=== PATIENT | female | born 1950 | race Caucasian/White ===

== ENCOUNTER 2016-08-12 22:51 | Emergency (ER) | payer OTHER ==
[~2016-08-12] VITALS: Ht 167.6 cm; Wt 49.9 kg
[~2016-08-12 22:51] MED LIST: ALPR2TAB2 PO; FERR325T PO; LEV50T PO; LOVA10TA54 PO; METO25TA62 PO; MIRT30TA PO; MULTTAB61 PO; OMEP20CA5 PO; OXYC10TA44 PO; PREMARIN PO; VENL150C58 PO
[2016-08-13 02:39] VITALS: BP 159/73
== END 2016-08-13 02:46 | disposition home or self-care (01) ==
LOC: ER 22:52
DX: M79.7 Fibromyalgia (principal); Z90.710 Acquired absence of both cervix and uterus; K21.9 Gastro-esophageal reflux disease without esophagitis; E78.5 Hyperlipidemia, unspecified; I10 Essential (primary) hypertension; F17.210 Nicotine dependence, cigarettes, uncomplicated

== ENCOUNTER 2017-04-11 13:20 | Emergency (ER) | payer OTHER ==
[~2017-04-11] VITALS: Ht 167.6 cm; Wt 40.8 kg
[~2017-04-11 13:20] MED LIST changes: +FERR-20 PO; -FERR325T PO; -OMEP20CA5 PO; +OMEP20CA74 PO
[2017-04-11 14:09] LABS: Basophils # (auto) 0 uL; Basophils % (auto) 0.6 % (0.0-2.0); Eosinophils # (auto) 0 uL; Eosinophils % (auto) 0.4 % (0.0-7.0); Hematocrit 42.6 % (36.0-46.0); Hemoglobin 13.9 g/dL (12.2-16.2); Lymphocytes # (auto) 1.9 uL; Mean Corpuscular Hemoglobin 30.8 pg (28.0-32.0); Mean Corpuscular Hgb Conc. 32.7 g/dL (32.0-36.0); Mean Corpuscular Volume 94.1 fL (80.0-100.0); Mean Platelet Volume 7.3 fL (6.9-10.8); Monocytes # (auto) 0.6 uL; Monocytes % (auto) 8.4 % (0.0-12.0); Neutrophils # (auto) 4.4 uL; Neutrophils % (auto) 63.6 % (37.0-80.0); Nucleated Red Blood Cells % 0.1 %; Platelet Count (auto) 351 10^3/uL (140-450); Red Cell Distribution Width 14.4 % (11.8-14.3); White Blood Cell 6.9 10^3/uL (4.4-10.8)
[2017-04-11 14:42] LABS: Albumin 3.4 g/dL (3.4-5.0); BUN/Creatinine Ratio 31.1; Bilirubin, Total 0.2 mg/dL (0.2-1.0); Calcium 8.6 mg/dL (8.5-10.1); Magnesium 2.4 mg/dL (1.6-2.6); Total Protein 6.5 g/dL (6.4-8.2)
[2017-04-11 16:31] VITALS: BP 125/85
== END 2017-04-11 16:47 | disposition home or self-care (01) ==
LOC: ER 13:27
DX: K58.9 Irritable bowel syndrome, unspecified (principal); K21.9 Gastro-esophageal reflux disease without esophagitis; E78.5 Hyperlipidemia, unspecified; I10 Essential (primary) hypertension; Z90.49 Acquired absence of other specified parts of digestive tract; Z90.710 Acquired absence of both cervix and uterus; F17.210 Nicotine dependence, cigarettes, uncomplicated
CPT/HCPCS: 36415; 74176; 80053; 83735; 85025

== ENCOUNTER 2018-12-29 01:31 | Emergency (ER) | payer MEDICARE, OTHER ==
[~2018-12-29] VITALS: Ht 172.7 cm; Wt 54.4 kg
[2018-12-29 01:39] VITALS: BP 170/80
== END 2018-12-29 05:25 | disposition left against medical advice (07) ==
LOC: ER 01:31 → EDBD 01:31 → ER 05:25
DX: R10.13 Epigastric pain (principal); R11.2 Nausea with vomiting, unspecified; R19.7 Diarrhea, unspecified; Z53.21 Procedure and treatment not carried out due to patient leaving prior to being seen by health care provider

== ENCOUNTER 2019-02-09 10:27 | Inpatient (IN) | payer MEDICARE, OTHER ==
[2019-02-09] VITALS (23 sets, daily range): BP systolic 95–127; BP diastolic 45–72
[~2019-02-09] VITALS: Ht 160 cm; Wt 50.0 kg
--- NOTE | 2019-02-09 03:10 | NUR ---
pt vs stable no ss of distress noted at this time. will continue to care for and monitor
[2019-02-09] MEDS ORDERED: MIDAZOLAM DRIP 50 mg/50mL 50 ML IV ONE (10:33)
[2019-02-09] MEDS ORDERED: SODIUM CHLORIDE 0.9% 1,000 ML IV ONE ×3 (10:40→13:45)
[2019-02-09] MEDS ORDERED: PANTOPRAZOLE 80 MG in SODIUM CHL 0.9% 60 ML IV ONE (10:45)
[2019-02-09] MEDS ORDERED: NOREPINEPHRINE 8 MG/250ML KIT 250 ML IV ONE (10:48)
[2019-02-09 11:07] LABS: Basophils # (auto) 0.1 uL; Eosinophils # (auto) 0 uL; Hemoglobin 9.5 g/dL (12.2-16.2); Neutrophils # (auto) 10.5 uL
[2019-02-09 11:09] LABS: Basophils % (auto) 0.7 % (0.0-2.0); Eosinophils % (auto) 0.1 % (0.0-7.0); Hematocrit 30.2 % (36.0-46.0); Lymphocytes # (auto) 1.7 uL; Lymphocytes % (auto) 13.4 % (10.0-50.0); Mean Corpuscular Hemoglobin 24.6 pg (28.0-32.0); Mean Corpuscular Hgb Conc. 31.4 g/dL (32.0-36.0); Mean Corpuscular Volume 78.2 fL (80.0-100.0); Monocytes # (auto) 0.7 uL; Monocytes % (auto) 5.6 % (0.0-12.0); Neutrophils % (auto) 80.2 % (37.0-80.0); Platelet Count (auto) 578 10^3/uL (140-450); Red Blood Cells 3.87 10^6/uL (4.0-5.20); Red Cell Distribution Width 17.5 % (11.8-14.3); White Blood Cell 13.1 10^3/uL (4.4-10.8)
[2019-02-09 11:11] LABS: Urine Bacteria FEW /hpf (None Seen); Urine Blood Negative /uL (Negative); Urine Hyaline Cast FEW /lpf (0 - 2); Urine Mucus FEW (None Seen); Urine Specific Gravity 1.021 (1.001-1.035); Urine WBC 2 /hpf (0 - 5)
[2019-02-09 11:28] LABS: Albumin 2.4 g/dL (3.4-5.0); Calcium 8.3 mg/dL (8.5-10.1); Potassium 3.3 mmol/L (3.5-5.1)
[2019-02-09 11:30] LABS: Lactic Acid w/Reflex 6.4 mmol/L (0.4-2.0)
[2019-02-09 11:32] LABS: Bilirubin, Total 0.3 mg/dL (0.2-1.0); Total Protein 5.3 g/dL (6.4-8.2)
[2019-02-09] MEDS ORDERED: VANCOMYCIN 1GM/250ML 250 ML IV ONE (11:45)
[2019-02-09] MEDS ORDERED: PIPERACILLIN-TAZOB 3.375GM 100 ML IV ONE (11:45)
[2019-02-09] MEDS ORDERED: NOREPINEPHRINE 8 MG/250ML KIT 250 ML IV SCH (13:45)
[2019-02-09] MEDS ORDERED: NITROGLYCERIN 0.4 MG SL TAB SL PRN (13:45)
[2019-02-09] MEDS ORDERED: SODIUM CHLORIDE 0.9% 2,000 ML IV ONE ×2 (13:45)
[2019-02-09] MEDS ORDERED: DEXTROSE (50%) 50ML SYRG IV PRN (13:45)
[2019-02-09] MEDS ORDERED: VANCOMYCIN PER PHARMACY 0 MG IV SCH (13:45)
[2019-02-09] MEDS ORDERED: MORPHINE SULF INJ 2 MG/ML SYRINGE 1ML IV PRN (13:45)
[2019-02-09 13:53] LABS: Basophils # (auto) 0.1 uL; Eosinophils # (auto) 0 uL; Monocytes # (auto) 1.2 uL
[2019-02-09 13:55] LABS: Basophils % (auto) 0.7 % (0.0-2.0); Hematocrit 27.5 % (36.0-46.0); Hemoglobin 8.4 g/dL (12.2-16.2); Lymphocytes # (auto) 1.3 uL; Mean Corpuscular Hemoglobin 24.3 pg (28.0-32.0); Mean Corpuscular Hgb Conc. 30.5 g/dL (32.0-36.0); Mean Corpuscular Volume 79.7 fL (80.0-100.0); Monocytes % (auto) 5.4 % (0.0-12.0); Neutrophils # (auto) 18.6 uL; Neutrophils % (auto) 87.9 % (37.0-80.0); Platelet Count (auto) 584 10^3/uL (140-450); Red Blood Cells 3.45 10^6/uL (4.0-5.20); Red Cell Distribution Width 17.9 % (11.8-14.3); White Blood Cell 21.2 10^3/uL (4.4-10.8)
[2019-02-09 14:28] LABS: INR 1.01 (0.9-1.15); Partial Thromboplastin Time 22.2 sec (23.64-32.05)
[2019-02-09] MEDS: POTASSIUM CHLORIDE 20 MEQ in D5W 5% 1,000 ML IV SCH (14:39)
[2019-02-09] MEDS: InsuLIN REG 1unit/0.01ml Soln (100units/ml) SC SCH ×2 (16:15→22:00)
[2019-02-09] MEDS: metroNIDAZOLE 500MG/100ML 100 ML IV SCH ×2 (17:36→23:32)
--- NOTE | 2019-02-09 17:55 | NUR ---
received report from security guard supervisor
[2019-02-09] MEDS: ACCU-CHEK COMFORT CURVE STRIP VI SCH ×2 (18:11→22:00)
--- NOTE | 2019-02-09 18:37 | NUR ---
Admit to ICU from JESSICA RODRIGUEZitted to ICU via antoinette on bus and sys integration senior manager. Patient transfered to bed, connected to icu monitors, BVM at bedside. Patient connected to ICU monitoring, weighed by bedscale, oriented to EDDY RUIZ, RN primary RN, unit,and poc.
--- NOTE | 2019-02-09 19:00 | NUR ---
family called pt daughter called. poc reviewed with pt daughter. all questions and concerns addressed at this time.
--- NOTE | 2019-02-09 19:15 | NUR ---
open assumed care of female pt from er via er bed on room air. connected pt to icu monitors, pt vs are stable. pt states shes not in pain, she is just really tired. pupils equal and briskly reactive. pt is ao x3.place self and time.pt educated on where and why she is here. pt verbalized understanding. , pt has 20 g to L wrist and central rij, both iv sites are asymptomatic, dressings are clean dry and intact. pt has a rectal tube draining what appears to be a large amount of dark red blood mixed with stool.pt has a rectal thermometer. pinkish blanchable area to sacrum. Optifoam in place as a preventive even though pt is able to move and turn herself. pillows are in place to offload pressure of pts stuart prominences.pt educated operations planner light, pt verbalized understanding, call light within reach. bed is in lowest position, wheels locked, hob 45*. pt in full view of rn station. will continue to care for and monitor.
--- NOTE | 2019-02-09 19:30 | NUR ---
radiology called and said to advance the ngt 6cm placement verified.
[2019-02-09] MEDS: PIPERACILLIN-TAZOB 3.375GM 100 ML IV SCH ×2 (20:10→23:32)
--- NOTE | 2019-02-09 21:45 | NUR ---
family called pt daughter called.pt status update with pt daughter. all questions and concerns addressed at this time.
--- NOTE | 2019-02-09 22:20 | NUR ---
no insulin at this time pt bs is within normal range, no insulin needed at this time.
[2019-02-10] VITALS (66 sets, daily range): BP systolic 110–141; BP diastolic 49–72
[2019-02-10] MEDS: POTASSIUM CHLORIDE 20 MEQ in D5W 5% 1,000 ML IV SCH ×2 (02:17→08:05)
--- NOTE | 2019-02-10 03:50 | NUR ---
hygiene partial bed bath and aric change preformed. suction canisters and tubing changed.
[2019-02-10 04:38] LABS: Eosinophils # (auto) 0 uL; Hematocrit 32.8 % (36.0-46.0); Hemoglobin 10.7 g/dL (12.2-16.2); Lymphocytes # (auto) 1.9 uL; Mean Corpuscular Hgb Conc. 32.6 g/dL (32.0-36.0); Monocytes # (auto) 0.9 uL
[2019-02-10 04:41] LABS: Basophils # (auto) 0 uL; Basophils % (auto) 0.4 % (0.0-2.0); Eosinophils % (auto) 0.1 % (0.0-7.0); Lymphocytes % (auto) 17.6 % (10.0-50.0); Mean Corpuscular Hemoglobin 26.2 pg (28.0-32.0); Mean Corpuscular Volume 80.3 fL (80.0-100.0); Monocytes % (auto) 8.6 % (0.0-12.0); Neutrophils % (auto) 73.3 % (37.0-80.0); Platelet Count (auto) 480 10^3/uL (140-450); Red Blood Cells 4.08 10^6/uL (4.0-5.20); Red Cell Distribution Width 18.1 % (11.8-14.3)
--- NOTE | 2019-02-10 05:05 | NUR ---
pt awake and talking pt reoriented to why she is here. pt vs are stable. no ss of distress noted at this time
[2019-02-10 05:15] LABS: Albumin 2.2 g/dL (3.4-5.0); BUN/Creatinine Ratio 44.6
[2019-02-10 05:20] LABS: Bilirubin, Total 0.3 mg/dL (0.2-1.0); Total Protein 4.9 g/dL (6.4-8.2)
[2019-02-10] MEDS: metroNIDAZOLE 500MG/100ML 100 ML IV SCH ×3 (05:37→21:45)
[2019-02-10] MEDS: PIPERACILLIN-TAZOB 3.375GM 100 ML IV SCH ×4 (06:13→23:39)
[2019-02-10] MEDS: InsuLIN REG 1unit/0.01ml Soln (100units/ml) SC SCH ×4 (06:24→21:45)
[2019-02-10] MEDS: ACCU-CHEK COMFORT CURVE STRIP VI SCH ×4 (06:25→21:45)
--- NOTE | 2019-02-10 06:46 | NUR ---
called pts daughter joon updated on pts status. joon verbalized understanding and stated she will be in later today to picking table worker pts medications and visit her mom.
--- NOTE | 2019-02-10 06:49 | NUR ---
no insulin at this time pt bs is within normal range, per prescribed protocol no insulin needed at this time.
[2019-02-10] MEDS ORDERED: POTASSIUM CHL 20MEQ/100ML 100 ML IV SCH (07:45)
[2019-02-10] MEDS ORDERED: POTASSIUM EFFERVESENT TAB 25 MEQ PO ONE ×2 (07:45→08:00)
[2019-02-10] MEDS: ACETAMINOPHEN 650 mg PER 20 mL UD PO PRN (08:01)
[2019-02-10] MEDS ORDERED: POTASSIUM CHL 20MEQ/100ML 200 ML IV ONE (08:04)
[2019-02-10] MEDS: POTASSIUM CHL 20MEQ/100ML 100 ML IV SCH ×2 (08:20→09:36)
--- NOTE | 2019-02-10 09:35 | NUR ---
Dr. Perez at bedside.
--- NOTE | 2019-02-10 11:04 | NUR ---
Stool sample collected and sent to lab.
--- NOTE | 2019-02-10 14:12 | NUR ---
Dr. Chua at bedside.
[2019-02-10] MEDS ORDERED: GOLYTELY 4L KIT NG ONE (14:30)
--- NOTE | 2019-02-10 14:46 | NUR ---
Cardiac consult placed by the RN, spoke with Swati via answering service.
[2019-02-10 14:52] LABS: Basophils # (auto) 0.1 uL; Basophils % (auto) 0.6 % (0.0-2.0); Eosinophils # (auto) 0 uL; Hemoglobin 10.5 g/dL (12.2-16.2); Lymphocytes # (auto) 1.7 uL; Monocytes # (auto) 0.8 uL; Monocytes % (auto) 7.7 % (0.0-12.0)
[2019-02-10 14:54] LABS: Hematocrit 32.6 % (36.0-46.0); Lymphocytes % (auto) 16.7 % (10.0-50.0); Mean Corpuscular Hgb Conc. 32.3 g/dL (32.0-36.0); Mean Corpuscular Volume 80.3 fL (80.0-100.0); Neutrophils # (auto) 7.5 uL; Nucleated Red Blood Cells % 0.1 %; Platelet Count (auto) 486 10^3/uL (140-450); Red Blood Cells 4.06 10^6/uL (4.0-5.20); Red Cell Distribution Width 18.5 % (11.8-14.3)
--- NOTE | 2019-02-10 15:21 | NUR ---
Critical Lab Dr. Perez updated regarding patients critical blood cultures, no new orders received. Patient is already on antibiotic treatment per MD.
[2019-02-10] MEDS ORDERED: VANCOMYCIN 1,250 MG in D5W 5% 250 ML IV ONE (16:00)
--- NOTE | 2019-02-10 16:00 | NUR ---
Family m liberty at bedside, updated with POC. Patients daughter verbalized understanding.
[2019-02-10] MEDS: MORPHINE SULF INJ 2 MG/ML SYRINGE 1ML IV PRN ×2 (16:18→20:46)
--- NOTE | 2019-02-10 16:23 | NUR ---
SBAR report given MEGHNA Yarbrough.
--- NOTE | 2019-02-10 17:00 | NUR ---
ICU DOWNGRADE to 282 JESSICA RIVERA admitted to Telemetry unit after SBAR received. Patient oriented to MARIAELENA TEMPLE, RN primary RN, unit, room, bed, and unit policies regarding patient care and visiting hours. Patient now on continuous telemetry monitoring, tele box # 59 and telemetry reading on arrival to unit is sinus rhythm 96 bpm with a BBB. Patient placed on bedside oxygen, weighed by bed scale and encouraged to call if they need something. All questions and concerns addressed, patient verbalized understanding.
--- NOTE | 2019-02-10 17:02 | NUR ---
Patient transported to room 282 with all personal belongings. Family member at bedside. No distress noted at time of departure.
--- NOTE | 2019-02-10 19:25 | NUR ---
Opening Shift Note Assumed care of patient, awake and alert. No signs of sob. Patient verbalized pain in abdomen. Will administer ordered pain medication. Instructed on POC and to call for assist PRN, will continue to monitor for changes Q1hr and PRN. Side rails up x2. Bed locked in lowest position. Call light within reach.
--- NOTE | 2019-02-10 19:59 | NUR ---
Emptied 600 cc of dark green liquid from stool collection bag.
--- NOTE | 2019-02-10 21:42 | NUR ---
MD Called Spoke to Dr. Graham re:current pain medication Morphine 2mg Q4PRN not relieving pain. This nurse also confirmed to continue with Golitely prep. with Cardio clearance still pending. MD ordered to continue with prep. and to increase Morphine to 4mg Q4PRN. Continue care.
[2019-02-10] MEDS: MORPHINE SULFATE 4 MG/ML SYR/VIAL IV PRN (22:52)
[2019-02-10] MEDS: MUPIROCIN 2% OINT 15gm or 22gm TOP SCH (22:52)
[2019-02-11] MEDS: MORPHINE SULFATE 4 MG/ML SYR/VIAL IV PRN (02:45)
[2019-02-11 05:58] VITALS: BP 118/58
[2019-02-11 06:02] LABS: Basophils % (auto) 0.5 % (0.0-2.0); Eosinophils # (auto) 0 uL; Eosinophils % (auto) 0.2 % (0.0-7.0); Lymphocytes # (auto) 1.7 uL; Monocytes # (auto) 0.7 uL; Neutrophils % (auto) 76.7 % (37.0-80.0); Red Cell Distribution Width 18.2 % (11.8-14.3)
[2019-02-11 06:07] LABS: Basophils # (auto) 0 uL; Hematocrit 30.7 % (36.0-46.0); Mean Corpuscular Hemoglobin 26.6 pg (28.0-32.0); Mean Corpuscular Hgb Conc. 32.7 g/dL (32.0-36.0); Mean Corpuscular Volume 81.2 fL (80.0-100.0); Monocytes % (auto) 6.6 % (0.0-12.0); Neutrophils # (auto) 8.2 uL; Platelet Count (auto) 460 10^3/uL (140-450); Red Blood Cells 3.78 10^6/uL (4.0-5.20); White Blood Cell 10.7 10^3/uL (4.4-10.8)
[2019-02-11 06:33] LABS: Albumin 2.2 g/dL (3.4-5.0); BUN/Creatinine Ratio 20.2; Calcium 8.2 mg/dL (8.5-10.1); Potassium 4.3 mmol/L (3.5-5.1)
[2019-02-11 06:35] LABS: Bilirubin, Total 0.4 mg/dL (0.2-1.0); Total Protein 4.9 g/dL (6.4-8.2)
[2019-02-11] MEDS: metroNIDAZOLE 500MG/100ML 100 ML IV SCH (06:47)
[2019-02-11] MEDS: PIPERACILLIN-TAZOB 3.375GM 100 ML IV SCH ×3 (06:48→17:27)
[2019-02-11] MEDS: ACCU-CHEK COMFORT CURVE STRIP VI SCH ×4 (06:48→21:52)
[2019-02-11] MEDS: InsuLIN REG 1unit/0.01ml Soln (100units/ml) SC SCH ×4 (06:48→21:51)
[2019-02-11] MEDS: POTASSIUM CHLORIDE 20 MEQ in D5W 5% 1,000 ML IV SCH ×2 (07:03→18:37)
--- NOTE | 2019-02-11 07:30 | NUR ---
Dr. Chua called Ordered to re-call Dr. Church for a cardio clearance prior to colonoscopy. Will endorse to day shift RN.
--- NOTE | 2019-02-11 07:46 | NUR ---
Endorsed care to day shift MEGHNA Davis. Patient in bed awake with no signs of distress.
--- NOTE | 2019-02-11 08:27 | NUR ---
PT CLEARED BY CARDIO FOR COLONOSCOPY. DR. COOPER PAGED AND LEFT MESSAGE REGARDING CLEARANCE WITH DR. COOPER AUTOMATION TEST ENGINEER KWAKU.
[2019-02-11 09:00] VITALS: BP 99/51
[2019-02-11] MEDS: HYDROmorphone HCL 2 MG/ML VL IV PRN ×3 (09:35→15:55)
[2019-02-11] MEDS: SODIUM CHLORIDE 0.9% 1,000 ML IV SCH ×2 (09:35→21:51)
[2019-02-11] MEDS: MUPIROCIN 2% OINT 15gm or 22gm TOP SCH ×2 (09:35→21:52)
[2019-02-11] MEDS: VANCOMYCIN 750mg/250ml 250 ML IV SCH (10:51)
--- NOTE | 2019-02-11 11:24 | NUR ---
Nutrition Assessment Notes please see attached link for complete assessment Est. Needs IBW [id number] kcal (25-30 kcal/kgBW), 52-67 gms pro (1.0-1.3 gms/kgBW r/t severe hypoalb). Will continue to monitor pertinent labs and reassess nutrient need prn Addendum: 02/11/19 at [address] Amended: Links added.
[2019-02-11] MEDS ORDERED: diphenhdrAMINE HCL 50 MG/1 ML VL ONE (13:06)
[2019-02-11] MEDS ORDERED: SODIUM CHLORIDE LOCK 10 ML ONE (13:06)
--- NOTE | 2019-02-11 13:30 | NUR ---
PT TAKEN TO GI LAB. NO DISTRESS AT MOMENT.
[2019-02-11] MEDS: MIDAZOLAM HCL 5 MG/ML-1ML VIAL ONE ×3 (13:36→13:43)
[2019-02-11] MEDS: fentaNYL CITRATE 100 MCG/2 ML VL ONE ×3 (13:36→13:43)
--- NOTE | 2019-02-11 14:40 | NUR ---
PT BACK IN UNIT, PT AWAKE, ALERT, ORIENTEDx4, EFFORTLESS BREATHING ON ROOM AIR. IV FLUIDS RESUMED. FLEXI SEAL IS NOT PRESENT AT THIS TIME, REMOVED IN GI LAB. BED LOCKED AND IN LOWEST POSITION. CALL LIGHT WITHIN REACH. WILL CONTINUE TO MONITOR.
[2019-02-11 17:00] VITALS: BP 134/62
--- NOTE | 2019-02-11 18:20 | NUR ---
NGT DC'D PER ORDER. PT TOLERATED PROCEDURE WELL. CALL LIGHT WITHIN REACH.
[2019-02-11 21:00] VITALS: BP 125/62
[2019-02-12] MEDS: PIPERACILLIN-TAZOB 3.375GM 100 ML IV SCH ×3 (00:12→12:00)
[2019-02-12 04:30] VITALS: BP 141/67
--- NOTE | 2019-02-12 05:39 | NUR ---
BM Patient had a small bile colored liquid BM.
[2019-02-12 05:58] LABS: Basophils # (auto) 0 uL; Basophils % (auto) 0.5 % (0.0-2.0); Eosinophils # (auto) 0 uL; Eosinophils % (auto) 0.4 % (0.0-7.0); Hematocrit 26.7 % (36.0-46.0); Hemoglobin 8.7 g/dL (12.2-16.2); Lymphocytes # (auto) 1.5 uL; Lymphocytes % (auto) 17.9 % (10.0-50.0); Mean Corpuscular Hemoglobin 26.6 pg (28.0-32.0); Mean Corpuscular Hgb Conc. 32.7 g/dL (32.0-36.0); Mean Corpuscular Volume 81.1 fL (80.0-100.0); Monocytes # (auto) 0.5 uL; Monocytes % (auto) 5.8 % (0.0-12.0); Neutrophils # (auto) 6.1 uL; Neutrophils % (auto) 75.4 % (37.0-80.0); Platelet Count (auto) 389 10^3/uL (140-450); Red Blood Cells 3.29 10^6/uL (4.0-5.20); Red Cell Distribution Width 18.2 % (11.8-14.3); White Blood Cell 8.1 10^3/uL (4.4-10.8)
[2019-02-12 06:11] LABS: BUN/Creatinine Ratio 13.8; Calcium 7.9 mg/dL (8.5-10.1); Potassium 3.2 mmol/L (3.5-5.1)
[2019-02-12 06:12] LABS: Bilirubin, Total 0.4 mg/dL (0.2-1.0); Total Protein 4.6 g/dL (6.4-8.2)
[2019-02-12] MEDS: ACCU-CHEK COMFORT CURVE STRIP VI SCH ×2 (06:40→11:59)
[2019-02-12] MEDS: SODIUM CHLORIDE 0.9% 1,000 ML IV SCH ×2 (06:40→15:15)
[2019-02-12] MEDS: InsuLIN REG 1unit/0.01ml Soln (100units/ml) SC SCH ×2 (06:59→11:30)
--- NOTE | 2019-02-12 07:30 | NUR ---
Endorsed care to day shift RN.
[2019-02-12] MEDS ORDERED: POTASSIUM CHL 20 Meq TABLET PO ONE (08:00)
[2019-02-12] MEDS: POTASSIUM CHLORIDE 20 MEQ in D5W 5% 1,000 ML IV SCH (08:50)
[2019-02-12 09:00] VITALS: BP 135/61
--- NOTE | 2019-02-12 09:30 | NUR ---
Called Dr. Perez that patient requested to stay for another day because she's still too weak to get up, having liquid greenish stools. MD ordered to keep the patient for another day, possible discharge tomorrow, Monday, ordered physical therapy.
--- NOTE | 2019-02-12 09:43 | NUR ---
Dr. Perez at bedside. MD ordered patient will stay for another day, possible discharge tomorrow, advance diet as tolerated, follow up with GI doctor as outpatient.
[2019-02-12] MEDS: VANCOMYCIN 750mg/250ml 250 ML IV SCH (09:52)
[2019-02-12] MEDS: MUPIROCIN 2% OINT 15gm or 22gm TOP SCH ×2 (09:53→21:22)
--- NOTE | 2019-02-12 12:00 | NUR ---
Patient sitting in chair, stated she wants to go home today, requested to have her Garland catheter removed. Garland catheter removed, about 750 ml of clear, yellowish urine collected from the Garland catheter. Will call Dr. Perez.
--- NOTE | 2019-02-12 12:08 | NUR ---
Called Dr. Perez. made aware patient wants to go home today. Dr. Perez ordered to resume the discharge order, let the patient go home today.
--- NOTE | 2019-02-12 12:40 | NUR ---
MRSA (both nares) swab done. Specimen sent to Laboratory.
[2019-02-12 13:00] VITALS: BP 130/70
--- NOTE | 2019-02-12 15:00 | NUR ---
PT DECLINED P.T. BECAUSE OF GOING HOME.
--- NOTE | 2019-02-12 15:20 | NUR ---
Daughter at bedside, stated the patient sent her concerning text messages of ending her life. Informed daughter that patient is not confused, signed the discharge papers, waiting for her granddaughter to pick her up. Daughter said patient lives with her but she works. Charge Nurse Cindy came over, spoke with the patient and daughter.
--- NOTE | 2019-02-12 15:28 | NUR ---
Called Dr. Perez that patient has suicidal thoughts, daughter at bedside stated the patient sent her messages that she wanted to , Charge Nurse Cindy spoke with the patient, patient stated she's a danger to the kids (daughter's kids). Dr. Perez ordered Tele Psych Consult, if cleared by psychiatrist, proceed with discharge, ordered not to reinsert a new IV line, no more IV antibiotics.
--- NOTE | 2019-02-12 15:40 | NUR ---
[facility] Tele Monitor not available until tomorrow as per Charge Nurse Cindy. Patient to have a Sitter.
--- NOTE | 2019-02-12 15:45 | NUR ---
Informed Will of Tele QMed for Tele Psych Consult that [facility] Tele Psych Monitor is not available until tomorrow, will look for the [facility] Tele Monitor to be set up. Will said give them a call back ([phone]) when the machine is available at the patient's room.
--- NOTE | 2019-02-12 16:06 | NUR ---
Discharge planning per consult, patient has orders to dc with home health. [facility] Placed a follow up call, spoke with Control Clerk Head Taylor and was advised that they will use [facility]. Placed a follow up call to [facility], spoke with Nandini and was advised that they did receive the referral, and they will accept this patient onto services and start of care will be within 24-48 hours upon discharge. Nurse Brock was advised of dc plan. Addendum: 02/12/19 at 1613 by ANN ADAME Amended: Links added.
[2019-02-12] MEDS: ACETAMINOPHEN 650 mg PER 20 mL UD PO PRN ×2 (16:14→21:23)
--- NOTE | 2019-02-12 16:43 | NUR ---
Assessment Pt is a 68 yr old female alert and oriented. Prior to admit, pt lives with daughter and her family. Pt's daughter, Chelsea Randhawa, is her emergency contact at [phone]. Pt was independent with ADLs and ambulated with a cane or walker. Pt admitted due to complications with ulcerative colitis. Pt is aware and accepting of diagnosis. Pt's income is stable. Pt has no interest in AD. Pt granddaughter can transport home upon d/c. Pt plans to d/c home upon medical clearance. Addendum: 02/12/19 at 1647 by CHEPE DIAZ Amended: Links added.
[2019-02-12 17:00] VITALS: BP 126/69
--- NOTE | 2019-02-12 17:00 | NUR ---
Sadaf/NANDO Zimmer at bedside.
--- NOTE | 2019-02-12 19:00 | NUR ---
Called Dr. Perez that the Tele Psych monitors are all not working, possibly get fixed by tomorrow, Monday, Sitter at bedside. Dr. Perez ordered to keep the patient until the Tele Psych Consult is done by tomorrow, if cleared by psychiatrist, proceed with discharge. said no need for IV insertion, discontinue Accu check and IV antibiotics, follow up with Tele Psych Consult tomorrow.
--- NOTE | 2019-02-12 20:30 | NUR ---
Patient has verbalizes of having no suicidal thoughts at this time, or has no future plan. Addendum: 02/13/19 at 0410 by Bc Guerin RN sitter at bedside.
--- NOTE | 2019-02-13 | NUR ---
Patient refused to turn/repositioned q2 hours for skin breakdown prevention. Educated patient on the importance of turning/repositioned q2 hours, and patient verbally acknowledge education given and still refuses to turn or get repositioned q 2 hours. Educated patient, that she has blanchable redness on buttocks/sacrum area and its very important on turning and repositioned. Patient still refuses. Sitter at bedside.
--- NOTE | 2019-02-13 02:00 | NUR ---
patient still refuses to be turned/repositioned q2 hours.
--- NOTE | 2019-02-13 04:07 | NUR ---
patient still refuses to be turned/repositioned q2 hours.
[2019-02-13 04:23] VITALS: BP 147/54
[2019-02-13 06:18] LABS: Albumin 2.1 g/dL (3.4-5.0); BUN/Creatinine Ratio 15.1; Calcium 7.9 mg/dL (8.5-10.1)
[2019-02-13 06:19] LABS: Basophils # (auto) 0 uL; Basophils % (auto) 0.3 % (0.0-2.0); Bilirubin, Total 0.3 mg/dL (0.2-1.0); Eosinophils # (auto) 0 uL; Eosinophils % (auto) 0.5 % (0.0-7.0); Hematocrit 28.2 % (36.0-46.0); Lymphocytes # (auto) 1.4 uL; Lymphocytes % (auto) 23.2 % (10.0-50.0); Mean Corpuscular Hgb Conc. 32.1 g/dL (32.0-36.0); Monocytes # (auto) 0.4 uL; Monocytes % (auto) 6.7 % (0.0-12.0); Neutrophils # (auto) 4.2 uL; Neutrophils % (auto) 69.3 % (37.0-80.0); Platelet Count (auto) 408 10^3/uL (140-450); Red Blood Cells 3.48 10^6/uL (4.0-5.20); Red Cell Distribution Width 18.3 % (11.8-14.3); Total Protein 4.7 g/dL (6.4-8.2); White Blood Cell 6.1 10^3/uL (4.4-10.8)
[2019-02-13 06:28] LABS: Potassium 2.9 mmol/L (3.5-5.1)
--- NOTE | 2019-02-13 06:29 | NUR ---
received phone call from phlebotomist lab assistant ilene and he notified me that patient has critical value of potassium of 2.9.
--- NOTE | 2019-02-13 06:30 | NUR ---
paged md to notify of critical value of potassium 2.9, awaiting phone call back.
[2019-02-13] MEDS ORDERED: POTASSIUM CHL 20 Meq TABLET PO ONE (06:45)
--- NOTE | 2019-02-13 06:47 | NUR ---
spoke to md kaur from [facility], and notified her of patient having critical value potassium of 2.9. Md kaur provided new order of potassium 40 meq po one time dose. read back and confirmed. will carry out.
--- NOTE | 2019-02-13 07:30 | NUR ---
Opening Shift Note Assuming care of patient at this time. Patient is awake and alert. Patient shows no signs or symptoms of distress or shortness of breath. Instructed patient on the plan of care for today and to call for assistance as needed. When asked if she is having suicidal thoughts, patient states, "Not today, but I was yesterday." Informed patient of discharge plans, patient states, "I don't feel safe to go home. I'm having hallucinations. I've been having thoughts of hurting myself." When asked if she has a suicidal plan, patient replies, "Yes. I always think about my medications." Asked patient if she thinks about overdosing, patient replies, "Yes." Call light within reach. Sitter at bedside for safety.
[2019-02-13] MEDS: ACETAMINOPHEN 650 mg PER 20 mL UD PO PRN ×2 (08:44→14:45)
[2019-02-13 09:00] VITALS: BP 133/68
--- NOTE | 2019-02-13 09:00 | NUR ---
Family at bedside Daughter at bedside at this time.
--- NOTE | 2019-02-13 10:00 | NUR ---
Telepsych Machines for telepsych are still not working. Telepsych unable to be done at this time.
[2019-02-13] MEDS: MUPIROCIN 2% OINT 15gm or 22gm TOP SCH ×2 (10:05→21:30)
--- NOTE | 2019-02-13 11:17 | NUR ---
Nutrition Follow-up Notes Wt.: 46.9 kg Pt was sleeping with BLACK TOP PAVER OPERATOR by bedside. per records pt with thought abt harming herself, active telepsych eval. per BLACK TOP PAVER OPERATOR pt is eating fairly well with no N.V. pt is now on soft diet with fair PO of 60%x 3 per RN doc Est. Needs IBW [id number] kcal (25-30 kcal/kgBW), 52-67 gms pro (1.0-1.3 gms/kgBW r/t severe hypoalb). Will continue to monitor pertinent labs and reassess nutrient need prn Labs: CA 7.9 L, ALB 2.1 L. Skin: Andres 16, mod risk redness sacrum per RN doc GI: Pt had 6 BM yesterday per catch basin cleaner. PES: Partially resolved: Increased nutrient needs r/t current medical condition aeb pt`s NPO with severe hypoalb 2.) Altered nutrition related lab values r/t acute/chronic medical condition aeb hyperglycemia, hypocalcemia, severe hypoalb Will continue to monitor PO intake, pertinent labs, skin status and weight trends. F/u in 3-5 days. Additional Recommendation: 1.) Consider ensure Enlive 1 carton tid. 2) consider prostat 1 packet bid . 3) continue current plan of care
[2019-02-13] MEDS ORDERED: HYDROcodone-ACET 10/325MG TAB PO PRN (12:15)
[2019-02-13 13:00] VITALS: BP 127/60
--- NOTE | 2019-02-13 15:00 | NUR ---
Telepsych Telepsych has been completed today. Spoke with Dr. Dominguez, she is recommending a 5150 hold and transfer to an inpatient psych facility. Will notify planning analyst and MD.
--- NOTE | 2019-02-13 15:32 | NUR ---
Edy from [facility] called about pt and her need for inpt psych facility. He stated [facility] works with the following psych facilities. [facility] sreekanth pillai [phone], [facility] luz elena willtet,[phone] , [facility] [phone]. Before calling any facility, we will need tele psych consult and 5150 application completed
--- NOTE | 2019-02-13 15:57 | NUR ---
PREVIOUS NOTE this note is to save noc shift time from calling o/c RN. the facilities I listed would be the information given to you by after hours heritage person.
[2019-02-13 16:45] LABS: Urine Bacteria FEW /hpf (None Seen); Urine Blood Negative /uL (Negative); Urine Specific Gravity 1.014 (1.001-1.035); Urine WBC 20 /hpf (0 - 5)
[2019-02-13 17:00] VITALS: BP 135/71
--- NOTE | 2019-02-13 17:00 | NUR ---
5150 Hold automatic punch press operator, Kerri, is working on someone to write 5150 hold. Still awaiting telepsych report from Dr. Dominguez.
--- NOTE | 2019-02-13 17:07 | NUR ---
Call to Call to Dr. Olmos at this time to notify of patient's urinalysis. New orders given.
--- NOTE | 2019-02-13 19:45 | NUR ---
RECEIVED PATIENT IN BED, AAOX4. NO DISTRESS NOTED. INTRODUCED MYSELF TO THE PATIENT. ORIENTATION DONE. SITTER IS WITH THE PATIENT. AFEBRILE. NO SOB NOTED. ABDOMINAL PAIN NOTED. WILL MEDICATE PATIENT. MILD BLE WEAKNESS NOTED. POCS DISCUSSED WITH PATIENT AND SHOWED UNDERSTANDING. BED KEPT ON LOWEST POSITION. SIDE RAILS UP. CALL LIGHT/TABLE IN REACH. KEPT COMFORTABLE.
[2019-02-13 20:00] VITALS: BP 131/62
[2019-02-13] MEDS: NITROFURANTOIN (MONO) 100 mg CAP PO SCH (21:30)
[2019-02-13 22:00] VITALS: BP 131/62
[2019-02-14] MEDS: ACETAMINOPHEN 650 mg PER 20 mL UD PO PRN ×3 (02:01→17:55)
[2019-02-14 05:00] VITALS: BP 140/65
[2019-02-14 05:57] LABS: Basophils # (auto) 0.1 uL; Basophils % (auto) 1.2 % (0.0-2.0); Eosinophils # (auto) 0 uL; Eosinophils % (auto) 0.3 % (0.0-7.0); Hematocrit 27.7 % (36.0-46.0); Nucleated Red Blood Cells % 0.1 %; White Blood Cell 9.4 10^3/uL (4.4-10.8)
[2019-02-14 05:59] LABS: Hemoglobin 9.1 g/dL (12.2-16.2); Lymphocytes # (auto) 2.6 uL; Lymphocytes % (auto) 28.1 % (10.0-50.0); Mean Corpuscular Hgb Conc. 32.7 g/dL (32.0-36.0); Mean Corpuscular Volume 82.8 fL (80.0-100.0); Monocytes # (auto) 0.5 uL; Monocytes % (auto) 5.5 % (0.0-12.0); Neutrophils # (auto) 6.1 uL; Neutrophils % (auto) 64.9 % (37.0-80.0); Platelet Count (auto) 349 10^3/uL (140-450); Red Blood Cells 3.35 10^6/uL (4.0-5.20); Red Cell Distribution Width 18.4 % (11.8-14.3)
--- NOTE | 2019-02-14 06:13 | NUR ---
ON BED, ASLEEP. NO DISTRESS NOTED. FOR MORE CARE AND MANAGEMENT.
[2019-02-14 06:14] LABS: Albumin 2.2 g/dL (3.4-5.0); BUN/Creatinine Ratio 15.3; Calcium 8.2 mg/dL (8.5-10.1)
[2019-02-14 06:48] LABS: Bilirubin, Total 0.3 mg/dL (0.2-1.0)
--- NOTE | 2019-02-14 07:30 | NUR ---
Opening Shift Note Assuming care of patient at this time. Patient is awake and alert. Patient states she is, "feeling better today." Patient denies pain at this time. Bed is locked and lowered with side rails up x2. Instructed patient on the plan of care for today and to call for assistance as needed. Call light within reach. Will continue to round hourly and as needed. Sitter at bedside for safety.
[2019-02-14 09:00] VITALS: BP 124/63
--- NOTE | 2019-02-14 09:23 | NUR ---
isamar from [facility] called me to ask when is the 5150 application to be done since this is holding up transfer to in pt psych. I spoke to RN Kerri and they are trying to get a certified 5150 RN to write 5150 application. I also asked Kerri to have the pt's RN fax me the 5150 and tele psych report to [phone] so I can fax to [facility]
--- NOTE | 2019-02-14 09:26 | NUR ---
Call to Telepsych Call to telepsych at this time. Faxed report was never received. Gave fax information again. If not received within 30 minutes this RN will call back.
--- NOTE | 2019-02-14 09:31 | NUR ---
Telepsych Report Telepsych Report received. Will put in chart.
[2019-02-14] MEDS: NITROFURANTOIN (MONO) 100 mg CAP PO SCH ×2 (10:29→22:24)
[2019-02-14] MEDS: DULoxetine HCL 30 MG CAP PO SCH (10:29)
[2019-02-14] MEDS: MUPIROCIN 2% OINT 15gm or 22gm TOP SCH ×2 (10:30→22:25)
--- NOTE | 2019-02-14 12:00 | NUR ---
Fax to Weigh Machine Operator Faxed a copy of the 5150 hold and the telepsych report to [facility] at number provided at this time.
--- NOTE | 2019-02-14 12:30 | NUR ---
Call to [facility] Call to manager paid at this time. No answer.
[2019-02-14 13:00] VITALS: BP 124/65
--- NOTE | 2019-02-14 13:30 | NUR ---
Call to [facility] Call to route manager at this time. No answer.
--- NOTE | 2019-02-14 14:00 | NUR ---
Page to Lan Specialist Page to Neeta at this time regarding patient's placement. Awaiting callback.
[2019-02-14 17:00] VITALS: BP 141/79
--- NOTE | 2019-02-14 19:01 | NUR ---
Closing Shift Note Patient is resting in bed. Sitter at bedside. No information from case management regarding transfer. Dr. Olmos aware. Will endorse care to the gear shaper RN.
--- NOTE | 2019-02-14 19:30 | NUR ---
Opening Shift Note Report received from day shift RN. Assumed care of patient. Patient awake sitting in bed and alert x4. No S/S of distress/SOB noted and denies pain at this time. Sitter at bedside for safety. Instructed on POC and to call for assist PRN. Call light left within reach. Will continue to monitor for changes Q1hr and PRN.
[2019-02-14 22:00] VITALS: BP 140/71
[2019-02-14] MEDS ORDERED: TEMAZEPAM 15 MG CAP PO ONE (22:30)
[2019-02-15 05:00] VITALS: BP 139/79
[2019-02-15 05:37] LABS: Basophils # (auto) 0 uL; Basophils % (auto) 0.7 % (0.0-2.0); Eosinophils # (auto) 0 uL; Eosinophils % (auto) 0.4 % (0.0-7.0); Hematocrit 28.9 % (36.0-46.0); Hemoglobin 9.4 g/dL (12.2-16.2); Lymphocytes # (auto) 1.9 uL; Lymphocytes % (auto) 29.1 % (10.0-50.0); Mean Corpuscular Hemoglobin 26.4 pg (28.0-32.0); Mean Corpuscular Hgb Conc. 32.6 g/dL (32.0-36.0); Monocytes # (auto) 0.4 uL; Monocytes % (auto) 6.5 % (0.0-12.0); Neutrophils # (auto) 4.2 uL; Neutrophils % (auto) 63.3 % (37.0-80.0); Platelet Count (auto) 410 10^3/uL (140-450); Red Blood Cells 3.57 10^6/uL (4.0-5.20); Red Cell Distribution Width 18.5 % (11.8-14.3); White Blood Cell 6.6 10^3/uL (4.4-10.8)
[2019-02-15 05:55] LABS: Albumin 2.5 g/dL (3.4-5.0); Calcium 8.6 mg/dL (8.5-10.1); Potassium 4.8 mmol/L (3.5-5.1)
[2019-02-15 05:59] LABS: Bilirubin, Total 0.3 mg/dL (0.2-1.0); Total Protein 5.5 g/dL (6.4-8.2)
[2019-02-15 07:11] LABS: BUN/Creatinine Ratio 14.5
--- NOTE | 2019-02-15 08:30 | NUR ---
PT RESTING IN BED, NO DISTRESS NOTED, SITTER AT BEDSIDE. PT REPORTS NO PAIN AT THIS TIME. PT ENCOURAGED TO USE CALL LIGHT PRN, WILL CONTINUE TO MONITOR.
[2019-02-15 08:57] VITALS: BP 139/61
[2019-02-15] MEDS: NITROFURANTOIN (MONO) 100 mg CAP PO SCH ×2 (09:50→22:15)
[2019-02-15] MEDS: DULoxetine HCL 30 MG CAP PO SCH (09:51)
[2019-02-15] MEDS: MUPIROCIN 2% OINT 15gm or 22gm TOP SCH ×2 (09:53→22:16)
--- NOTE | 2019-02-15 12:06 | NUR ---
PT REQUESTING ANXIETY MEDICATION AND SLEEP MEDICATION PRN.
--- NOTE | 2019-02-15 12:10 | NUR ---
CALLED DR QUISPE, NEW ORDERS FOR XANAX PRN FOR ANXIETY, REPORTS HE DOES NOT WISH TO PRESCRIBE SLEEPING MEDICATION AT THIS TIME.
[2019-02-15] MEDS: ALPRAZolam 0.5 MG TAB PO PRN (12:30)
[2019-02-15 13:00] VITALS: BP 127/56
[2019-02-15] MEDS ORDERED: ALPRAZolam 0.5 MG TAB PO SCH (14:00)
--- NOTE | 2019-02-15 14:15 | NUR ---
SMITA MACIEL CALLED BACK, SHE REPORTS [facility] IS STILL ,WORKING ON PLACEMENT. WILL CONTINUE TO9 MONITOR.
--- NOTE | 2019-02-15 14:30 | NUR ---
SPOKE WITH SOFIA FROM [facility]. GAVE BRIEF REPORT TO SOFIA ON PT STATUS. SOFIA REPORTS THEY ARE UNABLE TO TAKE PATIENT AT THIS TIME DUE TO UNRESOLVED DIARRHEA AND PT IS NOT ABLE TO WALK OR PERFORM ADL'S. SOFIA REPORTS ONCE PATIENT IS CLEAR OF THESE, TO CALL AND A BED MAY BE AVAILABLE.
--- NOTE | 2019-02-15 15:28 | NUR ---
CALLED AND LEFT MESSAGE FOR SMITA NOTIFYING HER CHARTER [facility] WILL NOT TAKE PATIENT AT THIS TIME.
--- NOTE | 2019-02-15 16:13 | NUR ---
SPOKE WITH DR MACHUCA. REPORTED TO MD GIANG [facility] WILL NOT RECEIVE PATIENT AT THIS TIME DUE TO DIARRHEA AND PT UNABLE TO PERFORM ADL'S, NEW ORDERS FOR NEW MRSA SWAB, AND MED FOR DIARRHEA. Signed: 02/15/19 at 1615 by EBENEZER URIOSTEGUI RN
--- NOTE | 2019-02-15 16:42 | NUR ---
MRSA SWAB SENT TO LAB.
[2019-02-15 17:00] VITALS: BP 154/82
--- NOTE | 2019-02-15 19:15 | NUR ---
Opening Shift Note Report received from day shift RN. Assumed care of patient. Patient resting in bed and alert x4. No S/S of distress/SOB noted and denies pain at this time. Sitter at bedside for safety. Instructed on POC and to call for assist PRN. Call light left within reach. Will continue to monitor for changes Q1hr and PRN.
[2019-02-15 22:00] VITALS: BP 113/57
[2019-02-15] MEDS: DIPHENOXYLATE W/ATROPINE 2.5 MG TAB PO SCH (22:15)
[2019-02-16 05:00] VITALS: BP 108/52
[2019-02-16] MEDS: DIPHENOXYLATE W/ATROPINE 2.5 MG TAB PO SCH ×3 (05:53→21:25)
[2019-02-16 06:06] LABS: Basophils # (auto) 0 uL; Basophils % (auto) 0.8 % (0.0-2.0); Eosinophils # (auto) 0 uL; Hematocrit 27.9 % (36.0-46.0); Hemoglobin 9.1 g/dL (12.2-16.2); Lymphocytes # (auto) 1.6 uL; Mean Corpuscular Hgb Conc. 32.5 g/dL (32.0-36.0)
[2019-02-16 06:08] LABS: Eosinophils % (auto) 0.4 % (0.0-7.0); Lymphocytes % (auto) 31.8 % (10.0-50.0); Mean Corpuscular Hemoglobin 26.3 pg (28.0-32.0); Monocytes # (auto) 0.4 uL; Monocytes % (auto) 7.7 % (0.0-12.0); Neutrophils % (auto) 59.3 % (37.0-80.0); Platelet Count (auto) 384 10^3/uL (140-450); Red Blood Cells 3.45 10^6/uL (4.0-5.20); Red Cell Distribution Width 18.4 % (11.8-14.3)
[2019-02-16 06:21] LABS: Potassium 3.5 mmol/L (3.5-5.1)
[2019-02-16 06:38] LABS: Albumin 2.3 g/dL (3.4-5.0); BUN/Creatinine Ratio 18.6; Bilirubin, Total 0.2 mg/dL (0.2-1.0); Calcium 8.2 mg/dL (8.5-10.1); Total Protein 5.1 g/dL (6.4-8.2)
--- NOTE | 2019-02-16 08:03 | NUR ---
PT RESTING IN BED, NO DISTRESS NOTED. PT REPORTS 4/10 PAIN GENERALIZED IN BODY, BUT WANTS NO PAIN MEDICATION AT THIS TIME. PT EATING BREAKFAST AND REPORTS HER DIARRHEA IS RESOLVING. SITTER AT BEDSIDE, PT ENCOURAGED TO USE CALL LIGHT PRN, WILL CONTINUE TO MONITOR.
[2019-02-16] MEDS: ALPRAZolam 0.5 MG TAB PO PRN ×2 (08:10→16:09)
--- NOTE | 2019-02-16 08:50 | NUR ---
SPOKE WITH DR MACHUCA. REQUESTS MRSA RESULTS AND NEW ORDERS FOR PHYSICAL THERAPY. CALLED LAB, NO ANSWER, PHONE JUST KEPT RINGING, WILL CALL AGAIN FOR RESULTS.
--- NOTE | 2019-02-16 08:55 | NUR ---
CALLED LAB AGAIN, NO ANSWER, WILL RETRY.
[2019-02-16 09:00] VITALS: BP 90/45
--- NOTE | 2019-02-16 09:04 | NUR ---
CALLED LAB AGAIN, NO ANSWER.
--- NOTE | 2019-02-16 09:06 | NUR ---
SOFTWARE ENGINEER ADVISOR REPORTS PT BLOOD PRESSURE IS 90/45, HR 96. CALLED AND LEFT MESSAGE FOR DR MACHUCA. AWAITING ORDERS. PT HAS AGREED TO HAVE AN IV INSERTED. PT RESTING IN BED AND REPORTS NO DISTRESS AT THIS TIME, PT REPORTS SHE IS, "JUST SLEEPY."
[2019-02-16] MEDS ORDERED: SODIUM CHLORIDE 0.9% 500 ML IV ONE (09:30)
--- NOTE | 2019-02-16 09:30 | NUR ---
DR MACHUCA CALLED BACK, NEW ORDERS FOR 500 ML BOLUS.
--- NOTE | 2019-02-16 09:41 | NUR ---
CALLED LAB AND REQUESTED MRSA RESULTS LORY. LAB REPORTS IT TAKES 24 HOURS, BUT SHOULD RECEIVE RESULTS TODAY. NOTIFIED.
[2019-02-16] MEDS: NITROFURANTOIN (MONO) 100 mg CAP PO SCH ×2 (10:51→21:24)
[2019-02-16] MEDS: DULoxetine HCL 30 MG CAP PO SCH (10:52)
[2019-02-16] MEDS: MUPIROCIN 2% OINT 15gm or 22gm TOP SCH ×2 (10:53→21:25)
--- NOTE | 2019-02-16 10:57 | NUR ---
Attempted PT eval but pt with low BP and receiving fluids. Will attempt again later
--- NOTE | 2019-02-16 12:30 | NUR ---
AFTER 500 ML BOLUS, PT BP 121/55, HR 95.
[2019-02-16 13:30] VITALS: BP 121/55
--- NOTE | 2019-02-16 14:22 | NUR ---
PHYSICAL THERAPY CAME TO PATIENT ROOM TO WORK WITH PATIENT.
--- NOTE | 2019-02-16 14:25 | NUR ---
Nutrition Follow-up Notes Wt.: 49.3 kg today. Pt's in isolation room, asleep no immediate family member at bedside except for sitter when rounded this morning. Pt's no signs of distress noted earlier, currently on Soft diet with fair PO intake aeb 70% ave. consumed meals (x5) in last 2 days. Est. Needs IBW [id number] kcal (25-30 kcal/kgBW), 52-67 gms pro (1.0-1.3 gms/kgBW r/t severe hypoalb). Will continue to monitor pertinent labs and reassess nutrient need prn Labs: Pertinent labs wnl except for Ca 8.2 L, Tpro 5.1 L, Alb 2.3 L. Skin: Andres 16, mod risk , pt's posterior sacrum blanchable redness per finish mill operator GI: Pt had 1 BM this morning per finish mill operator. PES: Partially resolved: Increased nutrient needs r/t current medical condition aeb pt`s NPO with severe hypoalb Altered nutrition related lab values r/t acute/chronic medical condition aeb hyperglycemia, hypocalcemia, severe hypoalb Will continue to monitor PO intake, pertinent labs, skin status and weight trends. F/u in 3 to 5 days. Additional Recommendation: 1.) Consider Ensure Enlive 1 carton TID. 2.) If Albumin level continues trending down, consider Prostat 1 packet BID . 3.) Continue close supervision and feeding assistance prn during meals. 4.) Refer to RD for further nutrition educ. and weight monitoring upon discharge. 5.) Continue current plan of care.
--- NOTE | 2019-02-16 14:25 | NUR ---
NEW MRSA CAME BACK, PT NOW NEGATIVE FOR MRSA. CALLED AND LEFT MESSAGE NOTIFYING .
[2019-02-16 17:00] VITALS: BP 129/55
--- NOTE | 2019-02-16 18:10 | NUR ---
PT MRSA SWAB IS NEGATIVE. SPOKE TO KARYNA RN, KARYNA REPORTS PT HAS TO HAVE 2 NEGATIVE SWABS TO BE TRANSFERRED OUT OF ROOM. UNABLE TO FIND THE NUMBER FOR [facility] AT THIS TIME TO NOTIFY BRENNAN PT NEGATIVE, WILL CONTINUE LOOKING.
--- NOTE | 2019-02-16 18:16 | NUR ---
CALLED [employer] AT [phone], NUMBER IN CHART, RECEIVED MESSAGE, "YOUR CALL CAN NOT GO THROUGH." DID NOT SEE [employer] Communications[employer]AGE NUMBER IN SS NOTE. WILL PASS TO PARA MACHINE OPERATOR.
[2019-02-16 20:26] VITALS: BP 116/54
[2019-02-16] MEDS: MORPHINE SULF 15mg ER tab PO SCH (21:25)
[2019-02-17] MEDS: ALPRAZolam 0.5 MG TAB PO PRN (00:50)
[2019-02-17 04:02] VITALS: BP 124/62
[2019-02-17 06:10] LABS: Basophils # (auto) 0.1 uL; Eosinophils # (auto) 0 uL; Eosinophils % (auto) 0.5 % (0.0-7.0); Hematocrit 25.7 % (36.0-46.0); Hemoglobin 8.3 g/dL (12.2-16.2); Lymphocytes # (auto) 1.9 uL; Lymphocytes % (auto) 38.3 % (10.0-50.0); Mean Corpuscular Hemoglobin 26.4 pg (28.0-32.0); Mean Corpuscular Hgb Conc. 32.4 g/dL (32.0-36.0); Mean Corpuscular Volume 81.5 fL (80.0-100.0); Monocytes # (auto) 0.4 uL; Monocytes % (auto) 8.5 % (0.0-12.0); Neutrophils # (auto) 2.6 uL; Neutrophils % (auto) 51.7 % (37.0-80.0); Nucleated Red Blood Cells % 0.1 %; Platelet Count (auto) 389 10^3/uL (140-450); Red Blood Cells 3.16 10^6/uL (4.0-5.20); Red Cell Distribution Width 18.8 % (11.8-14.3)
[2019-02-17 06:41] LABS: Potassium 3.7 mmol/L (3.5-5.1)
[2019-02-17 06:51] LABS: Albumin 2.3 g/dL (3.4-5.0); BUN/Creatinine Ratio 21.2; Bilirubin, Total 0.3 mg/dL (0.2-1.0); Calcium 8.5 mg/dL (8.5-10.1)
[2019-02-17] MEDS: DIPHENOXYLATE W/ATROPINE 2.5 MG TAB PO SCH ×3 (06:53→21:57)
[2019-02-17 08:55] VITALS: BP 115/54
--- NOTE | 2019-02-17 09:35 | NUR ---
RECEIVED CALL FROM [facility]. CALL BACK NUMBER [phone]. UPDATED ON POC
[2019-02-17] MEDS: DULoxetine HCL 30 MG CAP PO SCH (10:38)
[2019-02-17] MEDS: LORazepam 0.5 MG TAB PO PRN ×2 (10:39→22:03)
[2019-02-17] MEDS: NITROFURANTOIN (MONO) 100 mg CAP PO SCH ×2 (10:39→21:58)
[2019-02-17] MEDS: MUPIROCIN 2% OINT 15gm or 22gm TOP SCH ×2 (10:40→22:03)
[2019-02-17] MEDS: MORPHINE SULF 15mg ER tab PO SCH ×2 (10:41→21:58)
--- NOTE | 2019-02-17 12:35 | NUR ---
PATIENT HAD 4 WATERY STOOLS SINCE 0700. PATIENT ALERT AND ORIENTED AND DENIES ANY DIZZINESS. WILL CONTINUE TO MONITOR
[2019-02-17 12:57] VITALS: BP 112/54
[2019-02-17] MEDS: ACETAMINOPHEN 650 mg PER 20 mL UD PO PRN (17:12)
--- NOTE | 2019-02-17 19:10 | NUR ---
OPENING NOTE- NOC SHIFT PATIENT IS SITTING UP IN BED, DAUGHTER AND GRANDSON ARE AT BEDSIDE. FAMILY IS AWARE OF ISOLATION STATUS OF PATIENT. GOOD FAMILY DYNAMICS NOTED. PATIENT IS ALERT AND ORIENTED X4 AND ANSWERS IN COMPLETE SENTENCES. PATIENT DENIES ANY CURRENT SUICIDAL THOUGHTS. DISCUSSED POC WITH PATIENT AND INSTRUCTED PATIENT TO CALL PRN; PATIENT VERBALIZES UNDERSTANDING. NURSE VOCATIONAL SERVICES SPECIALIST IS AT BEDSIDE FOR SAFETY PRECAUTIONS. PATIENT DENIES ANY PAIN AT THIS TIME. BEDSIDE TABLE WITH PERSONAL BELONGINGS WITHIN REACH. CALL LIGHT WITHIN REACH. NO S/SX OF DISTRESS, SOB OR PAIN. WILL CONTINUE TO MONITOR Q1H AND PRN.
--- NOTE | 2019-02-17 20:43 | NUR ---
DIARRHEA SMALL TO MODERATE AMOUNT AT THIS TIME. PATIENT UP TO THE BEDSIDE COMMODE WITH STANDBY ASSIST. TOLERATES ACTIVITY WELL.
[2019-02-17 21:00] VITALS: BP 124/58
--- NOTE | 2019-02-17 21:30 | NUR ---
POSITIVE MRSA CALL FROM [employer] STATED PATIENT IS POSITIVE FOR MRSA NARES.
--- NOTE | 2019-02-17 21:40 | NUR ---
URINE CULTURE SENT TO LAB
[2019-02-17 22:22] LABS: Urine Bacteria FEW /hpf (None Seen); Urine Blood Negative /uL (Negative); Urine Budding Yeast OCCASIONAL /hpf (None Seen); Urine Mucus FEW (None Seen); Urine Specific Gravity 1.013 (1.001-1.035); Urine WBC 14 /hpf (0 - 5)
[2019-02-17] MEDS: CHOLESTYRAMINE 4 GM POWDER PO SCH (23:18)
[2019-02-18 05:00] VITALS: BP 136/70
[2019-02-18] MEDS: DIPHENOXYLATE W/ATROPINE 2.5 MG TAB PO SCH ×4 (06:37→21:40)
[2019-02-18 07:05] LABS: Eosinophils # (auto) 0 uL; Hemoglobin 9.2 g/dL (12.2-16.2); Monocytes # (auto) 0.4 uL; Nucleated Red Blood Cells % 0.1 %; White Blood Cell 5.2 10^3/uL (4.4-10.8)
[2019-02-18 07:07] LABS: Basophils # (auto) 0.1 uL; Basophils % (auto) 1.3 % (0.0-2.0); Eosinophils % (auto) 0.7 % (0.0-7.0); Hematocrit 28.4 % (36.0-46.0); Lymphocytes # (auto) 2.6 uL; Lymphocytes % (auto) 50.2 % (10.0-50.0); Mean Corpuscular Hemoglobin 26.7 pg (28.0-32.0); Mean Corpuscular Hgb Conc. 32.4 g/dL (32.0-36.0); Mean Corpuscular Volume 82.5 fL (80.0-100.0); Monocytes % (auto) 8.3 % (0.0-12.0); Neutrophils # (auto) 2.1 uL; Neutrophils % (auto) 39.5 % (37.0-80.0); Platelet Count (auto) 436 10^3/uL (140-450); Red Blood Cells 3.44 10^6/uL (4.0-5.20); Red Cell Distribution Width 18.6 % (11.8-14.3)
--- NOTE | 2019-02-18 07:17 | NUR ---
ENDORSED PATIENT CARE TO DAY SHIFT MIGUELINA COFFMAN NO S/SX OF DISTRESS OR SOB. MIGUELINA COFFMAN IS AWARE THAT PATIENT IS POSITIVE FOR MRSA NARES NURSE AITCHBONE BREAKER AT BEDSIDE FOR SAFETY PRECAUTIONS.
[2019-02-18 07:25] LABS: Albumin 2.6 g/dL (3.4-5.0); Calcium 8.4 mg/dL (8.5-10.1); Potassium 3.5 mmol/L (3.5-5.1)
[2019-02-18 07:29] LABS: Bilirubin, Total 0.4 mg/dL (0.2-1.0); Total Protein 5.6 g/dL (6.4-8.2)
--- NOTE | 2019-02-18 08:59 | NUR ---
Transfer Primary RN to fax me renewed [phone] and I will fax to [facility]
[2019-02-18 09:00] VITALS: BP 115/52
--- NOTE | 2019-02-18 10:10 | NUR ---
Faxed renewed [phone] to [employer]
[2019-02-18] MEDS: DULoxetine HCL 30 MG CAP PO SCH (10:21)
[2019-02-18] MEDS: NITROFURANTOIN (MONO) 100 mg CAP PO SCH ×2 (10:21→21:40)
[2019-02-18] MEDS: MUPIROCIN 2% OINT 15gm or 22gm TOP SCH ×2 (10:23→21:40)
[2019-02-18] MEDS: MORPHINE SULF 15mg ER tab PO SCH ×2 (10:23→21:40)
[2019-02-18] MEDS: LORazepam 0.5 MG TAB PO PRN ×2 (10:34→18:50)
[2019-02-18] MEDS: CHOLESTYRAMINE 4 GM POWDER PO SCH ×2 (11:30→23:26)
[2019-02-18] MEDS ORDERED: CHL4PW PO (11:34)
[2019-02-18] MEDS ORDERED: [UNRECOGNIZED DRUG - CODE] GT (11:34)
[2019-02-18 13:00] VITALS: BP 151/51
[2019-02-18 17:00] VITALS: BP 130/61
[2019-02-18] MEDS: ACETAMINOPHEN 650 mg PER 20 mL UD PO PRN (17:09)
--- NOTE | 2019-02-18 18:43 | NUR ---
RECEIVED CALL FROM [facility]. THEY ARE NOT WILLING TO RECEIVE PATIENT UNTIL DIARRHEA IS RESOLVED... PATIENT HAD 6 LOOSE STOOLS ON MY SHIFT
--- NOTE | 2019-02-18 20:50 | NUR ---
MRSA ISOLATION PATIENT ON ISOLATION. PATIENT TESTS ARE POSITIVE FOR MRSA.
[2019-02-18 22:00] VITALS: BP 135/55
[2019-02-18] MEDS ORDERED: PSYLLIUM GT SCH (22:00)
--- NOTE | 2019-02-18 22:25 | NUR ---
PATIENT CONTINUES WITH FREQUENT BOWEL MOVEMENTS. STOOL NOT FORMED. PATIENT STILL PRESENTING WITH DIARRHEA.
[2019-02-19] MEDS: ACETAMINOPHEN 650 mg PER 20 mL UD PO PRN ×2 (03:05→08:11)
--- NOTE | 2019-02-19 03:05 | NUR ---
PATIENT TRANSFERRED TO 294A TRANSFER WAS REQUESTED TO AND APPROVED BY CHARGE NURSE JAI COFFMAN. ROOM 285A THERMOSTAT NOT WORKING. NO WARM WATER IN RESTROOM. ALL PERSONAL BELONGINGS WITH PATIENT.
[2019-02-19 05:00] VITALS: BP 125/63
[2019-02-19] MEDS: DIPHENOXYLATE W/ATROPINE 2.5 MG TAB PO SCH ×4 (06:32→22:19)
--- NOTE | 2019-02-19 07:13 | NUR ---
CLOSING NOTE- NOC SHIFT ENDORSED PATIENT CARE TO DAY SHIFT NURSE MIGUELINA COFFMAN NO S/SX OF DISTRESS, SOB OR PAIN. NURSE FOOD SERVICE TEAM MEMBER STAY WITH PATIENT AT BEDSIDE FOR SAFETY PRECAUTIONS.
--- NOTE | 2019-02-19 07:17 | NUR ---
PATIENT HAD 11 LOOSE STOOLS ON RECORDS MANAGEMENT ENGINEER REPORTED DURING SHIFT CHANGE
[2019-02-19 07:38] LABS: Basophils # (auto) 0 uL; Eosinophils # (auto) 0 uL; Lymphocytes # (auto) 1.9 uL; Monocytes # (auto) 0.3 uL; Neutrophils # (auto) 2.4 uL; White Blood Cell 4.7 10^3/uL (4.4-10.8)
[2019-02-19 07:40] LABS: Basophils % (auto) 0.8 % (0.0-2.0); Eosinophils % (auto) 0.4 % (0.0-7.0); Hematocrit 24.1 % (36.0-46.0); Hemoglobin 7.9 g/dL (12.2-16.2); Lymphocytes % (auto) 40.2 % (10.0-50.0); Mean Corpuscular Hemoglobin 26.8 pg (28.0-32.0); Mean Corpuscular Volume 81.4 fL (80.0-100.0); Monocytes % (auto) 7.2 % (0.0-12.0); Neutrophils % (auto) 51.4 % (37.0-80.0); Nucleated Red Blood Cells % 0.1 %; Platelet Count (auto) 387 10^3/uL (140-450); Red Blood Cells 2.96 10^6/uL (4.0-5.20); Red Cell Distribution Width 18.1 % (11.8-14.3)
[2019-02-19 07:57] LABS: Albumin 2.3 g/dL (3.4-5.0); Calcium 8.3 mg/dL (8.5-10.1); Potassium 3.2 mmol/L (3.5-5.1)
[2019-02-19 08:00] LABS: BUN/Creatinine Ratio 20.4; Bilirubin, Total 0.3 mg/dL (0.2-1.0); Total Protein 4.9 g/dL (6.4-8.2)
[2019-02-19] MEDS: LORazepam 0.5 MG TAB PO PRN ×2 (08:11→18:52)
[2019-02-19 08:56] VITALS: BP 119/61
[2019-02-19] MEDS: MORPHINE SULF 15mg ER tab PO SCH ×2 (09:49→22:19)
[2019-02-19] MEDS: DULoxetine HCL 30 MG CAP PO SCH (09:49)
[2019-02-19] MEDS: NITROFURANTOIN (MONO) 100 mg CAP PO SCH ×2 (09:50→22:19)
[2019-02-19] MEDS: MUPIROCIN 2% OINT 15gm or 22gm TOP SCH ×2 (09:54→22:19)
[2019-02-19] MEDS: CHOLESTYRAMINE 4 GM POWDER PO SCH (10:30)
--- NOTE | 2019-02-19 11:15 | NUR ---
Nutrition Follow-up Notes Wt.: 49.5 kg today. Pt's asleep no immediate family member at bedside except for sitter when rounded this morning. Pt's no signs of distress noted earlier, currently on Soft diet with inadequte PO of 50% x 5 per RN doc Est. Needs IBW [id number] kcal (25-30 kcal/kgBW), 52-67 gms pro (1.0-1.3 gms/kgBW r/t severe hypoalb). Will continue to monitor pertinent labs and reassess nutrient need prn Labs: CA 8.3 L, ALB 2.3 L. Skin: Andres 20, low risk , pt's posterior sacrum blanchable redness per chemical dependency attendant GI: Pt had 1 BM yesterday per chemical dependency attendant. PES: Partially resolved: Increased nutrient needs r/t current medical condition aeb pt`s NPO with severe hypoalb Altered nutrition related lab values r/t acute/chronic medical condition aeb hyperglycemia, hypocalcemia, severe hypoalb Will continue to monitor PO intake, pertinent labs, skin status and weight trends. F/u in 3 to 5 days. Additional Recommendation: 1.) Consider Ensure Enlive 1 carton TID. 2.) If Albumin level continues trending down, consider Prostat 1 packet BID . 3.) Continue close supervision and feeding assistance prn during meals. 4.) Refer to RD for further nutrition educ. and weight monitoring upon discharge. 5.) Continue current plan of care.
[2019-02-19 13:00] VITALS: BP 129/71
[2019-02-19] MEDS: predniSONE 20 MG TAB PO SCH (16:22)
[2019-02-19 17:00] VITALS: BP 142/70
[2019-02-19] MEDS ORDERED: CHOLESTYRAMINE 4 GM POWDER PO SCH (18:00)
--- NOTE | 2019-02-19 19:20 | NUR ---
OPENING NOTE- NOC SHIFT PATIENT IS ALERT AND ORIENTED X4, ANSWERS IN COMPLETE SENTENCES AND MAKES APPROPRIATE EYE CONTACT. PATIENT IS SITTING UP IN BED, BED IS LOCKED IN LOWEST POSITION, BED RAILS UP X2 AND HEAD OF BED IS UP >30 DEGREES FOR SAFETY PRECAUTIONS. SITTER AT BEDSIDE. PATIENT STATES THAT SHE IS FEELING MUCH BETTER AND THAT SHE HAS HAD LESS BOWEL MOVEMENTS TODAY AND THAT SHE FEELS RESTED. DISCUSSED POC WITH PATIENT; PATIENT VERBALIZED UNDERSTANDING. WILL CONTINUE TO MONITOR Q1H AND PRN. NO S/SX OF DISTRESS, SOB OR PAIN AT THIS TIME.
--- NOTE | 2019-02-19 19:25 | NUR ---
5150 HOLD RENEWED 02/19 AT 1200 DURING DAY SHIFT. FORM IS SIGNED AND CHARTED IN HARD CHART.
[2019-02-19 21:34] VITALS: BP 132/70
[2019-02-20] MEDS: CHOLESTYRAMINE 4 GM POWDER PO SCH ×5 (00:52→23:23)
[2019-02-20] MEDS: LORazepam 0.5 MG TAB PO PRN ×3 (04:40→20:44)
[2019-02-20 05:59] LABS: Basophils # (auto) 0 uL; Eosinophils # (auto) 0 uL; Mean Corpuscular Hemoglobin 26.6 pg (28.0-32.0); Mean Corpuscular Hgb Conc. 32.8 g/dL (32.0-36.0); Mean Corpuscular Volume 81.2 fL (80.0-100.0); Monocytes # (auto) 0.3 uL; White Blood Cell 4.4 10^3/uL (4.4-10.8)
[2019-02-20 06:03] LABS: Basophils % (auto) 0.8 % (0.0-2.0); Hematocrit 25.2 % (36.0-46.0); Hemoglobin 8.3 g/dL (12.2-16.2); Lymphocytes # (auto) 2.2 uL; Lymphocytes % (auto) 51.1 % (10.0-50.0); Monocytes % (auto) 6.2 % (0.0-12.0); Neutrophils # (auto) 1.8 uL; Neutrophils % (auto) 41.9 % (37.0-80.0); Nucleated Red Blood Cells % 0.1 %; Platelet Count (auto) 446 10^3/uL (140-450); Red Blood Cells 3.11 10^6/uL (4.0-5.20); Red Cell Distribution Width 18.2 % (11.8-14.3)
[2019-02-20 06:31] LABS: Albumin 2.6 g/dL (3.4-5.0); BUN/Creatinine Ratio 25.5; Calcium 8.7 mg/dL (8.5-10.1); Potassium 3.8 mmol/L (3.5-5.1)
[2019-02-20 06:36] LABS: Bilirubin, Total 0.3 mg/dL (0.2-1.0); Total Protein 5.5 g/dL (6.4-8.2)
[2019-02-20] MEDS: DIPHENOXYLATE W/ATROPINE 2.5 MG TAB PO SCH ×4 (06:38→21:41)
[2019-02-20 09:00] VITALS: BP 148/58
[2019-02-20] MEDS: NITROFURANTOIN (MONO) 100 mg CAP PO SCH (09:09)
[2019-02-20] MEDS: VENLAFAXINE HCL 37.5mg XR cap PO SCH (09:09)
[2019-02-20] MEDS: predniSONE 20 MG TAB PO SCH (09:10)
[2019-02-20] MEDS: MORPHINE SULF 15mg ER tab PO SCH ×2 (09:10→21:40)
[2019-02-20] MEDS: DULoxetine HCL 30 MG CAP PO SCH (09:11)
[2019-02-20] MEDS: MUPIROCIN 2% OINT 15gm or 22gm TOP SCH ×2 (09:11→21:43)
[2019-02-20] MEDS ORDERED: VENL37.572 PO (10:08)
[2019-02-20] MEDS ORDERED: MUPI2OIN2 TOP (10:08)
[2019-02-20] MEDS ORDERED: CHL4PW PO (10:08)
[2019-02-20] MEDS ORDERED: BUDE9TAB2 PO (10:08)
[2019-02-20] MEDS ORDERED: DULO30CA84 PO (10:08)
[2019-02-20] MEDS ORDERED: FAM20T PO (10:08)
--- NOTE | 2019-02-20 16:38 | NUR ---
[phone] I faxed tele-psych consult, current [phone] along with clinical information to [facility] [phone], I also spoke with Anne from [facility]-she said they will send the packet out to psych facilities and search for a bed for this member.
[2019-02-20 17:00] VITALS: BP 146/70
--- NOTE | 2019-02-20 19:00 | NUR ---
Report received from PB COFFMAN. POC reviewed.
[2019-02-20 21:30] VITALS: BP 122/64
--- NOTE | 2019-02-21 | NUR ---
patient resting with eyes closed. call light within reach.
--- NOTE | 2019-02-21 04:35 | NUR ---
Patient resting comfortably with eyes closed. call light within reach.
[2019-02-21 05:00] VITALS: BP 146/78
[2019-02-21] MEDS: DIPHENOXYLATE W/ATROPINE 2.5 MG TAB PO SCH ×2 (05:07→09:48)
[2019-02-21] MEDS: CHOLESTYRAMINE 4 GM POWDER PO SCH ×2 (05:47→11:39)
[2019-02-21 05:50] LABS: Albumin 2.6 g/dL (3.4-5.0); Calcium 8.4 mg/dL (8.5-10.1); Potassium 3.4 mmol/L (3.5-5.1)
[2019-02-21 05:52] LABS: BUN/Creatinine Ratio 21.2
[2019-02-21 05:55] LABS: Bilirubin, Total 0.3 mg/dL (0.2-1.0); Total Protein 5.3 g/dL (6.4-8.2)
--- NOTE | 2019-02-21 06:59 | NUR ---
Report given to PB COFFMAN. POC reviewed.
[2019-02-21 08:03] VITALS: BP 159/76
[2019-02-21] MEDS: DULoxetine HCL 30 MG CAP PO SCH (09:48)
[2019-02-21] MEDS: predniSONE 20 MG TAB PO SCH (09:49)
[2019-02-21] MEDS: MORPHINE SULF 15mg ER tab PO SCH (09:49)
[2019-02-21] MEDS: VENLAFAXINE HCL 37.5mg XR cap PO SCH (09:49)
[2019-02-21] MEDS: MUPIROCIN 2% OINT 15gm or 22gm TOP SCH (09:50)
[2019-02-21] MEDS: LORazepam 0.5 MG TAB PO PRN (10:29)
--- NOTE | 2019-02-21 10:43 | NUR ---
I spoke with Edy at [facility] [phone], he said they are reaching out to [facility], [facility], [facility] and [facility], [facility] and [facility]. He said they are contracted with [facility] and [facility]. They are not contracted with [facility] or [facility], but would be willing to authorize admission if these facilities were willing to accept.
[2019-02-21] MEDS ORDERED: Ensure Enlive Strawberry 8oz Bottle PO SCH (12:00)
[2019-02-21 12:41] VITALS: BP 136/78
--- NOTE | 2019-02-21 13:39 | NUR ---
I received a call from Mihir at [facility] letting me know that they are accepting this patient. She will go to room 29B, Dr. Tran accepting-phone number to facility is [phone]-I already provided clinical report to Mihir-they are ready for the patient any time. I spoke with Herita Foxer Linda-she provided me with [facility] authorization number [id number].
--- NOTE | 2019-02-21 14:02 | NUR ---
D/C Planning Contact [facility] Ph:( [phone]) spoke to Anastasiya. Advised Anastasiya Pt will be going to [place] [phone] to room [address] accepting MD Dr. Tran and to arrange transportation at 16:00 via gurney with oxygen. Informed Anastasiya from [facility] patient is a psych patient. Informed MEGHNA Calvert. Addendum: 02/21/19 at 1406 by DEDE EVANS SS Amended: Links added.
--- NOTE | 2019-02-21 16:15 | NUR ---
PATIENT DISCHARGED TO [facility] IN [place], [place]. ALL IV ACCESS DISCONTINUED. ALL DISCHARGE PAPERWORK SIGNED. ALL DISCHARGE INSTRUCTIONS GIVEN
== END 2019-02-21 16:00 | DRG 871 ==
LOC: ER 10:27 → EDBD 10:27 → TELE 10:28 → ICU WEST 19:27 → TELE-WESTW 02-10 16:58 → WEST WING 02-13 00:11 → TELE-WESTW 02-14 19:50 → WEST WING 02-16 20:11
PROVIDERS: ADMIT Internal Medicine; ATTEND Internal Medicine
PROC: 30233N1 Transfusion of Nonautologous Red Blood Cells into Peripheral Vein, Percutaneous Approach (ICD-10-PCS; 2019-02-09)
PROC: 0DBH8ZX Excision of Cecum, Via Natural or Artificial Opening Endoscopic, Diagnostic (ICD-10-PCS; 2019-02-11)
PROC: 0DBK8ZX Excision of Ascending Colon, Via Natural or Artificial Opening Endoscopic, Diagnostic (ICD-10-PCS; principal; 2019-02-11 13:31)
DX: A41.9 Sepsis, unspecified organism (principal); G93.41 Metabolic encephalopathy; I21.4 Non-ST elevation (NSTEMI) myocardial infarction; K57.31 Diverticulosis of large intestine without perforation or abscess with bleeding; E44.0 Moderate protein-calorie malnutrition; N17.9 Acute kidney failure, unspecified; D62 Acute posthemorrhagic anemia; K55.9 Vascular disorder of intestine, unspecified; Z68.1 Body mass index [BMI] 19.9 or less, adult; R45.851 Suicidal ideations; F11.20 Opioid dependence, uncomplicated; E87.6 Hypokalemia; I10 Essential (primary) hypertension; K52.831 Collagenous colitis; E78.5 Hyperlipidemia, unspecified; E03.9 Hypothyroidism, unspecified; K64.8 Other hemorrhoids; K21.9 Gastro-esophageal reflux disease without esophagitis; F41.9 Anxiety disorder, unspecified; R54 Age-related physical debility; R62.7 Adult failure to thrive; F32.9 Major depressive disorder, single episode, unspecified; F17.210 Nicotine dependence, cigarettes, uncomplicated; N30.90 Cystitis, unspecified without hematuria; Z79.899 Other long term (current) drug therapy; Z85.41 Personal history of malignant neoplasm of cervix uteri; Z87.11 Personal history of peptic ulcer disease; Z90.710 Acquired absence of both cervix and uterus; Z98.82 Breast implant status
CPT/HCPCS: 36415; 36430; 36556; 36600; 45380; 51702; 70450; 71045; 71250; 74176; 80053; 80202; 81001; 82805; 82962; 83605; 83880; 84484; 85025; 85610; 85730; 86850; 86900; 86901; 86920; 87040; 87077; 87081; 87086; 87186; 87493; 93005; 93306; 96365; 97110; 97116; 97163; 97530; 99291; C9113; G0378; J1815; J2250; J2543; J3480; J3490; J7060

== ENCOUNTER 2020-09-01 20:17 | Emergency (ER) | payer OTHER ==
[~2020-09-01] VITALS: Ht 167.6 cm; Wt 65.8 kg
[2020-09-01 20:17] VITALS: BP 146/54
[~2020-09-01 20:17] MED LIST changes: +BUDE9TAB2 PO; +CHL4PW PO; +DULO30CA84 PO; +FAMO20TA10 PO; -METO25TA62 PO; +METO25TA93 PO; +MIRT-66 PO; -MIRT30TA PO; +MULT-1018 PO; -MULTTAB61 PO; +MUPI2OIN2 TOP; +VENL37.572 PO
[2020-09-02] MEDS ORDERED: ONDANSETRON ODT 4 MG TAB PO ONE (00:30)
[2020-09-02] MEDS ORDERED: ACETAMINOPHEN/CODEINE#3 (300/30mg) TAB PO ONE (00:30)
[2020-09-02] MEDS ORDERED: BACITRACIN TOP OINT 1 UD PKG TOP ONE (02:00)
== END 2020-09-02 02:18 | disposition home or self-care (01) ==
LOC: ER 20:18
DX: S51.812A Laceration without foreign body of left forearm, initial encounter (principal); S51.811A Laceration without foreign body of right forearm, initial encounter; S61.217A Laceration without foreign body of left little finger without damage to nail, initial encounter; S51.852A Open bite of left forearm, initial encounter; S51.851A Open bite of right forearm, initial encounter; I10 Essential (primary) hypertension; K21.9 Gastro-esophageal reflux disease without esophagitis; E78.5 Hyperlipidemia, unspecified; Z90.49 Acquired absence of other specified parts of digestive tract; Z90.710 Acquired absence of both cervix and uterus; Z90.89 Acquired absence of other organs; Z79.899 Other long term (current) drug therapy; W54.0XXA Bitten by dog, initial encounter; Y93.89 Activity, other specified; Y92.89 Other specified places as the place of occurrence of the external cause; Y99.8 Other external cause status
CPT/HCPCS: 12001; 73140; 99284; Q0162

== ENCOUNTER 2020-10-10 05:26 | Inpatient (IN) | payer OTHER ==
[~2020-10-10] VITALS: Ht 165.1 cm; Wt 66.7 kg
[~2020-10-10 05:26] MED LIST changes: +DULO-141 PO; -DULO30CA84 PO
[2020-10-10] MEDS ORDERED: SODIUM CHLORIDE 0.9% 500 ML IVB ONE (07:00)
[2020-10-10] MEDS ORDERED: SODIUM CHLORIDE 0.9% 1,000 ML IV ONE (07:00)
[2020-10-10 08:02] LABS: Basophils # (auto) 0.1 10 ^3/uL (0-0.2); Eosinophils # (auto) 0 10 ^3/uL (0-0.8); Eosinophils % (auto) 0.1 % (0.0-7.0); Mean Corpuscular Volume 75.5 fL (80.0-100.0)
[2020-10-10 08:04] LABS: Basophils % (auto) 0.7 % (0.0-2.0); Hematocrit 35.5 % (36.0-46.0); Lymphocytes # (auto) 1.1 10 ^3/uL (0.4-5.4); Lymphocytes % (auto) 10.6 % (10.0-50.0); Mean Corpuscular Hemoglobin 23.5 pg (28.0-32.0); Mean Corpuscular Hgb Conc. 31.1 g/dL (32.0-36.0); Monocytes # (auto) 0.5 10 ^3/uL (0-1.3); Monocytes % (auto) 4.4 % (0.0-12.0); Neutrophils # (auto) 9.1 10 ^3/uL (1.6-8.6); Neutrophils % (auto) 84.2 % (37.0-80.0); Nucleated Red Blood Cells % 0.1 %; Red Blood Cells 4.69 10^6/uL (4.0-5.20); Red Cell Distribution Width 19.1 % (11.8-14.3); White Blood Cell 10.8 10^3/uL (4.4-10.8)
[2020-10-10 08:11] LABS: Albumin 3.8 g/dL (3.4-5.0); Anion Gap 14 (5-15); Blood Alcohol < 3.0 mg/dL (0-5); Blood Urea Nitrogen 12 mg/dL (7-18); Calcium 8.5 mg/dL (8.5-10.1); Carbon Dioxide 20 mmol/L (21-32); Chloride 105 mmol/L (98-107); Glucose 81 mg/dL (74-106); Potassium 3.4 mmol/L (3.5-5.1); Sodium 139 mmol/L (136-145)
[2020-10-10 08:13] LABS: Blood Alcohol < 3.0 mg/dL (0-5); Magnesium 2.2 mg/dL (1.6-2.6)
[2020-10-10 08:17] LABS: Alanine Aminotransferase 36 U/L (13-56); Alkaline Phosphatase 100 U/L (45-117); Aspartate Aminotransferase 34 U/L (15-37); BUN/Creatinine Ratio 19.4; Bilirubin, Total 0.7 mg/dL (0.2-1.0); GFR African American 122 mL/min; GFR Non-African American 101 mL/min; Total Protein 7.1 g/dL (6.4-8.2)
[2020-10-10 09:12] LABS: Alcohol, Urine < 3.0 mg/dL (0-10); Amphetamine Screen, Urine NEGATIVE (NEGATIVE); Barbiturate Scree,Urine NEGATIVE (NEGATIVE); Benzodiazephine Screen, Urine NEGATIVE (NEGATIVE); Cannabinoid Screen, Urine POSITIVE (NEGATIVE); Cocaine Screen, Urine NEGATIVE (NEGATIVE); Opiate Scree,Urine NEGATIVE (NEGATIVE); Phencyclidine Screen, Urine NEGATIVE (NEGATIVE)
[2020-10-10 09:27] LABS: Urine Bacteria NONE SEEN /hpf (None Seen); Urine Blood 1+ /uL (Negative); Urine Specific Gravity 1.012 (1.001-1.035); Urine WBC 2 /hpf (0 - 5)
[2020-10-10 19:56] LABS: Basophils # (auto) 0 10 ^3/uL (0-0.2); Basophils % (auto) 0.2 % (0.0-2.0); Eosinophils # (auto) 0 10 ^3/uL (0-0.8)
[2020-10-10 19:58] LABS: Eosinophils % (auto) 0.1 % (0.0-7.0); Hematocrit 35.7 % (36.0-46.0); Hemoglobin 11.5 g/dL (12.2-16.2); Lymphocytes # (auto) 1.1 10 ^3/uL (0.4-5.4); Lymphocytes % (auto) 7.3 % (10.0-50.0); Mean Corpuscular Hemoglobin 24.2 pg (28.0-32.0); Mean Corpuscular Hgb Conc. 32.2 g/dL (32.0-36.0); Mean Corpuscular Volume 75.3 fL (80.0-100.0); Monocytes # (auto) 0.8 10 ^3/uL (0-1.3); Monocytes % (auto) 5.5 % (0.0-12.0); Neutrophils % (auto) 86.9 % (37.0-80.0); Red Blood Cells 4.74 10^6/uL (4.0-5.20); Red Cell Distribution Width 18.6 % (11.8-14.3)
[2020-10-10 20:06] LABS: Albumin 3.7 g/dL (3.4-5.0); Calcium 8.6 mg/dL (8.5-10.1); Potassium 3.4 mmol/L (3.5-5.1)
[2020-10-10 20:08] LABS: BUN/Creatinine Ratio 19.2; Bilirubin, Total 0.7 mg/dL (0.2-1.0); Total Protein 7.1 g/dL (6.4-8.2)
[2020-10-10] MEDS: SODIUM CHLORIDE 0.9% 1,000 ML IV SCH (20:55)
[2020-10-10] MEDS ORDERED: VANCOMYCIN 1GM/250ML 250 ML IV ONE (22:15)
[2020-10-10] MEDS ORDERED: VANCOMYCIN PER PHARMACY 0 MG IV SCH (22:15)
[2020-10-10 23:02] VITALS: BP 157/74
[2020-10-11] VITALS (7 sets, daily range): BP systolic 134–195; BP diastolic 67–91
[2020-10-11] MEDS: FAMOTIDINE 20 MG TAB PO SCH ×2 (00:41→10:00)
[2020-10-11] MEDS: PRAVASTATIN SODIUM 20 MG TAB PO SCH ×2 (00:42→21:47)
[2020-10-11] MEDS ORDERED: PNEUMOCOCCAL VACC POLYS 25 MCG/0.5 ML VIAL IM ONE (04:15)
[2020-10-11] MEDS ORDERED: hydrALAZINE HCL 25 MG TAB PO ONE (06:00)
[2020-10-11] MEDS ORDERED: ONDANSETRON HCL 4 MG/2 ML VIAL IV PRN (06:00)
[2020-10-11] MEDS: PIPERACILLIN-TAZOB 3.375GM 100 ML IV SCH ×4 (06:13→18:29)
[2020-10-11] MEDS: LEVOTHYROXINE SODIUM 50 MCG TAB PO SCH (06:48)
[2020-10-11] MEDS: SODIUM CHLORIDE 0.9% 1,000 ML IV SCH (08:20)
[2020-10-11] MEDS: VANCOMYCIN 1GM/250ML 250 ML IV SCH ×2 (09:56→21:46)
[2020-10-11] MEDS: FERROUS SULFATE 325mg EC TAB PO SCH (09:56)
[2020-10-11] MEDS: VENLAFAXINE HCL 37.5mg XR cap PO SCH (09:57)
[2020-10-11] MEDS: DULoxetine HCL 30 MG CAP PO SCH (09:57)
[2020-10-11] MEDS: MULTIPLE VITAMIN TAB PO SCH (10:00)
[2020-10-11] MEDS: ENOXAPARIN SOD 40 MG/0.4 ML SYRINGE SC SCH (10:00)
[2020-10-11] MEDS: PREMARIN PO SCH (10:00)
[2020-10-11] MEDS: BUDESONIDE 9 MG PO SCH (10:00)
[2020-10-11] MEDS ORDERED: MIRTAZAPINE 30 MG TAB PO SCH (10:00)
[2020-10-11] MEDS: METOPROLOL SUCCINATE XL 50 MG TAB PO SCH (10:01)
[2020-10-11 13:35] LABS: Basophils # (auto) 0 10 ^3/uL (0-0.2); Basophils % (auto) 0.2 % (0.0-2.0); Eosinophils # (auto) 0 10 ^3/uL (0-0.8); Hemoglobin 11.3 g/dL (12.2-16.2); Lymphocytes # (auto) 0.4 10 ^3/uL (0.4-5.4); Mean Corpuscular Volume 74.9 fL (80.0-100.0)
[2020-10-11 13:36] LABS: Lymphocytes % (auto) 2.3 % (10.0-50.0); Mean Corpuscular Hemoglobin 24.1 pg (28.0-32.0); Mean Corpuscular Hgb Conc. 32.2 g/dL (32.0-36.0); Monocytes # (auto) 0.9 10 ^3/uL (0-1.3); Neutrophils # (auto) 16.1 10 ^3/uL (1.6-8.6); Neutrophils % (auto) 92.5 % (37.0-80.0); Red Blood Cells 4.67 10^6/uL (4.0-5.20); Red Cell Distribution Width 18.7 % (11.8-14.3); White Blood Cell 17.4 10^3/uL (4.4-10.8)
[2020-10-11] MEDS: hydrALAZINE HCL 20 MG/ML VL IV PRN ×3 (13:46→22:04)
[2020-10-11 14:45] LABS: Potassium 3.1 mmol/L (3.5-5.1)
[2020-10-11 14:46] LABS: BUN/Creatinine Ratio 14.8; Calcium 8.4 mg/dL (8.5-10.1)
[2020-10-11 14:47] LABS: Albumin 3.6 g/dL (3.4-5.0); Bilirubin, Total 0.8 mg/dL (0.2-1.0); Total Protein 7.1 g/dL (6.4-8.2)
[2020-10-11] MEDS: SUCRALFATE 1 GM/10 ML ORAL SUSP PO SCH ×2 (16:58→21:47)
[2020-10-11] MEDS: PANTOPRAZOLE 40 MG/10 ML VIAL INJ IV SCH (21:47)
[2020-10-12] MEDS: PIPERACILLIN-TAZOB 3.375GM 100 ML IV SCH ×4 (00:11→17:24)
[2020-10-12] MEDS ORDERED: SODIUM BICARBONATE 8.4 % INJ 50ML VIAL IV ONE (00:32)
[2020-10-12] MEDS: SODIUM BICARBONATE 50ML VIAL 50 ML in D5W 5% 1,000 ML IV SCH ×3 (00:49→17:00)
[2020-10-12 05:16] VITALS: BP 143/66
[2020-10-12 05:40] LABS: Basophils # (auto) 0 10 ^3/uL (0-0.2); Basophils % (auto) 0.2 % (0.0-2.0); Eosinophils # (auto) 0 10 ^3/uL (0-0.8); Lymphocytes # (auto) 0.7 10 ^3/uL (0.4-5.4)
[2020-10-12 05:43] LABS: Eosinophils % (auto) 0.2 % (0.0-7.0); Hemoglobin 10.7 g/dL (12.2-16.2); Lymphocytes % (auto) 4.8 % (10.0-50.0); Mean Corpuscular Hemoglobin 24.1 pg (28.0-32.0); Mean Corpuscular Hgb Conc. 32.4 g/dL (32.0-36.0); Mean Corpuscular Volume 74.4 fL (80.0-100.0); Monocytes # (auto) 1.1 10 ^3/uL (0-1.3); Monocytes % (auto) 7.3 % (0.0-12.0); Neutrophils # (auto) 13.1 10 ^3/uL (1.6-8.6); Neutrophils % (auto) 87.5 % (37.0-80.0); Red Blood Cells 4.43 10^6/uL (4.0-5.20); Red Cell Distribution Width 18.5 % (11.8-14.3); White Blood Cell 14.9 10^3/uL (4.4-10.8)
[2020-10-12 06:04] LABS: Calcium 8.5 mg/dL (8.5-10.1)
[2020-10-12 06:10] LABS: BUN/Creatinine Ratio 13.3; Bilirubin, Total 0.7 mg/dL (0.2-1.0); Total Protein 6.4 g/dL (6.4-8.2)
[2020-10-12] MEDS: LEVOTHYROXINE SODIUM 50 MCG TAB PO SCH (06:18)
[2020-10-12] MEDS: SUCRALFATE 1 GM/10 ML ORAL SUSP PO SCH ×4 (06:18→21:16)
[2020-10-12 06:21] LABS: Potassium 2.8 mmol/L (3.5-5.1)
[2020-10-12 09:00] VITALS: BP 139/63
[2020-10-12] MEDS ORDERED: POTASSIUM CHLORIDE 20 MEQ, LIDOCAINE 1% (LOCAL ANESTH.) 2 ML in SODIUM CHL 0.9% 100 ML IV ONE (09:30)
[2020-10-12] MEDS ORDERED: POTASSIUM CHL 20 Meq TABLET PO ONE (09:30)
[2020-10-12] MEDS: PANTOPRAZOLE 40 MG/10 ML VIAL INJ IV SCH ×2 (09:45→21:16)
[2020-10-12] MEDS: DULoxetine HCL 30 MG CAP PO SCH (09:47)
[2020-10-12] MEDS: VENLAFAXINE HCL 37.5mg XR cap PO SCH (09:51)
[2020-10-12] MEDS: MULTIPLE VITAMIN TAB PO SCH (09:52)
[2020-10-12] MEDS: MIRTAZAPINE 30 MG TAB PO SCH (09:53)
[2020-10-12] MEDS: METOPROLOL SUCCINATE XL 50 MG TAB PO SCH (09:54)
[2020-10-12] MEDS: FERROUS SULFATE 325mg EC TAB PO SCH (09:55)
[2020-10-12] MEDS: ENOXAPARIN SOD 40 MG/0.4 ML SYRINGE SC SCH (09:55)
[2020-10-12] MEDS: PREMARIN PO SCH (10:00)
[2020-10-12] MEDS: BUDESONIDE 9 MG PO SCH (10:00)
[2020-10-12 10:50] LABS: Folate (Folic Acid) 11.46 ng/mL (5.38-24)
[2020-10-12 11:03] LABS: Red Blood Cells 4.72 10^6/uL (4.0-5.20)
[2020-10-12 11:04] LABS: Hematocrit 35.3 % (36.0-46.0); Hemoglobin 11.4 g/dL (12.2-16.2); Mean Corpuscular Hemoglobin 24.2 pg (28.0-32.0); Mean Corpuscular Hgb Conc. 32.3 g/dL (32.0-36.0); Mean Corpuscular Volume 74.7 fL (80.0-100.0); White Blood Cell 18.5 10^3/uL (4.4-10.8)
[2020-10-12 11:12] LABS: Basophils % (manual) 0 (0.0-2.0); Blast Cells 0; Eosinophils % (manual) 0 (0-7); Myelocytes % 0; Promyelocytes % 0; Reactive Lymphocytes 0
[2020-10-12] MEDS ORDERED: GOLYTELY 4L KIT PO ONE (11:30)
[2020-10-12 13:00] VITALS: BP 162/72
[2020-10-12 13:41] LABS: Band Neutrophils % (manual) 2; Lymphocytes % (manual) 3 (10.0-50.0); Metamyelocytes % 1; Monocytes % (manual) 4 (0-12)
[2020-10-12 14:11] LABS: Urine Bacteria NONE SEEN /hpf (None Seen); Urine Blood 3+ /uL (Negative); Urine Specific Gravity 1.015 (1.001-1.035); Urine WBC 10 /hpf (0 - 5)
[2020-10-12 17:00] VITALS: BP 167/62
[2020-10-12 17:20] VITALS: BP 140/58
[2020-10-12 20:00] VITALS: BP 139/63
[2020-10-12] MEDS: PRAVASTATIN SODIUM 20 MG TAB PO SCH (21:16)
[2020-10-12] MEDS ORDERED: CEFEPIME 1 GM in SODIUM CHL 0.9% 50 ML IV SCH (22:00)
[2020-10-12 22:15] LABS: BUN/Creatinine Ratio 8.8; Calcium 8.6 mg/dL (8.5-10.1); Potassium 3.7 mmol/L (3.5-5.1)
[2020-10-13] MEDS: SUCRALFATE 1 GM/10 ML ORAL SUSP PO SCH ×2 (01:50→11:18)
[2020-10-13] MEDS: CEFEPIME 1 GM in SODIUM CHL 0.9% 50 ML IV SCH ×2 (01:50→21:05)
[2020-10-13] MEDS: LEVOTHYROXINE SODIUM 50 MCG TAB PO SCH (04:29)
[2020-10-13] MEDS: SODIUM BICARBONATE 50ML VIAL 50 ML in D5W 5% 1,000 ML IV SCH (04:29)
[2020-10-13 05:25] VITALS: BP 135/65
[2020-10-13 07:00] LABS: Eosinophils # (auto) 0 10 ^3/uL (0-0.8); Eosinophils % (auto) 0.2 % (0.0-7.0); Hemoglobin 10.6 g/dL (12.2-16.2); Mean Corpuscular Hemoglobin 24.4 pg (28.0-32.0); Neutrophils # (auto) 10.8 10 ^3/uL (1.6-8.6)
[2020-10-13 07:03] LABS: Basophils # (auto) 0 10 ^3/uL (0-0.2); Basophils % (auto) 0.3 % (0.0-2.0); Hematocrit 31.8 % (36.0-46.0); Lymphocytes # (auto) 1.2 10 ^3/uL (0.4-5.4); Lymphocytes % (auto) 8.8 % (10.0-50.0); Mean Corpuscular Hgb Conc. 33.2 g/dL (32.0-36.0); Mean Corpuscular Volume 73.5 fL (80.0-100.0); Monocytes # (auto) 1.1 10 ^3/uL (0-1.3); Monocytes % (auto) 8.5 % (0.0-12.0); Neutrophils % (auto) 82.2 % (37.0-80.0); Red Blood Cells 4.33 10^6/uL (4.0-5.20); Red Cell Distribution Width 18.5 % (11.8-14.3); White Blood Cell 13.1 10^3/uL (4.4-10.8)
[2020-10-13 07:27] LABS: Potassium 3.1 mmol/L (3.5-5.1)
[2020-10-13 07:32] LABS: BUN/Creatinine Ratio 9.5; Calcium 8.3 mg/dL (8.5-10.1)
[2020-10-13 09:00] VITALS: BP 158/76
[2020-10-13] MEDS ORDERED: LIDOCAINE VISCOUS 2% 15ML UD ONE (09:07)
[2020-10-13] MEDS: BUDESONIDE 9 MG PO SCH (09:32)
[2020-10-13] MEDS: FERROUS SULFATE 325mg EC TAB PO SCH (09:32)
[2020-10-13] MEDS: PANTOPRAZOLE 40 MG/10 ML VIAL INJ IV SCH (09:32)
[2020-10-13] MEDS: ENOXAPARIN SOD 40 MG/0.4 ML SYRINGE SC SCH (09:33)
[2020-10-13] MEDS: MIRTAZAPINE 30 MG TAB PO SCH (09:33)
[2020-10-13] MEDS: MULTIPLE VITAMIN TAB PO SCH (09:33)
[2020-10-13] MEDS: PREMARIN PO SCH (09:33)
[2020-10-13] MEDS: VENLAFAXINE HCL 37.5mg XR cap PO SCH (09:33)
[2020-10-13] MEDS: DULoxetine HCL 30 MG CAP PO SCH (09:33)
[2020-10-13] MEDS: METOPROLOL SUCCINATE XL 50 MG TAB PO SCH (09:33)
[2020-10-13] MEDS ORDERED: POTASSIUM CHLORIDE 20 MEQ, LIDOCAINE 1% (LOCAL ANESTH.) 2 ML in SODIUM CHL 0.9% 100 ML IV ONE (10:30)
[2020-10-13] MEDS ORDERED: MIDAZOLAM HCL 2MG/2ML 2ml VIAL (1mg/ml) ONE (11:08)
[2020-10-13] MEDS ORDERED: fentaNYL CITRATE 100 MCG/2 ML VL ONE (11:08)
[2020-10-13] MEDS ORDERED: LIDOCAINE 2% (LOCAL ANESTH.) PF 5ml SDV ONE (11:09)
[2020-10-13] MEDS ORDERED: PROPOFOL 10 MG/ML 20 ML IV ONE (11:09)
[2020-10-13] MEDS ORDERED: ONDANSETRON HCL 4 MG/2 ML VIAL IV PRN (12:00)
[2020-10-13] MEDS: SODIUM CHLORIDE 0.9% 1,000 ML IV SCH (12:44)
[2020-10-13 13:00] VITALS: BP 132/67
[2020-10-13] MEDS: hydrALAZINE HCL 20 MG/ML VL IV PRN (14:31)
[2020-10-13 15:30] VITALS: BP 132/67
[2020-10-13 17:00] VITALS: BP 148/70
[2020-10-13] MEDS ORDERED: DULO1CAP5 PO (18:07)
[2020-10-13] MEDS ORDERED: METH750T22 PO (18:07)
[2020-10-13] MEDS ORDERED: OXYB5TAB61 PO (18:07)
[2020-10-13] MEDS ORDERED: LEVO88TA2 PO (18:07)
[2020-10-13] MEDS ORDERED: ACETAMINOPHEN 325 MG TAB PO PRN (20:30)
[2020-10-13] MEDS: PRAVASTATIN SODIUM 20 MG TAB PO SCH (21:07)
[2020-10-13] MEDS: HEPARIN SODIUM (PORCINE) 5000 UNITS/ML 1ML VIAL SC SCH (21:07)
[2020-10-13 22:00] VITALS: BP 146/70
[2020-10-14] MEDS: SODIUM CHLORIDE 0.9% 1,000 ML IV SCH ×2 (02:09→13:22)
[2020-10-14 05:00] VITALS: BP 158/74
[2020-10-14] MEDS: hydrALAZINE HCL 20 MG/ML VL IV PRN ×2 (05:20→13:51)
[2020-10-14 06:32] VITALS: BP 144/60
[2020-10-14] MEDS: LEVOTHYROXINE SODIUM 50 MCG TAB PO SCH (06:41)
[2020-10-14 07:23] LABS: Basophils # (auto) 0 10 ^3/uL (0-0.2); Eosinophils # (auto) 0 10 ^3/uL (0-0.8); Eosinophils % (auto) 0.1 % (0.0-7.0); Monocytes # (auto) 0.9 10 ^3/uL (0-1.3); White Blood Cell 10.4 10^3/uL (4.4-10.8)
[2020-10-14 07:26] LABS: Basophils % (auto) 0.2 % (0.0-2.0); Lymphocytes # (auto) 1.7 10 ^3/uL (0.4-5.4); Lymphocytes % (auto) 16.1 % (10.0-50.0); Mean Corpuscular Hemoglobin 24.1 pg (28.0-32.0); Mean Corpuscular Hgb Conc. 32.4 g/dL (32.0-36.0); Mean Corpuscular Volume 74.5 fL (80.0-100.0); Neutrophils # (auto) 7.8 10 ^3/uL (1.6-8.6); Neutrophils % (auto) 74.6 % (37.0-80.0); Nucleated Red Blood Cells % 0.1 %; Red Blood Cells 4.55 10^6/uL (4.0-5.20); Red Cell Distribution Width 19.1 % (11.8-14.3)
[2020-10-14 07:34] LABS: Calcium 8.7 mg/dL (8.5-10.1); Potassium 3.2 mmol/L (3.5-5.1)
[2020-10-14] MEDS ORDERED: POTASSIUM CHL 20 Meq TABLET PO ONE (08:30)
[2020-10-14] MEDS ORDERED: POTASSIUM CHL 20MEQ/100ML 100 ML IV ONE (08:30)
[2020-10-14 09:00] VITALS: BP 191/65
[2020-10-14] MEDS ORDERED: amLODIPine BESYLATE 5 MG TAB PO ONE (09:30)
[2020-10-14] MEDS ORDERED: amLODIPine BESYLATE 5 MG TAB PO SCH (10:00)
[2020-10-14] MEDS: HEPARIN SODIUM (PORCINE) 5000 UNITS/ML 1ML VIAL SC SCH ×2 (10:00→22:12)
[2020-10-14] MEDS: DULoxetine HCL 30 MG CAP PO SCH (10:27)
[2020-10-14] MEDS: PANTOPRAZOLE 40 MG TAB PO SCH (10:28)
[2020-10-14] MEDS: MULTIPLE VITAMIN TAB PO SCH (10:28)
[2020-10-14] MEDS: METOPROLOL SUCCINATE XL 50 MG TAB PO SCH (10:29)
[2020-10-14] MEDS: LORazepam 0.5 MG TAB PO PRN ×2 (11:27→23:38)
[2020-10-14] MEDS: HYDROcodone-ACET 5/325MG TAB PO PRN ×2 (11:28→19:47)
[2020-10-14 13:00] VITALS: BP 166/62
[2020-10-14] MEDS ORDERED: METOPROLOL TARTRATE 25 MG TAB PO ONE (13:30)
[2020-10-14 17:00] VITALS: BP 158/58
[2020-10-14] MEDS ORDERED: SODIUM CHLORIDE 0.9% 1,000 ML IV ONE (20:30)
[2020-10-14 22:08] VITALS: BP 168/69
[2020-10-14] MEDS: CEFEPIME 1 GM in SODIUM CHL 0.9% 50 ML IV SCH (22:11)
[2020-10-14] MEDS: PRAVASTATIN SODIUM 20 MG TAB PO SCH (22:12)
[2020-10-15] MEDS: hydrALAZINE HCL 20 MG/ML VL IV PRN ×2 (02:20→11:42)
[2020-10-15] MEDS: HYDROcodone-ACET 5/325MG TAB PO PRN ×2 (04:51→14:52)
[2020-10-15] MEDS: SODIUM CHLORIDE 0.9% 1,000 ML IV SCH (04:57)
[2020-10-15 05:06] VITALS: BP 160/70
[2020-10-15 06:14] LABS: Basophils # (auto) 0.2 10 ^3/uL (0-0.2); Basophils % (auto) 2.3 % (0.0-2.0); Eosinophils # (auto) 0 10 ^3/uL (0-0.8); Eosinophils % (auto) 0.3 % (0.0-7.0); Hematocrit 31.6 % (36.0-46.0); Hemoglobin 10.2 g/dL (12.2-16.2); Lymphocytes % (auto) 20.6 % (10.0-50.0); Mean Corpuscular Hemoglobin 24.1 pg (28.0-32.0); Mean Corpuscular Hgb Conc. 32.3 g/dL (32.0-36.0); Mean Corpuscular Volume 74.5 fL (80.0-100.0); Monocytes # (auto) 0.6 10 ^3/uL (0-1.3); Monocytes % (auto) 6.2 % (0.0-12.0); Neutrophils # (auto) 6.7 10 ^3/uL (1.6-8.6); Neutrophils % (auto) 70.6 % (37.0-80.0); Red Blood Cells 4.24 10^6/uL (4.0-5.20); Red Cell Distribution Width 18.3 % (11.8-14.3); White Blood Cell 9.5 10^3/uL (4.4-10.8)
[2020-10-15 06:15] LABS: Calcium 8.6 mg/dL (8.5-10.1); Potassium 3.2 mmol/L (3.5-5.1)
[2020-10-15] MEDS: LEVOTHYROXINE SODIUM 50 MCG TAB PO SCH (06:35)
[2020-10-15] MEDS ORDERED: POTASSIUM CHL 20 Meq TABLET PO ONE (08:00)
[2020-10-15 09:00] VITALS: BP 181/79
[2020-10-15] MEDS: MULTIPLE VITAMIN TAB PO SCH (09:58)
[2020-10-15] MEDS ORDERED: amLODIPine BESYLATE 5 MG TAB PO SCH (10:00)
[2020-10-15] MEDS ORDERED: METOPROLOL SUCCINATE XL 50 MG TAB PO SCH (10:00)
[2020-10-15] MEDS: PANTOPRAZOLE 40 MG TAB PO SCH (10:00)
[2020-10-15] MEDS: DULoxetine HCL 30 MG CAP PO SCH (10:01)
[2020-10-15] MEDS: HEPARIN SODIUM (PORCINE) 5000 UNITS/ML 1ML VIAL SC SCH (10:11)
[2020-10-15 11:30] VITALS: BP 127/70
[2020-10-15 13:00] VITALS: BP 127/70
[2020-10-15 17:00] VITALS: BP 149/66
== END 2020-10-15 16:55 | disposition home health service (06) | DRG 71 ==
LOC: ER 05:26 → EDBD 05:26 → INTOOBSV 18:50 → OVERFLOW 18:50 → OBSVTOIN 18:50 → WEST WING 22:17
PROVIDERS: ADMIT Internal Medicine; ATTEND Internal Medicine
PROC: 0DB68ZX Excision of Stomach, Via Natural or Artificial Opening Endoscopic, Diagnostic (ICD-10-PCS; principal; 2020-10-13 11:12)
PROC: 0DJD8ZZ Inspection of Lower Intestinal Tract, Via Natural or Artificial Opening Endoscopic (ICD-10-PCS; 2020-10-13 11:12)
DX: G93.40 Encephalopathy, unspecified (principal); E87.2 Acidosis; N17.9 Acute kidney failure, unspecified; F33.0 Major depressive disorder, recurrent, mild; R65.10 Systemic inflammatory response syndrome (SIRS) of non-infectious origin without acute organ dysfunction; K29.70 Gastritis, unspecified, without bleeding; Z20.822 Contact with and (suspected) exposure to COVID-19; D50.9 Iron deficiency anemia, unspecified; E87.6 Hypokalemia; F41.9 Anxiety disorder, unspecified; E78.5 Hyperlipidemia, unspecified; E03.9 Hypothyroidism, unspecified; F12.90 Cannabis use, unspecified, uncomplicated; G89.29 Other chronic pain; M54.9 Dorsalgia, unspecified; T40.7X5A Adverse effect of cannabis (derivatives), initial encounter; I10 Essential (primary) hypertension; K57.30 Diverticulosis of large intestine without perforation or abscess without bleeding; K21.9 Gastro-esophageal reflux disease without esophagitis; Z87.11 Personal history of peptic ulcer disease; Z90.710 Acquired absence of both cervix and uterus; Z79.899 Other long term (current) drug therapy; Z90.49 Acquired absence of other specified parts of digestive tract; Z90.89 Acquired absence of other organs; Z82.49 Family history of ischemic heart disease and other diseases of the circulatory system; Z82.5 Family history of asthma and other chronic lower respiratory diseases; Y92.89 Other specified places as the place of occurrence of the external cause
CPT/HCPCS: 36415; 43239; 45378; 70450; 71045; 74176; 76775; 80048; 80053; 80202; 80307; 80320; 81001; 82607; 82746; 83605; 83615; 83735; 84443; 84484; 85007; 85025; 85027; 85049; 85610; 86141; 87040; 87081; 87086; 87426; 93005; 95819; 96361; 96365; 97110; 97116; 97530; C9113; G0378; J2001; J2250; J2405; J2543; J2704; J3480

== ENCOUNTER 2020-10-25 19:51 | Observation (INO) | payer OTHER ==
[~2020-10-25] VITALS: Ht 167.6 cm; Wt 92.1 kg
[~2020-10-25 19:51] MED LIST changes: -ALPR2TAB2 PO; -BUDE9TAB2 PO; -CHL4PW PO; -DULO-141 PO; +DULO1CAP5 PO; -FAMO20TA10 PO; -FERR-20 PO; -LEV50T PO; +LEVO88TA2 PO; -LOVA10TA54 PO; +METH750T22 PO; -METO25TA93 PO; -MIRT-66 PO; -MULT-1018 PO; -MUPI2OIN2 TOP; -OMEP20CA74 PO; +OXYB5TAB61 PO; -PREMARIN PO; -VENL150C58 PO; -VENL37.572 PO
[2020-10-25 21:57] LABS: Basophils # (auto) 0.1 10 ^3/uL (0-0.2); Eosinophils # (auto) 0.1 10 ^3/uL (0-0.8); Eosinophils % (auto) 0.7 % (0.0-7.0); Lymphocytes # (auto) 3.3 10 ^3/uL (0.4-5.4); Lymphocytes % (auto) 34.8 % (10.0-50.0); Monocytes # (auto) 0.6 10 ^3/uL (0-1.3); Neutrophils # (auto) 5.4 10 ^3/uL (1.6-8.6); Neutrophils % (auto) 57.3 % (37.0-80.0); Nucleated Red Blood Cells % 0.1 %; White Blood Cell 9.5 10^3/uL (4.4-10.8)
[2020-10-25 21:58] LABS: Basophils % (auto) 0.6 % (0.0-2.0); Hematocrit 29.8 % (36.0-46.0); Hemoglobin 9.8 g/dL (12.2-16.2); Mean Corpuscular Hemoglobin 25.3 pg (28.0-32.0); Mean Corpuscular Hgb Conc. 32.8 g/dL (32.0-36.0); Monocytes % (auto) 6.6 % (0.0-12.0); Platelet Count (auto) 469 10^3/uL (140-450); Red Blood Cells 3.87 10^6/uL (4.0-5.20); Red Cell Distribution Width 18.6 % (11.8-14.3)
[2020-10-25 22:01] LABS: INR 1.02 (0.9-1.15)
[2020-10-25 22:13] LABS: Albumin 3.1 g/dL (3.4-5.0); Anion Gap 9 (5-15); Blood Urea Nitrogen 23 mg/dL (7-18); Calcium 8.8 mg/dL (8.5-10.1); Carbon Dioxide 25 mmol/L (21-32); Chloride 105 mmol/L (98-107); Glucose 110 mg/dL (74-106); Lipase 959 U/L (73-393); Magnesium 1.4 mg/dL (1.6-2.6); Potassium 3.1 mmol/L (3.5-5.1); Sodium 139 mmol/L (136-145)
[2020-10-25 22:22] LABS: Alanine Aminotransferase 14 U/L (13-56); Alkaline Phosphatase 66 U/L (45-117); Aspartate Aminotransferase 10 U/L (15-37); BUN/Creatinine Ratio 34.8; Bilirubin, Total 0.1 mg/dL (0.2-1.0); Blood Alcohol < 3.0 mg/dL (0-5); GFR African American 114 mL/min; GFR Non-African American 94 mL/min
[2020-10-25] MEDS ORDERED: POTASSIUM CHL 20MEQ/100ML 100 ML IV STA (22:47)
[2020-10-25] MEDS ORDERED: IOHEXOL 300 MG/ML 100ML BOTTLE IJ ONE (22:59)
[2020-10-25] MEDS ORDERED: LACTATED RINGER'S 500 ML IV ONE (23:00)
[2020-10-25] MEDS ORDERED: POTASSIUM EFFERVESENT TAB 25 MEQ PO ONE (23:00)
[2020-10-25] MEDS ORDERED: fentaNYL CITRATE 100 MCG/2 ML VL IV ONE (23:00)
[2020-10-25] MEDS ORDERED: ONDANSETRON HCL 4 MG/2 ML VIAL IV ONE (23:00)
[2020-10-25 23:48] LABS: Urine Bacteria NONE SEEN /hpf (None Seen); Urine Blood Negative /uL (Negative); Urine Specific Gravity 1.031 (1.001-1.035); Urine WBC 10 /hpf (0 - 5)
[2020-10-26] VITALS (7 sets, daily range): BP systolic 120–160; BP diastolic 54–76
[2020-10-26 00:03] LABS: Amphetamine Screen, Urine NEGATIVE (NEGATIVE); Barbiturate Scree,Urine NEGATIVE (NEGATIVE); Benzodiazephine Screen, Urine NEGATIVE (NEGATIVE); Cannabinoid Screen, Urine POSITIVE (NEGATIVE); Cocaine Screen, Urine NEGATIVE (NEGATIVE); Opiate Scree,Urine NEGATIVE (NEGATIVE); Phencyclidine Screen, Urine NEGATIVE (NEGATIVE)
[2020-10-26] MEDS ORDERED: cefTRIAXone 1GM/50ML D5W 50 ML IV ONE (00:15)
[2020-10-26] MEDS ORDERED: MAGNESIUM SULFATE 1GM/100ML 100 ML IV ONE (00:30)
[2020-10-26] MEDS ORDERED: SOD CHL 0.45% 1,000 ML IV ONE (00:30)
[2020-10-26] MEDS ORDERED: ONDANSETRON HCL 4 MG/2 ML VIAL IV PRN (00:30)
[2020-10-26 00:59] LABS: Alcohol, Urine < 3.0 mg/dL (0-10)
[2020-10-26] MEDS: MORPHINE SULF INJ 2 MG/ML SYRINGE 1ML IV PRN ×4 (01:50→16:51)
[2020-10-26] MEDS ORDERED: AMLO-489 PO (05:40)
[2020-10-26] MEDS ORDERED: ATOR40TA52 PO (05:40)
[2020-10-26] MEDS ORDERED: METO-289 PO (05:40)
[2020-10-26] MEDS ORDERED: DULO60CA PO (05:40)
[2020-10-26] MEDS ORDERED: OMEP20TA PO (05:40)
[2020-10-26 06:05] LABS: Albumin 3.3 g/dL (3.4-5.0); Potassium 3.9 mmol/L (3.5-5.1)
[2020-10-26 06:06] LABS: Basophils # (auto) 0.1 10 ^3/uL (0-0.2); Eosinophils # (auto) 0.1 10 ^3/uL (0-0.8); Hemoglobin 10.4 g/dL (12.2-16.2); Monocytes # (auto) 0.5 10 ^3/uL (0-1.3); Neutrophils # (auto) 3.8 10 ^3/uL (1.6-8.6); White Blood Cell 7.3 10^3/uL (4.4-10.8)
[2020-10-26 06:08] LABS: Basophils % (auto) 0.9 % (0.0-2.0); Hematocrit 31.2 % (36.0-46.0); Lymphocytes % (auto) 40.3 % (10.0-50.0); Mean Corpuscular Hemoglobin 25.4 pg (28.0-32.0); Mean Corpuscular Hgb Conc. 33.2 g/dL (32.0-36.0); Mean Corpuscular Volume 76.4 fL (80.0-100.0); Monocytes % (auto) 6.5 % (0.0-12.0); Neutrophils % (auto) 51.3 % (37.0-80.0); Platelet Count (auto) 499 10^3/uL (140-450); Red Blood Cells 4.08 10^6/uL (4.0-5.20); Red Cell Distribution Width 19.2 % (11.8-14.3)
[2020-10-26 06:10] LABS: BUN/Creatinine Ratio 23.2; Bilirubin, Total 0.3 mg/dL (0.2-1.0); Total Protein 6.2 g/dL (6.4-8.2)
[2020-10-26] MEDS ORDERED: GABA-339 PO (07:05)
[2020-10-26] MEDS ORDERED: HYDR-4798 PO (08:15)
[2020-10-26] MEDS: amLODIPine BESYLATE 5 MG TAB PO SCH (08:27)
[2020-10-26] MEDS: METOPROLOL SUCCINATE XL 50 MG TAB PO SCH (08:28)
[2020-10-26] MEDS: HYDROcodone-ACET 10/325MG TAB PO PRN ×3 (08:29→22:31)
[2020-10-26] MEDS: GABAPENTIN 300 MG CAP PO SCH ×3 (08:34→22:30)
[2020-10-26] MEDS: LEVOTHYROXINE SODIUM 88 MCG TAB PO SCH (08:34)
[2020-10-26] MEDS ORDERED: D5W/SOD CHL 0.45% 1,000 ML IV SCH (09:00)
[2020-10-26] MEDS ORDERED: ALUM & MAG HYDROX-SIMETH LIQ(MAALOX) 30 ML PO ONE (09:15)
[2020-10-26] MEDS ORDERED: ONDA-144 PO (09:18)
[2020-10-26] MEDS ORDERED: hydrALAZINE HCL 20 MG/ML VL IV PRN (09:30)
[2020-10-26] MEDS ORDERED: CIPROFLOXACIN 400MG/200ML 200 ML IV SCH (10:00)
[2020-10-26] MEDS: PANTOPRAZOLE 40 MG/10 ML VIAL INJ IV SCH ×2 (10:48→22:30)
[2020-10-26] MEDS ORDERED: IOHEXOL 300 MG/ML 100ML BOTTLE IJ ONE (15:26)
[2020-10-26] MEDS: SUCRALFATE 1 GM/10 ML ORAL SUSP PO SCH ×3 (16:16→22:30)
[2020-10-26] MEDS: D5W/SOD CHL 0.45%/KCL 20MEQ 1,000 ML IV SCH (16:59)
[2020-10-26] MEDS: METOCLOPRAMIDE HCL 10 MG TAB PO SCH (16:59)
[2020-10-26] MEDS ORDERED: traZODone HCL 50 MG TAB PO SCH (22:00)
[2020-10-27] MEDS: D5W/SOD CHL 0.45%/KCL 20MEQ 1,000 ML IV SCH ×2 (02:01→11:15)
[2020-10-27 05:06] LABS: Basophils # (auto) 0.1 10 ^3/uL (0-0.2); Eosinophils # (auto) 0 10 ^3/uL (0-0.8); Eosinophils % (auto) 0.1 % (0.0-7.0); Monocytes # (auto) 0.9 10 ^3/uL (0-1.3)
[2020-10-27 05:09] LABS: Basophils % (auto) 0.7 % (0.0-2.0); Hematocrit 28.8 % (36.0-46.0); Hemoglobin 9.5 g/dL (12.2-16.2); Lymphocytes # (auto) 2.9 10 ^3/uL (0.4-5.4); Lymphocytes % (auto) 20.4 % (10.0-50.0); Mean Corpuscular Hemoglobin 25.4 pg (28.0-32.0); Mean Corpuscular Hgb Conc. 33.1 g/dL (32.0-36.0); Mean Corpuscular Volume 76.8 fL (80.0-100.0); Monocytes % (auto) 6.3 % (0.0-12.0); Neutrophils # (auto) 10.3 10 ^3/uL (1.6-8.6); Neutrophils % (auto) 72.5 % (37.0-80.0); Platelet Count (auto) 430 10^3/uL (140-450); Red Blood Cells 3.76 10^6/uL (4.0-5.20); Red Cell Distribution Width 19.6 % (11.8-14.3); White Blood Cell 14.2 10^3/uL (4.4-10.8)
[2020-10-27 05:29] LABS: Albumin 2.8 g/dL (3.4-5.0)
[2020-10-27 05:32] LABS: Bilirubin, Total 0.3 mg/dL (0.2-1.0); Total Protein 5.4 g/dL (6.4-8.2)
[2020-10-27] MEDS: GABAPENTIN 300 MG CAP PO SCH ×2 (06:48→12:36)
[2020-10-27] MEDS: SUCRALFATE 1 GM/10 ML ORAL SUSP PO SCH ×2 (06:48→12:37)
[2020-10-27] MEDS: LEVOTHYROXINE SODIUM 88 MCG TAB PO SCH (06:48)
[2020-10-27 08:49] VITALS: BP 101/55
[2020-10-27] MEDS: PANTOPRAZOLE 40 MG/10 ML VIAL INJ IV SCH (08:58)
[2020-10-27] MEDS ORDERED: TRAZ-181 PO (08:59)
[2020-10-27] MEDS ORDERED: GABA300C10 PO (08:59)
[2020-10-27] MEDS: amLODIPine BESYLATE 5 MG TAB PO SCH (08:59)
[2020-10-27] MEDS: METOPROLOL SUCCINATE XL 50 MG TAB PO SCH (09:00)
[2020-10-27] MEDS: METOCLOPRAMIDE HCL 10 MG TAB PO SCH (09:02)
[2020-10-27] MEDS ORDERED: HYDROmorphone HCL 2 MG/ML VL IV PRN (09:15)
[2020-10-27 11:45] VITALS: BP 101/55
[2020-10-27 13:00] VITALS: BP 106/60
== END 2020-10-27 14:45 | disposition home health service (06) ==
LOC: ER 19:51 → EDBD 19:51 → INTOOBSV 10-26 00:18 → OVERFLOW 10-26 00:18 → WEST WING 10-26 02:46
PROVIDERS: ADMIT Internal Medicine; ATTEND Internal Medicine
DX: K85.90 Acute pancreatitis without necrosis or infection, unspecified (principal); Z20.822 Contact with and (suspected) exposure to COVID-19; E87.6 Hypokalemia; E86.0 Dehydration; N39.0 Urinary tract infection, site not specified; K76.9 Liver disease, unspecified; K29.70 Gastritis, unspecified, without bleeding; D18.03 Hemangioma of intra-abdominal structures; R74.8 Abnormal levels of other serum enzymes; M85.80 Other specified disorders of bone density and structure, unspecified site; D84.9 Immunodeficiency, unspecified; K57.30 Diverticulosis of large intestine without perforation or abscess without bleeding; E03.9 Hypothyroidism, unspecified; K21.9 Gastro-esophageal reflux disease without esophagitis; E78.5 Hyperlipidemia, unspecified; I10 Essential (primary) hypertension; G89.29 Other chronic pain; F41.8 Other specified anxiety disorders; F12.90 Cannabis use, unspecified, uncomplicated; Z87.11 Personal history of peptic ulcer disease; Z90.710 Acquired absence of both cervix and uterus; Z85.41 Personal history of malignant neoplasm of cervix uteri; Z79.899 Other long term (current) drug therapy
CPT/HCPCS: 36415; 71045; 74177; 80053; 80307; 80320; 81001; 82140; 82550; 83605; 83690; 83735; 84484; 85025; 85049; 85610; 87081; 87426; 96361; 96365; 96366; 96367; 96368; 96375; 96376; 99285; C9113; G0378; J0360; J0696; J1170; J2270; J2405; J3010; J3475; J3480; J7070; J8597; Q9967

== ENCOUNTER 2021-02-14 08:53 | Emergency (ER) | payer OTHER ==
[~2021-02-14] VITALS: Ht 167.6 cm; Wt 49.9 kg
[~2021-02-14 08:53] MED LIST changes: +AMLO-489 PO; +ATOR40TA52 PO; -DULO1CAP5 PO; +DULO60CA PO; +GABA-339 PO; +GABA300C10 PO; +HYDR-4798 PO; +METO-289 PO; +OMEP20TA PO; +ONDA-144 PO; -OXYB5TAB61 PO; -OXYC10TA44 PO; +TRAZ-181 PO
[2021-02-14] MEDS ORDERED: HYDROcodone-ACET 5/325MG TAB PO ONE (09:30)
[2021-02-14 09:47] LABS: Basophils # (auto) 0 10 ^3/uL (0-0.2); Eosinophils # (auto) 0.1 10 ^3/uL (0-0.8); Hemoglobin 10.8 g/dL (12.2-16.2); Lymphocytes # (auto) 3.1 10 ^3/uL (0.4-5.4)
[2021-02-14 09:49] LABS: Basophils % (auto) 0.3 % (0.0-2.0); Eosinophils % (auto) 0.6 % (0.0-7.0); Hematocrit 35.2 % (36.0-46.0); Lymphocytes % (auto) 30.6 % (10.0-50.0); Mean Corpuscular Hemoglobin 22.7 pg (28.0-32.0); Mean Corpuscular Hgb Conc. 30.5 g/dL (32.0-36.0); Mean Corpuscular Volume 74.2 fL (80.0-100.0); Monocytes # (auto) 0.7 10 ^3/uL (0-1.3); Monocytes % (auto) 6.5 % (0.0-12.0); Neutrophils # (auto) 6.3 10 ^3/uL (1.6-8.6); Red Blood Cells 4.75 10^6/uL (4.0-5.20); Red Cell Distribution Width 18.1 % (11.8-14.3); White Blood Cell 10.2 10^3/uL (4.4-10.8)
[2021-02-14 09:54] LABS: Albumin 3.2 g/dL (3.4-5.0); Anion Gap 7 (5-15); Blood Urea Nitrogen 15 mg/dL (7-18); Calcium 8.9 mg/dL (8.5-10.1); Carbon Dioxide 23 mmol/L (21-32); Chloride 113 mmol/L (98-107); Glucose 86 mg/dL (74-106); Sodium 143 mmol/L (136-145)
[2021-02-14 10:01] LABS: Alanine Aminotransferase 14 U/L (13-56); Alkaline Phosphatase 86 U/L (45-117); Aspartate Aminotransferase 8 U/L (15-37); Bilirubin, Total 0.4 mg/dL (0.2-1.0); GFR African American 98 mL/min; GFR Non-African American 81 mL/min; Total Protein 6.3 g/dL (6.4-8.2)
[2021-02-14] MEDS ORDERED: KETOROLAC TROMETH 30 MG/ML 1ML VIAL IV ONE (12:15)
[2021-02-14] MEDS ORDERED: POTASSIUM EFFERVESENT TAB 25 MEQ PO ONE (12:15)
[2021-02-14] MEDS ORDERED: SODIUM CHLORIDE 0.9% 1,000 ML IV ONE (12:45)
[2021-02-14] MEDS ORDERED: OXYCODONE W/ ACETAMINOPHEN 5/325MG TABLET PO ONE (12:45)
[2021-02-14 13:00] VITALS: BP 173/78
[2021-02-14 13:38] LABS: Urine Bacteria NONE SEEN /hpf (None Seen); Urine Blood Negative /uL (Negative); Urine Specific Gravity 1.022 (1.001-1.035); Urine WBC 29 /hpf (0 - 5)
[2021-02-14] MEDS ORDERED: cefTRIAXone 1GM/50ML D5W 50 ML IV ONE (17:15)
== END 2021-02-14 19:45 | disposition home or self-care (01) ==
LOC: EDBD 08:53 → ER 08:53
DX: N39.0 Urinary tract infection, site not specified (principal); G89.29 Other chronic pain; M54.50 Low back pain, unspecified; K21.9 Gastro-esophageal reflux disease without esophagitis; E78.5 Hyperlipidemia, unspecified; I10 Essential (primary) hypertension; Z90.49 Acquired absence of other specified parts of digestive tract; Z90.710 Acquired absence of both cervix and uterus
CPT/HCPCS: 36415; 71045; 72131; 74176; 80053; 81001; 84484; 85025; 93005; 96361; 96374; 99285; J1885; J7030

== ENCOUNTER 2023-05-13 10:07 | Emergency (ER) | payer OTHER ==
[~2023-05-13] VITALS: Ht 167.6 cm; Wt 72.7 kg
[~2023-05-13 10:07] MED LIST changes: -AMLO-489 PO; +AMLO1TAB22 PO; -DULO60CA PO; +DULO60CA41 PO; +GABA-1250 PO; -GABA300C10 PO; +METH-1182 PO; -METH750T22 PO
[2023-05-13] MEDS ORDERED: ONDANSETRON HCL 4 MG/2 ML VIAL IV ONE (10:45)
[2023-05-13] MEDS ORDERED: fentaNYL CITRATE 100 MCG/2 ML VL IV ONE (10:45)
[2023-05-13 10:48] VITALS: TEMP 97.7
[2023-05-13 11:23] LABS: Basophils # (auto) 0 10 ^3/uL (0-0.2); Basophils % (auto) 0.2 % (0.0-2.0); Eosinophils # (auto) 0 10 ^3/uL (0-0.8); Eosinophils % (auto) 0.1 % (0.0-7.0); Hematocrit 43.5 % (36.0-46.0); Hemoglobin 14.1 g/dL (12.2-16.2); Lymphocytes # (auto) 1.9 10 ^3/uL (0.4-5.4); Lymphocytes % (auto) 15.6 % (10.0-50.0); Mean Corpuscular Hemoglobin 29.9 pg (28.0-32.0); Mean Corpuscular Hgb Conc. 32.4 g/dL (32.0-36.0); Mean Corpuscular Volume 92.3 fL (80.0-100.0); Monocytes # (auto) 0.7 10 ^3/uL (0-1.3); Monocytes % (auto) 5.7 % (0.0-12.0); Neutrophils # (auto) 9.4 10 ^3/uL (1.6-8.6); Neutrophils % (auto) 78.4 % (37.0-80.0); Nucleated Red Blood Cells % 0.1 %; Red Blood Cells 4.71 10^6/uL (4.0-5.20); Red Cell Distribution Width 14.4 % (11.8-14.3)
[2023-05-13 11:39] LABS: Albumin 4.5 g/dL (3.2-4.8); Alkaline Phosphatase 146 U/L (46-116); Anion Gap 14 (5-15); Aspartate Aminotransferase 25 U/L (13-40); BUN/Creatinine Ratio 11.6 (10.0-20.0); Blood Urea Nitrogen 8 mg/dL (9-23); Calcium 10.3 mg/dL (8.5-10.1); Carbon Dioxide 19 mmol/L (20-30); Chloride 103 mmol/L (98-107); Glucose 139 mg/dL (74-106); Potassium 3.5 mmol/L (3.5-5.1); Sodium 136 mmol/L (136-145)
[2023-05-13 11:40] LABS: Bilirubin, Total 0.3 mg/dL (0.2-1.0); Total Protein 6.8 g/dL (5.7-8.2)
[2023-05-13 11:48] LABS: Alanine Aminotransferase 9 U/L (7-40)
[2023-05-13 11:50] VITALS: O2SAT 99
[2023-05-13] MEDS ORDERED: NAP500T PO (11:50)
[2023-05-13] MEDS ORDERED: CYCL-611 PO (11:50)
[2023-05-13 12:00] VITALS: BP 164/80; PULSE 83; RESP 21; O2SAT 99
[2023-05-13] MEDS ORDERED: KETOROLAC TROMETH 30 MG/ML 1ML VIAL IV ONE (12:45)
== END 2023-05-13 13:19 | disposition home or self-care (01) ==
LOC: EDBD 10:07 → EDUNIT# 10:07 → ER 10:07
DX: S33.5XXA Sprain of ligaments of lumbar spine, initial encounter (principal); M79.10 Myalgia, unspecified site; I10 Essential (primary) hypertension; K21.9 Gastro-esophageal reflux disease without esophagitis; E78.5 Hyperlipidemia, unspecified; E03.9 Hypothyroidism, unspecified; Z90.49 Acquired absence of other specified parts of digestive tract; Z90.89 Acquired absence of other organs; Z90.710 Acquired absence of both cervix and uterus; Z79.899 Other long term (current) drug therapy; W18.39XA Other fall on same level, initial encounter; Y93.89 Activity, other specified; Y92.89 Other specified places as the place of occurrence of the external cause; Y99.8 Other external cause status
CPT/HCPCS: 36415; 72131; 80053; 85025; 96374; 96375; 99285; J1885; J2405; J3010

== ENCOUNTER 2024-04-21 17:25 | Emergency (ER) | payer OTHER ==
[~2024-04-21] VITALS: Ht 160 cm; Wt 68.1 kg
[~2024-04-21 17:25] MED LIST changes: +CYCL-611 PO; +NAP500T PO
[2024-04-21 17:35] VITALS: BP 170/54; PULSE 94
[2024-04-21] MEDS ORDERED: predniSONE 20 MG TAB PO ONE (18:15)
--- NOTE | 2024-04-21 18:15 | ED.PDOC ---
History of Present Illness HPI Comments 73-year-old female complains of cough, myalgias, malaise and fatigue for the last 4 days. Patient states that she started feeling a little short of breath over the last 1 day. Patient was given breathing treatment by the ambulance and states that this helped. Patient denies smoking. Patient states that she does not have an inhaler or oxygen at home. Chief Complaint: Flu like Time Seen by MD: 18:00 Primary Care Provider: NICOLÁS Allergies: Coded Allergies: NO KNOWN ALLERGIES (Unverified , 03/29/10) Home Meds Active Scripts Azithromycin (Azithromycin) 500 Mg Tab, 1 TAB PO DAILY for 7 Days, #7 TAB Prov:SOHAIL LIVINGSTON MD 04/21/24 Prednisone (Prednisone) 20 Mg Tab, 20 MG PO BID for 5 Days, #10 TAB Prov:SOHAIL LIVINGSTON MD 04/21/24 Albuterol Sulfate (Albuterol Sulfate Hfa) 108 Mcg/Act Aer, 108 MCG IN Q6HP PRN for 10 Days, #1 AER Prov:SOHAIL LIVINGSTON MD 04/21/24 Naproxen (NAPROSYN TABLET) 500 Mg Tb, 1 TAB PO BID PRN, #20 TAB 1 Refill Prov:KASH RAMOS MD 05/13/23 Cyclobenzaprine HCl (Cyclobenzaprine Hydrochlo) 10 Mg Tab, 10 MG PO TID PRN, #21 TAB Prov:KASH RAMOS MD 05/13/23 Trazodone HCl (Trazodone Hydrochloride) 50 Mg Tab, 50 MG PO QHSP PRN, #20 TAB Prov:RYAN BARONE MD 10/27/20 Gabapentin (Gabapentin) 300 Mg Cap, 600 MG PO TID, #90 CAP Prov:RYAN BARONE MD 10/27/20 Ondansetron (Zofran) 4 Mg Tab, 1 TAB PO Q6HR PRN, #20 TAB Prov:RYAN BARONE MD 10/26/20 Reported Medications Hydrocodone-Acetaminophen (Hydrocodone Bitartrate/AC 10-325 mg) 1 Tab Tab, 1 TAB PO Q6HP, TAB 10/26/20 Gabapentin (Gabapentin) 600 Mg Tab, TAB PO 10/26/20 Metoprolol Succinate (Metoprolol Succinate Er) 50 Mg Tab, 50 MG PO DAILY for 30 Days, MG 10/26/20 Omeprazole (Gnp Omeprazole) 20 Mg Tab, 40 MG PO DAILY, TAB 10/26/20 Amlodipine Besylate (Amlodipine Besylate) 5 Mg Tab, 10 MG PO DAILY for 30 Days, MG 10/26/20 Atorvastatin Calcium (ATORVASTATIN CALCIUM) 40 Mg Tab, 1 TAB PO DAILY, #30 TAB 5 Refills 10/26/20 Duloxetine Hcl (Cymbalta) 60 Mg Cap, 1 CAP PO DAILY, #90 CAP 3 Refills 10/26/20 Levothyroxine Sodium (Synthroid) 88 Mcg Tab, 1 TAB PO DAILY, #30 TAB 5 Refills 10/13/20 Methocarbamol (Methocarbamol) 750 Mg Tab, 750 MG PO BID, TAB 10/13/20 Information Source: Patient Mode of Arrival: EMS Severity: Moderate Timing: Days Duration: Days Prehospital treatment: Beta-Agonist Tx Past Medical History PAST MEDICAL HISTORY: Anxiety, Depression, GERD, High Lipids, HTN, PUD, Thyroid Surgical History: Cholecystectomy, Hysterectomy, 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 REDUCING SALON 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: No Pertinent REDUCING SALON ATTENDANT History Family History Family History: No family hx of Cancer Social History Smoker: Non-Smoker Alcohol: Denies ETOH Use Drugs: Denies Drug Use Lives In: Home Constitutional: reports: chills, fatigue, malaise, weakness Respiratory: reports: cough, shortness of breath, SOB with excertion, wheezing All Other Systems: Reviewed and Negative Physical Exam General Appearance: Mild Distress, Thin HEENT: Normal ENT Inspection, Pharynx Normal, TMs Normal Neck: Full Range of Motion, Non-Tender, Normal, Normal Inspection Respiratory: Crackles, Wheezing Cardiovascular: No Edema, No JVD, No Murmur, No Gallop, Normal Peripheral Pulses, Regular Rate/Rhythm Breast Exam: Deferred Gastrointestinal: No Organomegaly, Non Tender, No Pulsatile Mass, Normal Bowel Sounds, Soft Genitalia: Deferred Pelvic: Deferred Rectal: Deferred Extremities: No calf tenderness, Normal capillary refill, Normal inspection, Normal range of motion, Non-tender, No pedal edema Musculoskeletal : Apperance: Normal Neurologic: Alert, animal pathologist II-XII nml as Tested, No Motor Deficits, Normal Affect, Normal Mood, No Sensory Deficits Cerebellar Function: Normal Reflexes: Normal Skin: Dry, Normal Color, Warm Lymphatic: No Adenopathy Was a procedure done? Was a procedure done?: No Differential Dx Considerations may include: Differential diagnosis includes but is not limited to: asthma, pneumonia, congestive heart failure, pleural effusion, empyema, pulmonary embolus, and others X-Ray, Labs, Meds, VS Vital Signs Date Time Temp Pulse Resp B/P (MAP) Pulse Ox O2 Delivery O2 Flow Rate FiO2 04/21/24 18:28 16 94 Room Air* 0 21 04/21/24 17:35 99.2 94 18 170/54 (92) 99 Current Medications Medications (Trade) Dose Ordered Sig/Shaila Route Start Time Stop Time Status Last Admin Albuterol (Ventolin Medneb) 5 mg ONCE ONCE NEB 04/21/24 18:15 04/21/24 18:16 DC 04/21/24 18:28 Ipratropium [place] (Atrovent Medneb) 0.5 mg ONCE ONCE NEB 04/21/24 18:15 04/21/24 18:16 DC 04/21/24 18:28 Time of 1ST Reevaluation: 18:14 Reevaluation 1ST: Unchanged Time of 2ND Reevaluation: 19:27 Reevaluation 2ND: Improved Patient Education/Counseling: Diagnosis, Treatment Family Education/Counseling: No Family Present Departure 1 Departure Time of Disposition: 19:27 (I personally reviewed and interpreted the lab and imaging studies. I reviewed the results with the patient and using shared decision making we decided on outpatient management with closed outpatient follow up. I did notify the patient that there was a risk that their condition could worsen and they agreed to immediately return to the Emergency Department for any worsening symptoms or concerns. ) Impression: Primary Impression: Upper respiratory infection Additional Impression: Bronchospasm Disposition: 01 HOME / SELF CARE / HOMELESS Condition: Stable e-Prescriptions Azithromycin (Azithromycin) 500 Mg Tab 1 TAB PO DAILY for 7 Days, #7 TAB Prov: SOHAIL LIVINGSTON MD 04/21/24 Prednisone (Prednisone) 20 Mg Tab 20 MG PO BID for 5 Days, #10 TAB Prov: SOHAIL LIVINGSTON MD 04/21/24 Albuterol Sulfate (Albuterol Sulfate Hfa) 108 Mcg/Act Aer 108 MCG IN Q6HP PRN for 10 Days, #1 AER Prov: SOHAIL LIVINGSTON MD 04/21/24 Discharged With: Self Critical Care Note Critical Care Time?: No Stability Stability form required: No Heart Score Heart Score: Heart Score Response (Comments) Value History Slightly Suspicious 0 EKG N/A 0 Age >65 2 Risk Factors 1 or 2 risk factors 1 Troponin N/A 0 Total 3 SOHAIL LIVINGSTON MD Apr 21, 2024 18:15
[2024-04-21 18:28] VITALS: RESP 16; O2SAT 94
[2024-04-21] MEDS: ALBUTEROL SULF 2.5 MG/0.5ML(0.5%) NEB SOLN NEB ONE (18:28)
[2024-04-21] MEDS: IPRATROPIUM BROM 0.5 MG/2.5ML INH SOL NEB ONE (18:28)
--- NOTE | 2024-04-21 18:30 | DVH ---
CLINICAL INFORMATION: 73 years old, Female; shortness of breath, cough. TECHNIQUE: Single AP portable chest radiograph was obtained. COMPARISON: CHEST PORTABLE on DOS: 02/14/21, CHEST PORTABLE on DOS: 10/25/20 FINDINGS: Lungs: Ill-defined opacities in the lung bases, likely atelectasis. Developing consolidation in the r ight lung base not excluded. No pneumothorax or pleural effusion. Cardiac: Heart size is within normal limits. Pulmonary vasculature: Unremarkable. Mediastinum/josep: Unremarkable. Bones: No acute osseous abnormality identified. Scoliotic curvature in the thoracolumbar spine, conve x left at the thoracolumbar junction convex right at the midthoracic spine. Other: No other significant findings. IMPRESSION: Ill-defined opacities in the lung bases, likely atelectasis. Developing consolidation in the right ani ng base not excluded in the appropriate clinical setting. Correlate with clinical findings.
[2024-04-21] MEDS ORDERED: AZIT500T66 PO (19:10)
[2024-04-21] MEDS ORDERED: PRED20TA2 PO (19:10)
[2024-04-21] MEDS ORDERED: ALBU108A5 IN (19:10)
[2024-04-21] MEDS ORDERED: AZITHROMYCIN 250 MG TAB PO ONE (19:15)
== END 2024-04-21 23:26 | disposition home or self-care (01) ==
LOC: ER 17:25 → EDBD 17:25 → ER 22:03
DX: J06.9 Acute upper respiratory infection, unspecified (principal); J98.01 Acute bronchospasm; K21.9 Gastro-esophageal reflux disease without esophagitis; E78.5 Hyperlipidemia, unspecified; I10 Essential (primary) hypertension; E03.9 Hypothyroidism, unspecified; Z79.899 Other long term (current) drug therapy; Z90.49 Acquired absence of other specified parts of digestive tract; Z90.710 Acquired absence of both cervix and uterus; Z90.89 Acquired absence of other organs
CPT/HCPCS: 71045; 94640

== ENCOUNTER 2024-04-28 12:49 | Emergency (ER) | payer OTHER ==
[~2024-04-28] VITALS: Ht 160 cm; Wt 50.6 kg
[~2024-04-28 12:49] MED LIST changes: +ALBU108A5 IN; +AZIT500T66 PO; +PRED20TA2 PO
--- NOTE | 2024-04-28 13:32 | ECG ---
[facility] Test Date: 2024-04-28 Test Time: 13:16:43 Pat Name: JESSICA RIVERA Department: ER Room: Gender: F Survey Operations Director: CYNTHIA : 1950 Requested By: PHILIP HOOPER Order Number: [id number] Reading MD: Measurements Intervals Heth Rate: 97 P: 0 MS: 44 QRS: 51 QRSD: 82 T: 56 QT: 355 QTc: 451 Interpretive Statements Sinus rhythm Short MS interval Consider left ventricular hypertrophy Artifact in lead(s) I,II,aVR,aVL,aVF,V1 Please click the below link to view image of tracing.
[2024-04-28] MEDS: ALBUTEROL SULF 2.5 MG/0.5ML(0.5%) NEB SOLN NEB ONE (14:37)
[2024-04-28] MEDS: IPRATROPIUM BROM 0.5 MG/2.5ML INH SOL NEB ONE (14:37)
[2024-04-28] MEDS: methylPREDNISolone SOD SUCC 125 MG/2 ML VL IV ONE (14:47)
[2024-04-28] MEDS: MAGNESIUM SULFATE 1GM/100ML 100 ML IV ONE (14:47)
--- NOTE | 2024-04-28 14:49 | ED.PDOC ---
SOB-HPI HPI Comments 73 year old female presents to the ED with a chief complaint of shortness of breath onset 1 week. Patient states was seen in the ED about 1 week ago, was diagnosed with Pneumonia and was given antibiotics. Patient has not noticed improvement, is currently experiencing shortness of breath, cough, generalized weakness, fatigue. PMHx HTN, DM, anxiety, GERD, HLD. Denies chest pain, headache, dizziness, nausea, vomiting, diarrhea. No other symptoms or modifying factors present at this time. Chief Complaint: Shortness of Breath Time Seen by MD: 13:45 Primary Care Provider: NICOLÁS Reviewed notes: Medications, Allergies Information Source: Patient Mode of Arrival: Ambulatory Severity: Moderate Timing: Weeks Duration: Since onset Context: At Rest PE Risk Factors: None History of: Anxiety Prehospital treatment: None Modifying Factors: Nothing Associated Signs and Symptoms: Cough Radiation: No Radiation If cough with SOB: Non-Productive Past Medical History PAST MEDICAL HISTORY: Anxiety, Depression, DM, GERD, High Lipids, HTN, PUD, Thyroid Surgical History: Cholecystectomy, Hysterectomy, 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 OD GRINDER OPERATOR History: No Pertinent OD GRINDER OPERATOR History Family History Family History: No family hx of Cancer Social History Smoker: Non-Smoker Alcohol: Denies ETOH Use Drugs: Denies Drug Use Lives In: Home Constitutional: reports: chills, fatigue, weakness; denies: diaphoresis, fever, malaise, sweats, others EENTM: denies: blurred vision, double vision, ear bleeding, ear discharge, ear drainage, ear pain, ear ringing, eye pain, eye redness, hearing loss, mouth pain, mouth swelling, nasal discharge, nose bleeding, nose congestion, nose pain, photophobia, tearing, throat pain, throat swelling, voice changes, others Respiratory: reports: cough, shortness of breath; denies: hemoptysis, orthopnea, SOB at rest, SOB with excertion, stridor, wheezing, others Cardiovascular: denies: chest pain, dizzy spells, diaphoresis, Dyspnea on exertion, edema, irregular heart beat, left arm pain, lightheadedness, palp itations, PND, syncope, others Gastrointestinal: denies: abdomen distended, abdominal pain, blood streaked bowels, constipated, diarrhea, dysphagia, difficulty swallowing, hematemesis, melena, nausea, poor appetite, poor fluid intake, rectal bleeding, rectal pain, vomiting, others Genitourinary: denies: abnormal vagina bleeding, burning, dyspareunia, dysuria, flank pain, frequency, hematuria, incontinence, pain, , vagina discharge, urgency, others Neurological: denies: dizziness, fainting, headache, left sided numbness, left sided weakness, numbness, paresthesia, pre-existing deficit, right sided numbness, right sided weakness, seizure, speech problems, tingling, tremors, weakness, others Musculoskeletal: denies: back pain, gout, joint pain, joint swelling, muscle pain, muscle stiffness, neck pain, others Integumetry: denies: bruises, change in color, change in hair/nails, dryness, laceration, lesions, lumps, rash, wounds, others Allergic/Immunocompromised: denies: Difficulty Healing, Frequent Infections, Hives, Itching, others Hematologic/Lymphatic: denies: anemia, blood clots, easy bleeding, easy br uising, swollen glands, others Endocrine: denies: excessive hunger, excessive sweating, excessive thirst, excessive urination, flushing, intolerance to cold, intolerance to heat, unexplained weight gain, unexplained weight loss, others Psychiatric: denies: anxiety, bipolar disorder, depression, hopeless, panic disorder, schizophrenia, sleepless, suicidal, others All Other Systems: Reviewed and Negative Physical Exam General Appearance: Moderate Distress HEENT: Normal ENT Inspection, Pharynx Normal, TMs Normal Neck: Full Range of Motion, Non-Tender, Normal, Normal Inspection Respiratory: Other (Coarse breath sounds) Cardiovascular: No Edema, No JVD, No Murmur, No Gallop, Normal Peripheral Pulses, Regular Rate/Rhythm Breast Exam: Deferred Gastrointestinal: No Organomegaly, Non Tender, No Pulsatile Mass, Normal Bowel Sounds, Soft Genitalia: Deferred Pelvic: Deferred Rectal: Deferred Extremities: No calf tenderness, Normal capillary refill, Normal inspection, Normal range of motion, Non-tender, No pedal edema Musculoskeletal : Apperance: Normal Neurologic: Alert, case maker II-XII nml as Tested, No Motor Deficits, Normal Affect, Normal Mood, No Sensory Deficits Cerebellar Function: Normal Reflexes: Normal Skin: Dry, Normal Color, Warm Peripheral Pulses: 3+ Radial (R), 3+ Radial (L) Lymphatic: No Adenopathy Was a procedure done? Was a procedure done?: No Differential Dx Differential Diagnosis: Anxiety, Asthma, Bronchitis, CHF, COPD X-Ray, Labs, Meds, VS Vital Signs Date Time Temp Pulse Resp B/P (MAP) Pulse Ox O2 Delivery O2 Flow Rate FiO2 04/28/24 14:57 90 20 153/92 (112) 98 04/28/24 14:37 18 93 Room Air* 0 21 04/28/24 13:16 97 04/28/24 13:14 98.5 102 20 132/68 (89) 96 04/28/24 13:13 20 96 Room Air* 0 21 Lab Test 04/28/24 14:53 Range/Units White Blood Count 16.5 H 4.4-10.8 10^3/uL Red Blood Count 4.36 4.0-5.20 10^6/uL Hemoglobin 11.2 L 12.2-16.2 g/dL Hematocrit 35.1 L 36.0-46.0 % Mean Corpuscular Volume 80.7 80.0-100.0 fL Mean Corpuscular Hemoglobin 25.8 L 28.0-32.0 pg Mean Corpuscular Hemoglobin Concent 31.9 L 32.0-36.0 g/dL Red Cell Distribution Width 16.4 H 11.8-14.3 % Platelet Count 585 H 140-450 10^3/uL Mean Platelet Volume 7.3 6.9-10.8 fL Neutrophils (%) (Auto) 91.2 H 37.0-80.0 % Lymphocytes (%) (Auto) 6.7 L 10.0-50.0 % Monocytes (%) (Auto) 1.9 0.0-12.0 % Eosinophils (%) (Auto) 0.0 0.0-7.0 % Basophils (%) (Auto) 0.2 0.0-2.0 % Neutrophils # (Auto) 15.1 H 1.6-8.6 10 ^3/uL Lymphocytes # (Auto) 1.1 0.4-5.4 10 ^3/uL Monocytes # (Auto) 0.3 0-1.3 10 ^3/uL Eosinophils # (Auto) 0 0-0.8 10 ^3/uL Basophils # (Auto) 0 0-0.2 10 ^3/uL Nucleated Red Blood Cells 0.1 % Sodium Level 135 L 136-145 mmol/L Potassium Level 4.1 3.5-5.1 mmol/L Chloride Level 99 98-107 mmol/L Carbon Dioxide Level 27 20-31 mmol/L Anion Gap 9 5-15 Blood Urea Nitrogen 18 9-23 mg/dL Creatinine 0.87 0.550-1.02 mg/dL Glomerular Filtration Rate Calc 70 >90 mL/min BUN/Creatinine Ratio 20.7 H 10.0-20.0 Serum Glucose 114 H 74-106 mg/dL Calcium Level 9.8 8.7-10.4 mg/dL Troponin I High Sensitivity 3 L </=34 ng/L B-Type Natriuretic Peptide 115.41 0-100 pg/mL Current Medications Medications (Trade) Dose Ordered Sig/Shaila Route Start Time Stop Time Status Last Admin Methylprednisolone Sodium Succinate (Solu Medrol) 125 mg ONCE ONCE IV 04/28/24 14:30 04/28/24 14:31 DC 04/28/24 14:47 Albuterol (Ventolin Medneb) 5 mg ONCE ONCE NEB 04/28/24 14:30 04/28/24 14:31 DC 04/28/24 14:37 Ipratropium [place] (Atrovent Medneb) 0.5 mg ONCE ONCE NEB 04/28/24 14:30 04/28/24 14:31 DC 04/28/24 14:37 Magnesium Sulfate/ Dextrose 100 ml @ 100 mls/hr ONCE ONCE IV 04/28/24 14:30 04/28/24 15:29 DC 04/28/24 14:47 Azithromycin 250 ml @ 125 mls/hr ONCE ONCE IV 04/28/24 16:00 04/28/24 17:59 04/28/24 16:53 Patient alert. History of COPD. She is not on oxygen. Vitals stable. Was given breathing treatment. Was given steroid. Was given magnesium. Reviewed her previous visit. Spoke with [facility] physician. Her saturation pristine on room air. She is not using her accessory muscles. [facility] physician will follow the patient. Explained to the patient. Time of 1ST Reevaluation: 14:15 Reevaluation 1ST: Unchanged Patient Education/Counseling: Diagnosis, Treatment, Prognosis Family Education/Counseling: No Family Present Departure 1 Departure Time of Disposition: 14:52 Impression: Primary Impression: COPD exacerbation Disposition: ADMITTED INPATIENT Admit to: Med Surg Condition: Guarded e-Prescriptions Albuterol Sulfate (Albuterol Sulfate) 0.083 % Neb 1 VIAL NEB Q4HPRN, #50 VIAL Prov: ANGELLA SOTO MD 04/28/24 Albuterol Sulfate (Albuterol Sulfate Hfa) 108 Mcg/Act Aer 108 MCG IN Q4HP PRN, #1 AER Prov: ANGELLA SOTO MD 04/28/24 Amoxicillin & Pot Clavulanate (AUGMENTIN TABLET) 875 Mg Tb 875 MG PO BID for 7 Days, #14 TAB Prov: ANGELLA SOTO MD 04/28/24 Critical Care Note Critical Care Time?: No Stability Stability form required: No Heart Score Heart Score: Heart Score Response (Comments) Value History N/A 0 EKG N/A 0 Age N/A 0 Risk Factors N/A 0 Troponin N/A 0 Total 0 I personally scribed for PHILIP HOOPER MD ([email or web address]) on 04/28/24 at 14:49. Electronically submitted by Anjelica Clancy ([email or web address]). PHILIP HOOPER MD Apr 28, 2024 14:49
[2024-04-28 15:28] LABS: Basophils # (auto) 0 10 ^3/uL (0-0.2); Basophils % (auto) 0.2 % (0.0-2.0); Eosinophils # (auto) 0 10 ^3/uL (0-0.8); Mean Corpuscular Hemoglobin 25.8 pg (28.0-32.0); Mean Corpuscular Hgb Conc. 31.9 g/dL (32.0-36.0); Neutrophils % (auto) 91.2 % (37.0-80.0); White Blood Cell 16.5 10^3/uL (4.4-10.8)
[2024-04-28 15:31] LABS: Hematocrit 35.1 % (36.0-46.0); Hemoglobin 11.2 g/dL (12.2-16.2); Lymphocytes # (auto) 1.1 10 ^3/uL (0.4-5.4); Lymphocytes % (auto) 6.7 % (10.0-50.0); Mean Corpuscular Volume 80.7 fL (80.0-100.0); Monocytes # (auto) 0.3 10 ^3/uL (0-1.3); Monocytes % (auto) 1.9 % (0.0-12.0); Neutrophils # (auto) 15.1 10 ^3/uL (1.6-8.6); Nucleated Red Blood Cells % 0.1 %; Platelet Count (auto) 585 10^3/uL (140-450); Red Blood Cells 4.36 10^6/uL (4.0-5.20); Red Cell Distribution Width 16.4 % (11.8-14.3)
[2024-04-28 15:35] LABS: Chloride 99 mmol/L (98-107); Potassium 4.1 mmol/L (3.5-5.1)
[2024-04-28 15:36] LABS: Anion Gap 9 (5-15); Calcium 9.8 mg/dL (8.7-10.4); Carbon Dioxide 27 mmol/L (20-31)
[2024-04-28 15:41] LABS: BUN/Creatinine Ratio 20.7 (10.0-20.0); Blood Urea Nitrogen 18 mg/dL (9-23)
[2024-04-28 15:49] LABS: Glucose 114 mg/dL (74-106); Sodium 135 mmol/L (136-145)
[2024-04-28] MEDS ORDERED: LEVO500T91 PO (16:38)
[2024-04-28] MEDS: AZITHROMYCIN 500MG/ 250ML 250 ML IV ONE (16:53)
[2024-04-28] MEDS ORDERED: ALBU108A5 IN (17:21)
[2024-04-28] MEDS ORDERED: AUG875T PO (17:21)
[2024-04-28] MEDS ORDERED: ALBU0.084 NEB (17:26)
[2024-04-28] MEDS ORDERED: METH4PAK PO (17:43)
[2024-04-28] MEDS: HYDROcodone-ACET 10/325MG TAB PO ONE (17:49)
[2024-04-28 17:54] VITALS: BP 149/89
[2024-04-28 17:55] VITALS: PULSE 94; RESP 16; O2SAT 94
--- NOTE | 2024-04-28 20:19 | DVH ---
CHEST RADIOGRAPH Indication: pna Technique: Single frontal view of the chest was obtained Comparison: XY CHEST XRAY 1 VIEW on DOS: 04/21/24, CHEST PORTABLE on DOS: 02/14/21, CHEST PORTABLE on DOS: 10/25/20 FINDINGS: Lines and Tubes: None Lungs: Clear Pleura: No effusion. No pneumothorax. Cardiomediastinal contours: Unremarkable Bones: Unremarkable IMPRESSION: 1. Clear lungs.
--- NOTE | 2024-04-28 21:56 | DVHDS2 ---
New Physician D'charge PN Admitting Diagnosis Admitting Diagnosis sob Discharge Diagnosis uri copd exacerbation Operations or Procedures none Reason(s) For Hospitalization Surgery Hospital Course 73 F comes to ER for SOB over the last day. She was a previous smoker but no long smokes. She was seen in the ER on 04/21/24 here and was diagnosed with PNA and prescribed PO Abx along with PO steroids and discharged home. She returns again today with SOB however her o2 sats on room air were 96%. Her wbc was 16k but she has been taking prednisone at home for the last several days. Chemistry panel was normal. CXR revealed clear lungs and she was never febrile or had increased work of breathing. She was given IV Abx, IV steroids and multiple neb treatments and her condition improved. She will be discharged home and with complete a PO course of Abx and a nebulizer machine with solution has been ordered via [facility]. She remains on room air with sats >90% in no distress. She will be dc home with outpt follow up with her pcp. Instructed to return to ER or call 911 should her symptoms, Both the patient and daughter verbalized understanding. Treatment Plan Discharge Condition of Discharge Good Disposition Home Discharge Instructions Diet: Cardiac 2g Na,low cholest Activity: No Restrictions, As Tolerated Medications: see med sheet Follow Up Care Follow Up/Referral: pcp Discharge Statement: "Patient was advised to return to the ER or call 911 if any headaches, dizziness, shortness of breath, chest pain, abdominal pain, bleeding, fevers, or worsening of medical condition. Patient was counseled about treatment plan, medications, possible side effects, patientverbalized understanding. All questions were answered to the best of my ability. This discharge took greater then 30 minutes in planning, reviewing do cumentation, counseling the patient, and discussing with other team members." ANGELLA SOTO MD Apr 28, 2024 21:56
== END 2024-04-28 18:04 | disposition admitted as inpatient to this hospital (09) ==
LOC: ER 12:56
DX: J44.1 Chronic obstructive pulmonary disease with (acute) exacerbation (principal); E11.9 Type 2 diabetes mellitus without complications; E78.5 Hyperlipidemia, unspecified; I10 Essential (primary) hypertension; K21.9 Gastro-esophageal reflux disease without esophagitis; Z87.11 Personal history of peptic ulcer disease; Z87.891 Personal history of nicotine dependence; Z90.49 Acquired absence of other specified parts of digestive tract; Z90.710 Acquired absence of both cervix and uterus
CPT/HCPCS: 36415; 71045; 80048; 83880; 84484; 85025; 93005; 94640; 96365; 96367; 96375; 99285; J0456; J2919; J3475

== ENCOUNTER 2024-09-17 19:51 | Inpatient (IN) | payer OTHER ==
[~2024-09-17] VITALS: Ht 162.6 cm; Wt 74.8 kg
[2024-09-17] MEDS: ONDANSETRON HCL 4 MG/2 ML VIAL IV ONE ×2 (01:36→23:59)
[~2024-09-17 19:51] MED LIST changes: +ALBU0.084 NEB; +AUG875T PO; +METH4PAK PO
[2024-09-17 20:44] LABS: Basophils # (auto) 0.1 10 ^3/uL (0-0.2); Eosinophils # (auto) 0.1 10 ^3/uL (0-0.8); Hemoglobin 10.8 g/dL (12.2-16.2); Neutrophils # (auto) 3.3 10 ^3/uL (1.6-8.6)
[2024-09-17 20:47] LABS: Basophils % (auto) 1.1 % (0.0-2.0); Eosinophils % (auto) 0.8 % (0.0-7.0); Hematocrit 34.8 % (36.0-46.0); Lymphocytes # (auto) 2.9 10 ^3/uL (0.4-5.4); Lymphocytes % (auto) 43.8 % (10.0-50.0); Mean Corpuscular Hemoglobin 24.5 pg (28.0-32.0); Mean Corpuscular Volume 78.9 fL (80.0-100.0); Monocytes # (auto) 0.4 10 ^3/uL (0-1.3); Monocytes % (auto) 5.6 % (0.0-12.0); Neutrophils % (auto) 48.7 % (37.0-80.0); Nucleated Red Blood Cells % 0.1 %; Platelet Count (auto) 294 10^3/uL (140-450); Red Blood Cells 4.41 10^6/uL (4.0-5.20); Red Cell Distribution Width 16.7 % (11.8-14.3); White Blood Cell 6.7 10^3/uL (4.4-10.8)
--- NOTE | 2024-09-17 20:49 | ED.PDOC ---
History of Present Illness HPI Comments This is a 74-year-old female who comes in with chief complaint of abdominal pain. The patient states that she has had this back in the abdominal increasing since this morning. The patient is also complaining of some constipation. The patient is also having some nausea and vomiting. The patient called EMS and was transferred to our facility. Chief Complaint: Body Pain Time Seen by MD: 19:55 Primary Care Provider: NICOLÁS Reviewed Notes: Nurses Notes, Public Speaking Teacher Notes, Medications, Allergies (No allergies to medications) Allergies: Coded Allergies: NO KNOWN ALLERGIES (Unverified , 03/29/10) Home Meds Active Scripts Methylprednisolone (Medrol Dosepak) 4 Mg Jimenez, 4 MG PO UD, #21 TAB UAD Prov:ANGELLA SOTO MD 04/28/24 Albuterol Sulfate (Albuterol Sulfate) 0.083 % Neb, 1 VIAL NEB Q4HPRN, #50 VIAL Prov:ANGELLA SOTO MD 04/28/24 Albuterol Sulfate (Albuterol Sulfate Hfa) 108 Mcg/Act Aer, 108 MCG IN Q4HP PRN, #1 AER Prov:ANGELLA SOTO MD 04/28/24 Amoxicillin & Pot Clavulanate (AUGMENTIN TABLET) 875 Mg Tb, 875 MG PO BID for 7 Days, #14 TAB Prov:ANGELLA SOTO MD 04/28/24 Azithromycin (Azithromycin) 500 Mg Tab, 1 TAB PO DAILY for 7 Days, #7 TAB Prov:SOHAIL LIVINGSTON MD 04/21/24 Prednisone (Prednisone) 20 Mg Tab, 20 MG PO BID for 5 Days, #10 TAB Prov:SOHAIL LIVINGSTON MD 04/21/24 Albuterol Sulfate (Albuterol Sulfate Hfa) 108 Mcg/Act Aer, 108 MCG IN Q6HP PRN for 10 Days, #1 AER Prov:SOHAIL LIVINGSTON MD 04/21/24 Naproxen (NAPROSYN TABLET) 500 Mg Tb, 1 TAB PO BID PRN, #20 TAB 1 Refill Prov:KASH RAMOS MD 05/13/23 Cyclobenzaprine HCl (Cyclobenzaprine Hydrochlo) 10 Mg Tab, 10 MG PO TID PRN, #21 TAB Prov:KASH RAMOS MD 05/13/23 Trazodone HCl (Trazodone Hydrochloride) 50 Mg Tab, 50 MG PO QHSP PRN, #20 TAB Prov:RYAN BARONE MD 10/27/20 Gabapentin (Gabapentin) 300 Mg Cap, 600 MG PO TID, #90 CAP Prov:RYAN BARONE MD 10/27/20 Ondansetron (Zofran) 4 Mg Tab, 1 TAB PO Q6HR PRN, #20 TAB Prov:RYAN BARONE MD 10/26/20 Reported Medications Hydrocodone-Acetaminophen (Hydrocodone Bitartrate/AC 10-325 mg) 1 Tab Tab, 1 TAB PO Q6HP, TAB 10/26/20 Gabapentin (Gabapentin) 600 Mg Tab, TAB PO 10/26/20 Metoprolol Succinate (Metoprolol Succinate Er) 50 Mg Tab, 50 MG PO DAILY for 30 Days, MG 10/26/20 Omeprazole (Gnp Omeprazole) 20 Mg Tab, 40 MG PO DAILY, TAB 10/26/20 Amlodipine Besylate (Amlodipine Besylate) 5 Mg Tab, 10 MG PO DAILY for 30 Days, MG 10/26/20 Atorvastatin Calcium (ATORVASTATIN CALCIUM) 40 Mg Tab, 1 TAB PO DAILY, #30 TAB 5 Refills 10/26/20 Duloxetine Hcl (Cymbalta) 60 Mg Cap, 1 CAP PO DAILY, #90 CAP 3 Refills 10/26/20 Levothyroxine Sodium (Synthroid) 88 Mcg Tab, 1 TAB PO DAILY, #30 TAB 5 Refills 10/13/20 Methocarbamol (Methocarbamol) 750 Mg Tab, 750 MG PO BID, TAB 10/13/20 Information Source: Patient Mode of Arrival: EMS Severity: Moderate Timing: Days Duration: Since onset Prehospital treatment: None Associated signs and symptoms Generalized weakness but no chest pain. 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 History Family History Family History: No family hx of Cancer Social History Smoker: Non-Smoker Alcohol: Denies ETOH Use Drugs: Denies Drug Use Lives In: Home Constitutional: denies: chills, diaphoresis, fatigue, fever, malaise, sweats, weakness, others EENTM: denies: blurred vision, double vision, ear bleeding, ear discharge, ear drainage, ear pain, ear ringing, eye pain, eye redness, hearing loss, mouth pain, mouth swelling, nasal discharge, nose bleeding, nose congestion, nose pain, photophobia, tearing, throat pain, throat swelling, voice changes, others Respiratory: denies: cough, hemoptysis, orthopnea, SOB at rest, shortness of breath, SOB with excertion, stridor, wheezing, others Cardiovascular: denies: chest pain, dizzy spells, diaphoresis, Dyspnea on exertion, edema, irregular heart beat, left arm pain, lightheadedness, palpitations, PND, syncope, others Gastrointestinal: reports: abdominal pain, constipated, nausea, vomiting; denies: abdomen distended, blood streaked bowels, diarrhea, dysphagia, difficulty swallowing, hematemesis, melena, poor appetite, poor fluid intake, rectal bleeding, rectal pain, others Genitourinary: denies: abnormal vagina bleeding, burning, dyspareunia, dysuria, flank pain, frequency, hematuria, incontinence, pain, , vagina discharge, urgency, others Neurological: denies: dizziness, fainting, headache, left sided numbness, left sided weakness, numbness, paresthesia, pre-existing deficit, right sided numbness, right sided weakness, seizure, speech problems, tingling, tremors, weakness, others Musculoskeletal: denies: back pain, gout, joint pain, joint swelling, muscle pain, muscle stiffness, neck pain, others Integumetry: denies: bruises, change in color, change in hair/nails, dryness, laceration, lesions, lumps, rash, wounds, others Allergic/Immunocompromised: denies: Difficulty Healing, Frequent Infections, Hives, Itching, others Hematologic/Lymphatic: denies: anemia, blood clots, easy bleeding, easy bruising, swollen glands, others Endocrine: denies: excessive hunger, excessive sweating, excessive thirst, excessive urination, flushing, intolerance to cold, intolerance to heat, unexplained weight gain, unexplained weight loss, others Psychiatric: denies: anxiety, bipolar disorder, depression, hopeless, panic disorder, schizophrenia, sleepless, suicidal, others Physical Exam General Appearance: Moderate Distress HEENT: Normal ENT Inspection, Pharynx Normal, TMs Normal Neck: Full Range of Motion, Non-Tender, Normal, Normal Inspection Respiratory: Chest Non-Tender, Lungs Clear, No Accessory Muscle Use, No Respiratory Distress, Normal Breath Sounds Cardiovascular: No Edema, No JVD, No Murmur, No Gallop, Normal Peripheral Pulses, Regular Rate/Rhythm Breast Exam: Deferred Gastrointestinal: Diffuse, No Organomegaly, No Pulsatile Mass, Normal Bowel Sounds, Soft, Tenderness Genitalia: Deferred Pelvic: Deferred Rectal: Deferred Extremities: No calf tenderness, Normal capillary refill, Normal inspection, Normal range of motion, Non-tender, No pedal edema Musculoskeletal : Apperance: Normal Neurologic: Alert, multi punch operator II-XII nml as Tested, No Motor Deficits, Normal Affect, Normal Mood, No Sensory Deficits Cerebellar Function: Normal Reflexes: Normal Skin: Dry, Normal Color, Warm Lymphatic: No Adenopathy Was a procedure done? Was a procedure done?: No EKG EKG : Pulse Rate (adult): 65 Gideon: Normal Cardiac Rhythm: NSR Block: None ST: Nonsp Differential Dx Considerations may include: Generalized weakness, electrolyte imbalance, dehydration, bowel obstruction UTI X-Ray, Labs, Meds, VS Vital Signs Date Time Temp Pulse Resp B/P (MAP) Pulse Ox O2 Delivery O2 Flow Rate FiO2 09/17/24 20:04 98.5 77 14 193/81 (118) 96 98.5 09/17/24 19:54 65 Lab Test 09/17/24 20:18 Range/Units White Blood Count Pending Red Blood Count Pending Hemoglobin Pending Hematocrit Pending Mean Corpuscular Volume Pending Mean Corpuscular Hemoglobin Pending Mean Corpuscular Hemoglobin Concent Pending Red Cell Distribution Width Pending Platelet Count Pending Mean Platelet Volume Pending Neutrophils (%) (Auto) Pending Lymphocytes (%) (Auto) Pending Monocytes (%) (Auto) Pending Basophils (%) (Auto) Pending Neutrophils # (Auto) Pending Lymphocytes # (Auto) Pending Monocytes # (Auto) Pending Sodium Level Pending Potassium Level Pending Chloride Level Pending Carbon Dioxide Level Pending Anion Gap Pending Blood Urea Nitrogen Pending Creatinine Pending Glomerular Filtration Rate Calc Pending BUN/Creatinine Ratio Pending Serum Glucose Pending Calcium Level Pending Total Bilirubin Pending Aspartate Amino Transferase (AST) Pending Alanine Aminotransferase (ALT) Pending Alkaline Phosphatase Pending Total Protein Pending Albumin Pending Lipase Pending The patient is being signed out to Dr. Infante Images Reviewed?: Images reviewed and evaluated by me Time of 1ST Reevaluation: 20:49 Reevaluation 1ST: Unchanged Patient Education/Counseling: Diagnosis, Treatment, Prognosis Family Education/Counseling: No Family Present Departure 1 Departure Time of Disposition: 20:49 Impression: Primary Impression: Acute abdominal pain Disposition: 30 STILL A PATIENT Condition: Fair Critical Care Note Critical Care Time?: No Stability Stability form required: Yes Unstable for transfer: ED Physician Assesment (Clinical assesment) Heart Score Heart Score: Heart Score Response (Comments) Value History N/A 0 EKG N/A 0 Age N/A 0 Risk Factors N/A 0 Troponin N/A 0 Total 0 NESSA GARCIA MD September 17, 2024 20:49
[2024-09-17 21:03] LABS: Albumin 4.7 g/dL (3.2-4.8); Alkaline Phosphatase 90 U/L (46-116); Anion Gap 12 (5-15); BUN/Creatinine Ratio 18.8 (10.0-20.0); Blood Urea Nitrogen 15 mg/dL (9-23); Calcium 9.7 mg/dL (8.7-10.4); Carbon Dioxide 24 mmol/L (20-31); Chloride 104 mmol/L (98-107); Glucose 92 mg/dL (74-106); Lipase 38 U/L (12-53); Potassium 3.8 mmol/L (3.5-5.1); Sodium 140 mmol/L (136-145); Total Protein 6.5 g/dL (5.7-8.2)
[2024-09-17 21:05] LABS: Alanine Aminotransferase < 9 U/L (7-40); Aspartate Aminotransferase 8 U/L (13-40); Bilirubin, Total 0.3 mg/dL (0.2-1.0)
--- NOTE | 2024-09-17 23:33 | DVH ---
CHEST RADIOGRAPH Indication: sob Technique: Single frontal view of the chest was obtained COMPARISON: XY CHEST PORTABLE on DOS: 04/28/24 FINDINGS: Lines and Tubes: None Lungs: Clear. Pleura: No effusion. No pneumothorax. Cardiomediastinal contours: Unremarkable Bones: S-shaped scoliosis. Partially visualized thoracolumbar spinal instrumentation. IMPRESSION: No acute disease. No appreciable change compared to the prior chest x-ray from April 2024.
[2024-09-17] MEDS: MORPHINE SULFATE 4 MG/ML SYR/VIAL IV ONE ×2 (23:56→23:59)
--- NOTE | 2024-09-18 00:37 | DVH ---
CLINICAL HISTORY: Abdominal pain TECHNIQUE: CT of the abdomen and pelvis was performed without intravenous contrast. This exam was per formed according to our departmental dose optimization program. Up-to-date CT equipment and radiation dose reduction techniques are utilized as appropriate. CTDI: 5.45 DLP: 262.3 WID: COMPARISON: CT ABD PELVIS WO CONTRAST on DOS: 02/14/21 FINDINGS: Lower Thorax: Mild Emphysema. Unchanged subpleural nodular scar in the left lower lobe on series 3, i mage 25. Lung bases are clear. Normal-sized heart. Hypodensity of the blood pool relative to the myoc ardium indicative of anemia. Liver and Biliary system: Prior cholecystectomy, otherwise unremarkable. Spleen: Unremarkable. Adrenal Glands and Kidneys: Normal adrenal glands. There is no hydronephrosis or nephrolithiasis. The re is right renal cortical scarring. Pancreas and Retroperitoneum: Pancreatic atrophy. No grossly enlarged retroperitoneal lymph nodes Aorta and Major Vessels: Aortoiliac vessels are normal in caliber with mild to moderate calcified ath erosclerotic plaque in the abdominal aorta. Bowel, Mesentery and Peritoneal space: Normal caliber small and large bowel. There is mild distal col onic diverticulosis. There is no free intraperitoneal air or fluid collection. Pelvis: Prior hysterectomy, otherwise unremarkable pelvis. Abdominal wall and Osseous Structures: Prior laminectomies at L2, L3, L4, and L5. Posterior spinal fi xation hardware with bilateral rods and transpedicular screws at L2 -S1. Interbody fusion at L2-L3, L3-L4, L4-L5, and L5-S1. Anterior spinal fixation at L5-S1. The hardware components are intact. Ther e is a chronic mild superior endplate compression fracture of T12. Moderate multilevel lower thoracic spondylosis. There is bony demineralization. There is left convexity scoliosis of the lower thoraci c and lumbar spine. Tiny sclerotic foci in the proximal femurs and pelvis, likely bone IMPRESSION: 1. No bowel obstruction, fluid collection, or free air. 2. Mild distal colonic diverticulosis. 3. Mild emphysema. 4. Anemia suggested. Correlate with CBC. 5. Lumbar spine postsurgical changes and spinal hardware.
--- NOTE | 2024-09-18 00:52 | ED.PDOC ---
Departure 1 Departure Time of Disposition: 00:51 (Patient presented with abdominal pain that was concerning for possible appendicits, gastritis, cholecystitis, colitis, gastroenteritis, or orther possible surgical emergency. Data: 1. I ordered and reviewed the result of at least 3 labs including a CBC, BMP, and Urinalysis. 2. I independently interpreted the following tests: CT Abdoment and Pelvis is concerning for benign abdomen .Risk:This patient has a high risk of morbidity due to further diagnostic testing or treatment and may suffer from an acute abdominal process disorder. Fortunately workup reveals benign abdomen and patient can be safely discharged to home with outpatient follow up.) Impression: Primary Impression: Acute abdominal pain Disposition: HOME / SELF CARE / HOMELESS Condition: Stable Additional Instructions: Your workup today was benign including normal labs and normal CT scan. For pain you can take the followinam: Ibuprofen 400mg with food Noon: Acetaminophen 1000mg 4pm: Ibuprofen 400mg with food 8pm: Acetaminophen 1000mg You should follow up with your regular doctor within one week to ensure you are doing better. If your symptoms worsen or you have any other concerns then please return to the ER. Discharged With: LAMONTE Enriquez MD September 18, 2024 00:52
[2024-09-18] MEDS: METOPROLOL SUCCINATE XL 50 MG TAB PO ONE (02:17)
[2024-09-18] MEDS: OXYCODONE W/ ACETAMINOPHEN 5/325MG TABLET PO ONE (04:30)
[2024-09-18] MEDS: hydrALAZINE HCL 20 MG/ML VL IV ONE (04:49)
--- NOTE | 2024-09-18 04:55 | DVH ---
EXAM: CT LS SPINE WO CONTRAST HISTORY: back pain COMPARISON: CT LS SPINE WO CONTRAST on DOS: 05/13/23, LS SPINE WO CONTRAST on DOS: 02/14/21 CTDIvol 41 mGy, DLP 856 mGy*cm. TECHNIQUE: Multiple axial CT images of the spine were obtained using bone algorithm. Axial and rodriguez l reformatting was done. Bone and soft tissue windows were reviewed. FINDINGS: No evidence of definite acute fracture, spinal dislocation, or significant appearing acute subluxatio n is seen. Scoliosis. Osteopenia. Multilevel degenerative changes of the spine. Multilevel posterior and anterio r lumbar spinal fixation hardware. Post laminectomy changes. Postsurgical changes create extensive be am and streak artifact limiting evaluation of adjacent structures. IMPRESSION: Limited examination, as above. No definite CT evidence of acute fracture or dislocation of the bony lumbar spine.
--- NOTE | 2024-09-18 05:15 | DVH ---
EXAM: CT Thoracic Spine Without Intravenous Contrast CLINICAL INDICATION: back pain TECHNIQUE: Axial computed tomography images of the thoracic spine without intravenous contrast. Thi s CT exam was performed using one or more of the following dose reduction techniques: automated expo sure control, adjustment of the mA and/or kV according to patient size, and/or use of iterative recon struction technique. CONTRAST: RADIATION DOSE: CTDIvol = 9.17 mGy, DLP = 401.96 mGy-cm COMPARISON: None FINDINGS: VERTEBRAE: S shape scoliosis of the thoracolumbar spine with severe endplate degenerative changes a nd disc disease of T7 to L1. Mild vertebral height loss T12. No acute fracture. DISCS/SPINAL CANAL/NEURAL FORAMINA: See above. SOFT TISSUES: Unremarkable. OTHER FINDINGS: . . IMPRESSION: Degenerative changes as above.
[2024-09-18] MEDS ORDERED: NITROGLYCERIN 0.4 MG SL TAB SL PRN (06:30)
[2024-09-18] MEDS: amLODIPine BESYLATE 5 MG TAB PO SCH (06:30)
[2024-09-18] MEDS ORDERED: traZODone HCL 50 MG TAB PO PRN (06:30)
[2024-09-18] MEDS ORDERED: MORPHINE SULFATE INJ 2 MG/ml SYRG IV PRN (06:30)
--- NOTE | 2024-09-18 07:02 | DVHHP2 ---
Admitting Diagnosis: CP, Hypertensive urgency History of Present Illness History Source: Patient, Family Exam Limitations: No limitations HPI Mrs. Rosa Galicia is a 74-year-old female with a history of hypertension, dM, HLD, GERD, anxiety, depression, COPD, Emphysema, cholecystecomy, hysterectomy, tonsillectomy who presents with chief complaint of abdominal pain. The patient states that she has had this back in the abdominal increasing since yesterday morning. The patient is also complaining of some constipation, and currently recently reports midsternal chest pain radiating to her back as a burning sensation. The patient is also reporting nausea. Patient was worked up in the ED for abdominal pain with no acute findings on the CT abdomen/pelvis. CT lumbar spine and thoracic spine with no acute findings. Patient with systolic blood pressures 190-200's , was given PO and IV antihypertensives with no improvement. Patient reports she cannot take care of herself at home, reports she lives with her family who all work and are unable to care for her as well. Patient daughter was at patient side and reports patient has chronic back pain and is on pain medications at home. Patient admitted for further evaluation and treatment. Home Meds Active Scripts Methylprednisolone (Medrol Dosepak) 4 Mg Jimenez, 4 MG PO UD, #21 TAB UAD Prov:ANGELLA SOTO MD 04/28/24 Albuterol Sulfate (Albuterol Sulfate) 0.083 % Neb, 1 VIAL NEB Q4HPRN, #50 VIAL Prov:ANGELLA SOTO MD 04/28/24 Albuterol Sulfate (Albuterol Sulfate Hfa) 108 Mcg/Act Aer, 108 MCG IN Q4HP PRN, #1 AER Prov:ANGELLA SOTO MD 04/28/24 Amoxicillin & Pot Clavulanate (AUGMENTIN TABLET) 875 Mg Tb, 875 MG PO BID for 7 Days, #14 TAB Prov:ANGELLA SOTO MD 04/28/24 Azithromycin (Azithromycin) 500 Mg Tab, 1 TAB PO DAILY for 7 Days, #7 TAB Prov:SOHAIL LIVINGSTON MD 04/21/24 Prednisone (Prednisone) 20 Mg Tab, 20 MG PO BID for 5 Days, #10 TAB Prov:SOHAIL LIVINGSTON MD 04/21/24 Albuterol Sulfate (Albuterol Sulfate Hfa) 108 Mcg/Act Aer, 108 MCG IN Q6HP PRN for 10 Days, #1 AER Prov:SOHAIL LIVINGSTON MD 04/21/24 Naproxen (NAPROSYN TABLET) 500 Mg Tb, 1 TAB PO BID PRN, #20 TAB 1 Refill Prov:KASH RAMOS MD 05/13/23 Cyclobenzaprine HCl (Cyclobenzaprine Hydrochlo) 10 Mg Tab, 10 MG PO TID PRN, #21 TAB Prov:KASH RAMOS MD 05/13/23 Trazodone HCl (Trazodone Hydrochloride) 50 Mg Tab, 50 MG PO QHSP PRN, #20 TAB Prov:RYAN BARONE MD 10/27/20 Gabapentin (Gabapentin) 300 Mg Cap, 600 MG PO TID, #90 CAP Prov:RYAN BARONE MD 10/27/20 Ondansetron (Zofran) 4 Mg Tab, 1 TAB PO Q6HR PRN, #20 TAB Prov:RYAN BARONE MD 10/26/20 Reported Medications Hydrocodone-Acetaminophen (Hydrocodone Bitartrate/AC 10-325 mg) 1 Tab Tab, 1 TAB PO Q6HP, TAB 10/26/20 Gabapentin (Gabapentin) 600 Mg Tab, TAB PO 10/26/20 Metoprolol Succinate (Metoprolol Succinate Er) 50 Mg Tab, 50 MG PO DAILY for 30 Days, MG 10/26/20 Omeprazole (Gnp Omeprazole) 20 Mg Tab, 40 MG PO DAILY, TAB 10/26/20 Amlodipine Besylate (Amlodipine Besylate) 5 Mg Tab, 10 MG PO DAILY for 30 Days, MG 10/26/20 Atorvastatin Calcium (ATORVASTATIN CALCIUM) 40 Mg Tab, 1 TAB PO DAILY, #30 TAB 5 Refills 10/26/20 Duloxetine Hcl (Cymbalta) 60 Mg Cap, 1 CAP PO DAILY, #90 CAP 3 Refills 10/26/20 Levothyroxine Sodium (Synthroid) 88 Mcg Tab, 1 TAB PO DAILY, #30 TAB 5 Refills 10/13/20 Methocarbamol (Methocarbamol) 750 Mg Tab, 750 MG PO BID, TAB 10/13/20 Past Medical History Cardiac: HTN, Hyperlipidemia Pulmonary: COPD, Other (emphysema) GI: GERD Psychiatric: Anxiety, Depression Past Surgical History: Cholecystectomy, 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 Patient Family History: Asthma G8 FATHER Cervical cancer G8 MOTHER G8 SISTER G8 SISTER Chronic obstructive pulmonary disease G8 FATHER Smoker: Quit Alocohol: None Drugs: None Lives with: With family Domestic Violence: Neg Review of Systems Constitutional: No symptom reported Ears, Nose, & Throat: No symptom reported Eyes: No symptom reported Pulmonary/Respiratory: No symptom reported Cardiovascular: Chest Pain Gastrointestinal: Nausea, Abdominal Pain, Constipation Genitourinary: No symptom reported Musculoskeletal: Back pain Skin: No symptom reported Psychiatric: No symptom reported Endocrine: No symptom reported Hemotologic/Lymphatic: No symptom reported H&P Exam Vital Signs Vital Signs Date Time Temp Pulse Resp B/P (MAP) Pulse Ox O2 Delivery O2 Flow Rate FiO2 09/18/24 06:18 91 18 153/51 (85) 96 09/18/24 04:23 98.6 98.6 General Appeara: Well developed, Well nourished, Other (labile , crying) Head Exam: Normal inspection Neck Exam: Normal inspection, Non-tender, Normal alignment Eye Exam: bilateral eye Normal inspection, bilateral eye PERRL, bilateral eye EOMI Ear Exam: bilateral ear Auricle normal Nasal Exam: Normal inspection Mouth: Normal Inspection Pulmonary/Respiratory: Normal inspection, Normal breath sounds, Chest non- tender, Lungs clear Cardiovascular/Chest: Normal inspection, Regular rate, Normal Rhythm Peripheral Pulses: 2+ dorsalis pedis (R), 2+ dorsalis pedis (L), 2+ Radial (R), 2+ Radial (L) Abdominal Exam: Normal bowel sounds, Soft Rectal Exam: Deferred Back Exam: Decreased range of motion, Other (scoliosis) Pelvic Exam: Not done Legs: bilateral leg swelling [employer] Exam: Normal hearing, Normal speech, PERRL Motor/Sensory: Normal sensory function, Normal motor function Neuro/Mental St: Alert, Oriented, Depressed affect Appearance: Disheveled Eye contact/ Speech: Cooperative, Good eye contact, Normal speech Thoughts/Psych: Obsessive, Other (crying, anxious) Skin Exam: Normal inspection, Normal color, Warm/dry Labs/Xrays Labs Test 09/17/24 20:18 Range/Units White Blood Count 6.7 4.4-10.8 10^3/uL Red Blood Count 4.41 4.0-5.20 10^6/uL Hemoglobin 10.8 L 12.2-16.2 g/dL Hematocrit 34.8 L 36.0-46.0 % Mean Corpuscular Volume 78.9 L 80.0-100.0 fL Mean Corpuscular Hemoglobin 24.5 L 28.0-32.0 pg Mean Corpuscular Hemoglobin Concent 31.0 L 32.0-36.0 g/dL Red Cell Distribution Width 16.7 H 11.8-14.3 % Platelet Count 294 140-450 10^3/uL Mean Platelet Volume 8.2 6.9-10.8 fL Neutrophils (%) (Auto) 48.7 37.0-80.0 % Lymphocytes (%) (Auto) 43.8 10.0-50.0 % Monocytes (%) (Auto) 5.6 0.0-12.0 % Eosinophils (%) (Auto) 0.8 0.0-7.0 % Basophils (%) (Auto) 1.1 0.0-2.0 % Neutrophils # (Auto) 3.3 1.6-8.6 10 ^3/uL Lymphocytes # (Auto) 2.9 0.4-5.4 10 ^3/uL Monocytes # (Auto) 0.4 0-1.3 10 ^3/uL Eosinophils # (Auto) 0.1 0-0.8 10 ^3/uL Basophils # (Auto) 0.1 0-0.2 10 ^3/uL Nucleated Red Blood Cells 0.1 % Sodium Level 140 136-145 mmol/L Potassium Level 3.8 3.5-5.1 mmol/L Chloride Level 104 98-107 mmol/L Carbon Dioxide Level 24 20-31 mmol/L Anion Gap 12 5-15 Blood Urea Nitrogen 15 9-23 mg/dL Creatinine 0.80 0.550-1.02 mg/dL Glomerular Filtration Rate Calc 77 >90 mL/min BUN/Creatinine Ratio 18.8 10.0-20.0 Serum Glucose 92 74-106 mg/dL Calcium Level 9.7 8.7-10.4 mg/dL Total Bilirubin 0.3 0.2-1.0 mg/dL Aspartate Amino Transferase (AST) 8 L 13-40 U/L Alanine Aminotransferase (ALT) < 9 7-40 U/L Alkaline Phosphatase 90 46-116 U/L Total Protein 6.5 5.7-8.2 g/dL Albumin 4.7 3.2-4.8 g/dL Lipase 38 12-53 U/L Assessment/Plan Problem List: (1) Chest pain (2) HTN (hypertension) (3) Chronic back pain Plan This is a 74-year-old female with a known history of hypertension, dM, HLD, GERD, anxiety, depression, multiple back surgeries, chronic back pain, COPD, Emphysema, cholecystectomy, hysterectomy, tonsillectomy who presents with chief complaint of abdominal pain. The patient states that she has had this back in the abdominal increasing since yesterday morning. The patient is also complaining of some constipation, and currently recently reports midsternal chest pain radiating to her back as a burning sensation. Patient found to have 1. Hypertensive urgency 2. Chest pain 3. Back pain (chronic) 4. Anxiety/depression 5. DM type 2 6. COPD /Emphysema 7. GERD Plan: Admit Telemetry Cardiology consultation, 2D echocardiogram, serial troponin levels, ASA, Statin Tele psych med consultation Social service consultation PT evaluation Continue home medications antihypertensive as needed for optimal blood pressure management analgesics/antiemetics as needed Bronchodilators as needed Supplemental oxygen as needed Discussed all above with patient who verbalizes agreement and understanding of care plan. All questions were answered. Discussed with supervising MD. Patient's chart is reviewed and discussed with the nurse practitioner. I agree with the nurse practitioner's evaluation, documentation, assessment and care plan as outlined. Plan discussed with: Patient, Daughter, Other Code Visit Code Visit Total Time (mins): 45 SHANTAL CRUM September 18, 2024 07:02 DUSTY QUINTANA MD September 18, 2024 13:55
[2024-09-18 07:16] VITALS: BP 153/51; PULSE 91; RESP 18; O2SAT 96
[2024-09-18] MEDS: FAMOTIDINE 20 MG TAB PO SCH (10:00)
[2024-09-18] MEDS ORDERED: ATORVASTATIN 20 MG TAB PO SCH (10:00)
[2024-09-18] MEDS: LEVOTHYROXINE SODIUM 88 MCG TAB PO SCH (10:00)
[2024-09-18] MEDS: ENOXAPARIN SOD 40 MG/0.4 ML SYRINGE SC SCH (10:00)
[2024-09-18] MEDS: METHOCARBAMOL 500 MG TAB PO SCH (10:00)
[2024-09-18] MEDS ORDERED: amLODIPine BESYLATE 5 MG TAB PO SCH (10:00)
[2024-09-18] MEDS: ASPirin 81 mg TAB PO SCH (10:00)
[2024-09-18] MEDS: DULoxetine HCL 30 MG CAP PO SCH (10:00)
[2024-09-18] MEDS: IPRATROPIUM BROM 0.5 MG/2.5ML INH SOL NEB SCH (11:37)
[2024-09-18] MEDS: hydrALAZINE HCL 20 MG/ML VL IV PRN ×2 (12:46→18:53)
[2024-09-18] MEDS: ONDANSETRON HCL 4 MG/2 ML VIAL IV PRN (12:46)
[2024-09-18] MEDS ORDERED: HYDROcodone-ACET 10/325MG TAB PO PRN (14:15)
[2024-09-18] MEDS: MORPHINE SULFATE 4 MG/ML SYR/VIAL IV PRN (15:15)
[2024-09-18] MEDS: SOD CHL 0.45% 1,000 ML IV SCH (15:21)
[2024-09-18] MEDS: GABAPENTIN 300 MG CAP PO SCH (15:23)
[2024-09-18] MEDS: ALPRAZolam 0.5 MG TAB PO PRN (16:36)
[2024-09-18] MEDS: cloNIDine HCL 0.1 MG TAB PO PRN (16:55)
[2024-09-18 17:00] VITALS: BP 210/70; PULSE 72; RESP 17; TEMP 98; O2SAT 96
[2024-09-18 20:00] VITALS: PULSE 85; PULSE 94; RESP 17; O2SAT 96
[2024-09-18 21:00] VITALS: BP 154/63; PULSE 94; RESP 17; TEMP 97.9; O2SAT 96
[2024-09-18] MEDS: FAMOTIDINE (10MG/ML) 2ML VL IV SCH (21:46)
[2024-09-18] MEDS: ATORVASTATIN 20 MG TAB PO SCH (21:50)
[2024-09-19] VITALS (16 sets, daily range): BP systolic 123–155; BP diastolic 46–72; PULSE 63–99; RESP 16–19; TEMP 97.8–98.9; O2SAT 92–99
[2024-09-19] MEDS ORDERED: IOHEXOL 350 MG/ML 100ML IJ ONE (07:58)
[2024-09-19 08:20] LABS: Alanine Aminotransferase 16 U/L (7-40); Albumin 4.4 g/dL (3.2-4.8); Alkaline Phosphatase 92 U/L (46-116); Anion Gap 14 (5-15); Aspartate Aminotransferase 38 U/L (13-40); BUN/Creatinine Ratio 16.4 (10.0-20.0); Blood Urea Nitrogen 11 mg/dL (9-23); Carbon Dioxide 21 mmol/L (20-31); Chloride 103 mmol/L (98-107); Glucose 89 mg/dL (74-106); Potassium 3.8 mmol/L (3.5-5.1); Sodium 138 mmol/L (136-145)
[2024-09-19 08:21] LABS: Bilirubin, Total 0.6 mg/dL (0.2-1.0)
[2024-09-19] MEDS: METOPROLOL SUCCINATE XL 50 MG TAB PO SCH (09:07)
--- NOTE | 2024-09-19 09:32 | DVH ---
EXAM: CT CT CHEST/AB/PL W CON- IV ONLY HISTORY: Back/abdominal pain/ ANGIO CHEST COMPARISON: CT AB PEL WITH IV CON ONLY on DOS: 10/26/20, CT AB PEL WITH IV CON ONLY on DOS: 10/25/20, CT scan of the abdomen and pelvis without IV contrast dated 09/17/2024. TECHNIQUE: Helical CT images of the chest, abdomen, and pelvis were performed after administration of IV contra st. Sagittal and coronal reformatted images were obtained. This CT exam was performed using one or more of the following dose reduction techniques: Automated exposure control, adjustment of the mA and /or kv according to patient size, or the use of iterative reconstruction techniques. Radiation Dose I nformation: CT Dose: CTDI volume is 5.87 mGy. Dose-length product is 454.21 mGy*cm FINDINGS: CT chest: No pneumothorax, pulmonary edema, consolidative infiltrates, pleural effusions, or suspicio us lung nodules. There is biapical lung scarring, greater on the right. There is [id number] per ibronchial thickening. There are bilateral posterior diaphragmatic hernias. The heart is not enlarged . No pulmonary arterial intraluminal filling defects are identified here. No thoracic aortic aneurysm or dissection. No suspicious mediastinal or axillary lymphadenopathy. There is a chronic superior endplate compression fracture of T11. There is advanced lower cervical and lower thoracic degenerativ e disc disease. CT abdomen: There is multifocal cortical scarring of the right kidney. The gallbladder is surgically absent. The liver, spleen, pancreas, left kidney, and adrenal glands are unremarkable. No abdominal aortic aneurysm or dissection. CT pelvis: No abnormal bowel dilatation, free air, or free fluid. The uterus is surgically absent. T here are sigmoid colon diverticula without evidence of acute diverticulitis. The appendix is not defi nitely visualized, and there is no specific evidence of acute appendicitis. The urinary bladder is u nremarkable. No fractures are identified about the lumbar spine, pelvis, or hips. There is thoracolu mbar levoscoliosis. There are postoperative changes of posterior spinal fusion with pedicle screws a nd rods L1-S1, laminectomy L2-L5, anterior plate and screw fusion L5-S1. There is [id number]-qetgwcrf os teoarthritis of the bilateral hips. IMPRESSION: 1. Reactive airways disease and biapical lung scarring. 2. No evidence of pulmonary embolism or other acute intrathoracic process. 3. Postoperative changes of cholecystectomy, hysterectomy, lumbosacral surgery, and possibly also dinah endectomy. 4. Colon diverticulosis without evidence of acute diverticulitis. 5. No evidence of bowel obstruction or other acute process in the abdomen or pelvis.
[2024-09-19 10:19] LABS: Basophils # (auto) 0 10 ^3/uL (0-0.2); Basophils % (auto) 0.5 % (0.0-2.0); Eosinophils # (auto) 0 10 ^3/uL (0-0.8); Eosinophils % (auto) 0.2 % (0.0-7.0); Hematocrit 31.4 % (36.0-46.0); Hemoglobin 9.8 g/dL (12.2-16.2); Lymphocytes # (auto) 1.4 10 ^3/uL (0.4-5.4); Lymphocytes % (auto) 18.7 % (10.0-50.0); Mean Corpuscular Hemoglobin 24.5 pg (28.0-32.0); Mean Corpuscular Hgb Conc. 31.2 g/dL (32.0-36.0); Mean Corpuscular Volume 78.5 fL (80.0-100.0); Monocytes # (auto) 0.6 10 ^3/uL (0-1.3); Monocytes % (auto) 8.7 % (0.0-12.0); Neutrophils # (auto) 5.3 10 ^3/uL (1.6-8.6); Neutrophils % (auto) 71.9 % (37.0-80.0); Nucleated Red Blood Cells % 0.2 %; Platelet Count (auto) 259 10^3/uL (140-450); Red Cell Distribution Width 16.7 % (11.8-14.3); White Blood Cell 7.4 10^3/uL (4.4-10.8)
--- NOTE | 2024-09-19 11:59 | DVHSR ---
APPROVED REPORT EXAM: Two-dimensional and M-mode echocardiogram with Doppler and color Doppler. Blood Pressure: 123/50 mmHg INDICATION htn urgency RISK FACTORS Height: 5'4, Weight: 164 DIMENSIONS LVDd3.6 (3.8-5.7cm)LA (2D)4.3 (1.9-4.0cm)Aortic Root3.2 (2.0-3.7cm) LVDs1.8 (2.5-4.0cm)LA (MM) (1.9-4.0cm)Aortic Cusp Exc1.0 (1.5-2.0cm) EF (%) 65.0 (55-70%)Rt. Atrium3.1 (1.9-4.0cm)Asc. Aorta cm IVSd1.2 (0.7-1.1cm)RV (D)3.3 (1.8-2.4cm) PWd1.1 (0.7-1.1cm) Mitral Valve MitralMitral Stenosis E wave1.21m/sMV Mean GR.mmHg A wave1.49m/sMV Peak GR.106mmHg E/A ratio0.82D MVAcm2 DECEL [id number] 1/2 Timems Aortic Valve Aortic ValveAortic Stenosis V11.40m/Maria L Mean GR.11mmHg V22.19m/Maria L Peak GR.19mmHg LVOT Diameter2.0 (1.8-2.4cm)Doppler AVA2.01cm2 AI P 1/2 Qwbb229.44ms Pulmonic Valve V21.32m/s Tricuspid Valve TR Velocity2.53m/s [id number] Other Information Technically limited study due to body habitus. Conclusion lvef 65% by visual estimate moderate LVH normal RV function normal atria mild aortic stenosis with mild restricted motion in systole mild aortic regurg limited study
--- NOTE | 2024-09-19 12:20 | DVHINCON2 ---
Date of service: September 19, 2024 History of Present Illness Mrs. Rosa Galicia is a 74-year-old female with a history of hypertension, dM, HLD, GERD, anxiety, depression, COPD, Emphysema, cholecystecomy, hysterectomy, tonsillectomy who presents with chief complaint of abdominal pain. The patient states that she has had this back in the abdominal increasing since yesterday morning. The patient is also complaining of some constipation, and currently recently reports midsternal chest pain radiating to her back as a burning sensation. The patient is also reporting nausea. Patient was worked up in the ED for abdominal pain with no acute findings on the CT abdomen/pelvis. CT lumbar spine and thoracic spine with no acute findings. Patient with systolic blood pressures 190-200's , was given PO and IV antihypertensives with no improvement. Patient reports she cannot take care of herself at home, reports she lives with her family who all work and are unable to care for her as well. Patient daughter was at patient side and reports patient has chronic back pain and is on pain medications at home. Patient admitted for further evaluation and treatment. Home Meds Active Scripts Methylprednisolone (Medrol Dosepak) 4 Mg Jimenez, 4 MG PO UD, #21 TAB Past Medical History reviewed Family History: Asthma G8 FATHER Cervical cancer G8 MOTHER G8 SISTER G8 SISTER Chronic obstructive pulmonary disease G8 FATHER Allergies: Coded Allergies: NO KNOWN ALLERGIES (Unverified , 03/29/10) Home Meds Active Scripts Methylprednisolone (Medrol Dosepak) 4 Mg Jimenez, 4 MG PO UD, #21 TAB UAD Prov:ANGELLA SOTO MD 04/28/24 Albuterol Sulfate (Albuterol Sulfate) 0.083 % Neb, 1 VIAL NEB Q4HPRN, #50 VIAL Prov:ANGELLA SOTO MD 04/28/24 Albuterol Sulfate (Albuterol Sulfate Hfa) 108 Mcg/Act Aer, 108 MCG IN Q4HP PRN, #1 AER Prov:ANGELLA SOTO MD 04/28/24 Amoxicillin & Pot Clavulanate (AUGMENTIN TABLET) 875 Mg Tb, 875 MG PO BID for 7 Days, #14 TAB Prov:ANGELLA SOTO MD 04/28/24 Azithromycin (Azithromycin) 500 Mg Tab, 1 TAB PO DAILY for 7 Days, #7 TAB Prov:SOHAIL LIVINGSTON MD 04/21/24 Prednisone (Prednisone) 20 Mg Tab, 20 MG PO BID for 5 Days, #10 TAB Prov:SOHAIL LIVINGSTON MD 04/21/24 Albuterol Sulfate (Albuterol Sulfate Hfa) 108 Mcg/Act Aer, 108 MCG IN Q6HP PRN for 10 Days, #1 AER Prov:SOHAIL LIVINGSTON MD 04/21/24 Naproxen (NAPROSYN TABLET) 500 Mg Tb, 1 TAB PO BID PRN, #20 TAB 1 Refill Prov:KASH RAMOS MD 05/13/23 Cyclobenzaprine HCl (Cyclobenzaprine Hydrochlo) 10 Mg Tab, 10 MG PO TID PRN, #21 TAB Prov:KASH RAMOS MD 05/13/23 Trazodone HCl (Trazodone Hydrochloride) 50 Mg Tab, 50 MG PO QHSP PRN, #20 TAB Prov:RYAN BARONE MD 10/27/20 Gabapentin (Gabapentin) 300 Mg Cap, 600 MG PO TID, #90 CAP Prov:RYAN BARONE MD 10/27/20 Ondansetron (Zofran) 4 Mg Tab, 1 TAB PO Q6HR PRN, #20 TAB Prov:RYAN BARONE MD 10/26/20 Reported Medications Hydrocodone-Acetaminophen (Hydrocodone Bitartrate/AC 10-325 mg) 1 Tab Tab, 1 TAB PO Q6HP, TAB 10/26/20 Gabapentin (Gabapentin) 600 Mg Tab, TAB PO 10/26/20 Metoprolol Succinate (Metoprolol Succinate Er) 50 Mg Tab, 50 MG PO DAILY for 30 Days, MG 10/26/20 Omeprazole (Gnp Omeprazole) 20 Mg Tab, 40 MG PO DAILY, TAB 10/26/20 Amlodipine Besylate (Amlodipine Besylate) 5 Mg Tab, 10 MG PO DAILY for 30 Days, MG 10/26/20 Atorvastatin Calcium (ATORVASTATIN CALCIUM) 40 Mg Tab, 1 TAB PO DAILY, #30 TAB 5 Refills 10/26/20 Duloxetine Hcl (Cymbalta) 60 Mg Cap, 1 CAP PO DAILY, #90 CAP 3 Refills 10/26/20 Levothyroxine Sodium (Synthroid) 88 Mcg Tab, 1 TAB PO DAILY, #30 TAB 5 Refills 10/13/20 Methocarbamol (Methocarbamol) 750 Mg Tab, 750 MG PO BID, TAB 10/13/20 Current Medications Current Medications Medications (Trade) Dose Ordered Sig/Shaila Route PRN Reason Start Time Stop Time Status Last Admin Gabapentin (Neurontin Capsule) 600 mg TID PO 09/18/24 14:00 09/19/24 06:11 Metoprolol Succinate (Toprol Xl) 50 mg DAILY PO 09/19/24 10:00 09/19/24 09:07 Atorvastatin Calcium (Lipitor) 40 mg HS PO 09/18/24 22:00 09/18/24 21:50 Hydralazine HCl (Apresoline Injection) 10 mg Q4HPRN PRN IV SBP>150 or DBP>90 09/18/24 14:15 09/18/24 18:53 Famotidine (Pepcid Injection) 20 mg Q12HR IV 09/18/24 22:00 09/19/24 09:18 Clonidine HCl (Catapres Tablet) 0.1 mg Q4HP PRN PO SBP>160 09/18/24 14:15 09/19/24 04:40 Acetaminophen/ Hydrocodone Bitart ([place] 10/325MG Tab) 1 tab Q4HP PRN PO MODERATE PAIN (4-6 PAIN SCALE) 09/18/24 14:15 Morphine Sulfate 2 mg Q3HPRN PRN IV SEVERE PAIN (7-10 PAIN SCALE) 09/18/24 14:30 09/19/24 12:12 Sodium Chloride 1,000 ml @ 75 mls/hr [id number] IV 09/18/24 14:15 09/18/24 15:21 Alprazolam (Xanax Tablet) 0.5 mg Q6HP PRN PO ANXIETY 09/18/24 16:00 09/18/24 16:36 Review of Systems 10 pt ros otherwise negative Vital Signs Vital Signs Date Time Temp Pulse Resp B/P (MAP) Pulse Ox O2 Delivery O2 Flow Rate FiO2 09/19/24 12:12 80 17 155/46 09/19/24 09:00 98.5 97 98.5 09/19/24 08:00 Room Air* 0 21 Physical Exam nad s1 s2 rrr ctab soft nt/nd no edema Labs/Diagnostic Data Labs Test 09/19/24 10:03 09/19/24 06:46 09/18/24 07:19 Range/Units White Blood Count 7.4 4.4-10.8 10^3/uL Red Blood Count 4.00 4.0-5.20 10^6/uL Hemoglobin 9.8 L 12.2-16.2 g/dL Hematocrit 31.4 L 36.0-46.0 % Mean Corpuscular Volume 78.5 L 80.0-100.0 fL Mean Corpuscular Hemoglobin 24.5 L 28.0-32.0 pg Mean Corpuscular Hemoglobin Concent 31.2 L 32.0-36.0 g/dL Red Cell Distribution Width 16.7 H 11.8-14.3 % Platelet Count 259 140-450 10^3/uL Mean Platelet Volume 7.7 6.9-10.8 fL Neutrophils (%) (Auto) 71.9 37.0-80.0 % Lymphocytes (%) (Auto) 18.7 10.0-50.0 % Monocytes (%) (Auto) 8.7 0.0-12.0 % Eosinophils (%) (Auto) 0.2 0.0-7.0 % Basophils (%) (Auto) 0.5 0.0-2.0 % Neutrophils # (Auto) 5.3 1.6-8.6 10 ^3/uL Lymphocytes # (Auto) 1.4 0.4-5.4 10 ^3/uL Monocytes # (Auto) 0.6 0-1.3 10 ^3/uL Eosinophils # (Auto) 0 0-0.8 10 ^3/uL Basophils # (Auto) 0 0-0.2 10 ^3/uL Nucleated Red Blood Cells 0.2 % Troponin I High Sensitivity 24 </=34 ng/L Sodium Level 138 136-145 mmol/L Potassium Level 3.8 3.5-5.1 mmol/L Chloride Level 103 98-107 mmol/L Carbon Dioxide Level 21 20-31 mmol/L Anion Gap 14 5-15 Blood Urea Nitrogen 11 9-23 mg/dL Creatinine 0.67 0.550-1.02 mg/dL Glomerular Filtration Rate Calc 92 >90 mL/min BUN/Creatinine Ratio 16.4 10.0-20.0 Serum Glucose 89 74-106 mg/dL Calcium Level 10.0 8.7-10.4 mg/dL Total Bilirubin 0.6 0.2-1.0 mg/dL Aspartate Amino Transferase (AST) 38 13-40 U/L Alanine Aminotransferase (ALT) 16 7-40 U/L Alkaline Phosphatase 92 46-116 U/L Total Protein 6.0 5.7-8.2 g/dL Albumin 4.4 3.2-4.8 g/dL D-Dimer, Quantitative 0.31 0.0-0.49 mg/L FEU Assessment malignant HTN abnormal ecg septal infarct on ecg aortic stenosis obesity HL asa, statin outpt stress mpi acs ruled out cont CCB and BB, add prn clonidine on DC Plan discussed with: Patient RENA SAM MD September 19, 2024 12:20
[2024-09-19 13:03] LABS: Lipase 37 U/L (12-53)
[2024-09-19] MEDS ORDERED: CLON0.1T PO (14:14)
[2024-09-19] MEDS ORDERED: AMLO1TAB22 PO (14:14)
[2024-09-19] MEDS ORDERED: METO-289 PO (14:14)
[2024-09-19] MEDS ORDERED: LACT10SO3 PO (14:14)
[2024-09-19] MEDS ORDERED: BLOO1KIT54 XX (14:17)
--- NOTE | 2024-09-19 14:18 | DVHDS2 ---
Discharge Summary Date of Admission September 18, 2024 at 06:18 Date of Discharge: September 19, 2024 Labs/Diagnostic Data: Laboratory Results Test 09/19/24 10:03 09/19/24 06:46 09/18/24 07:19 White Blood Count 7.4 10^3/uL (4.4-10.8) Red Blood Count 4.00 10^6/uL (4.0-5.20) Hemoglobin 9.8 g/dL (12.2-16.2) Hematocrit 31.4 % (36.0-46.0) Mean Corpuscular Volume 78.5 fL (80.0-100.0) Mean Corpuscular Hemoglobin 24.5 pg (28.0-32.0) Mean Corpuscular Hemoglobin Concent 31.2 g/dL (32.0-36.0) Red Cell Distribution Width 16.7 % (11.8-14.3) Platelet Count 259 10^3/uL (140-450) Mean Platelet Volume 7.7 fL (6.9-10.8) Neutrophils (%) (Auto) 71.9 % (37.0-80.0) Lymphocytes (%) (Auto) 18.7 % (10.0-50.0) Monocytes (%) (Auto) 8.7 % (0.0-12.0) Eosinophils (%) (Auto) 0.2 % (0.0-7.0) Basophils (%) (Auto) 0.5 % (0.0-2.0) Neutrophils # (Auto) 5.3 10 ^3/uL (1.6-8.6) Lymphocytes # (Auto) 1.4 10 ^3/uL (0.4-5.4) Monocytes # (Auto) 0.6 10 ^3/uL (0-1.3) Eosinophils # (Auto) 0 10 ^3/uL (0-0.8) Basophils # (Auto) 0 10 ^3/uL (0-0.2) Nucleated Red Blood Cells 0.2 % Troponin I High Sensitivity 24 ng/L (</=34) Sodium Level 138 mmol/L (136-145) Potassium Level 3.8 mmol/L (3.5-5.1) Chloride Level 103 mmol/L (98-107) Carbon Dioxide Level 21 mmol/L (20-31) Anion Gap 14 (5-15) Blood Urea Nitrogen 11 mg/dL (9-23) Creatinine 0.67 mg/dL (0.550-1.02) Glomerular Filtration Rate Calc 92 mL/min (>90) BUN/Creatinine Ratio 16.4 (10.0-20.0) Serum Glucose 89 mg/dL (74-106) Calcium Level 10.0 mg/dL (8.7-10.4) Total Bilirubin 0.6 mg/dL (0.2-1.0) Aspartate Amino Transferase (AST) 38 U/L (13-40) Alanine Aminotransferase (ALT) 16 U/L (7-40) Alkaline Phosphatase 92 U/L (46-116) Total Protein 6.0 g/dL (5.7-8.2) Albumin 4.4 g/dL (3.2-4.8) Lipase 37 U/L (12-53) D-Dimer, Quantitative 0.31 mg/L FEU (0.0-0.49) Other Laboratory Tests 09/19/24 10:03 09/19/24 06:46 Brief Hx & Hospital Course: Mrs. Rosa Galicia is a 74-year-old female with a history of hypertension, dM, HLD, GERD, anxiety, depression, COPD, Emphysema, cholecystecomy, hysterectomy, tonsillectomy who presents with chief complaint of abdominal pain. The patient states that she has had this back in the abdominal increasing since yesterday morning. The patient is also complaining of some constipation, and currently recently reports midsternal chest pain radiating to her back as a burning sensation. The patient is also reporting nausea. Patient was worked up in the ED for abdominal pain with no acute findings on the CT abdomen/pelvis. CT lumbar spine and thoracic spine with no acute findings. Patient with systolic blood pressures 190-200's , was given PO and IV antihypertensives with no improvement. Patient reports she cannot take care of herself at home, reports she lives with her family who all work and are unable to care for her as well. Patient daughter was at patient side and reports patient has chronic back pain and is on pain medications at home. Patient admitted for further evaluation and treatment. She is admitted and underwent cardiac evaluation/consultation and her blood pressure medications have been adjusted. Blood pressure has normalized. Given her complaints of pain she underwent further evaluations and studies including the CT of the chest abdomen and pelvis with contrast. Essentially scans are unremarkable. Patient pain felt chronic in nature and suggestive of sciatica pain. Patient resumed back on her pain medications. She is advised to follow up with the her pain management physician Dr. Castellano. Patient counseled and educated regarding her constipation due to narcotics and prescribed lactulose and advised to drink prune juice at home to keep her bowels regular daily which may be contributing to some of her pain as well. Patient is also advised to continue the blood pressure medications as prescribed and to check her blood pressure to keep it below 140/80. I have prescribed her a blood pressure cuff/device kit. Home health is being arranged through [facility] to check on her and to counseled and educated her regarding her blood pressure and pain management. Otherwise given overall her workup in the hospital being normal and her blood pressure being stabilized it is felt she could be safely discharged home with close outpatient follow up. I have talked with the patient regarding this, regarding her hospital diagnosis, imaging study results, discharge medications, discharge instructions and follow-up plan of care. She has verbalized understanding of these and agree with the care plan as outlined. Operations or Procedures APPROVED REPORT EXAM: Two-dimensional and M-mode echocardiogram with Doppler and color Doppler. Blood Pressure: 123/50 mmHg INDICATION htn urgency RISK FACTORS Height: 5'4, Weight: 164 DIMENSIONS LVDd 3.6 (3.8-5.7cm) LA (2D) 4.3 (1.9-4.0cm) Aortic Root 3.2 (2.0- 3.7cm) LVDs 1.8 (2.5-4.0cm) LA (MM) (1.9-4.0cm) Aortic Cusp Exc 1.0 (1.5- 2.0cm) EF (%) 65.0 (55-70%) Rt. Atrium 3.1 (1.9-4.0cm) Asc. Aorta cm IVSd 1.2 (0.7-1.1cm) RV (D) 3.3 (1.8-2.4cm) PWd 1.1 (0.7-1.1cm) Mitral Valve Mitral Mitral Stenosis E wave 1.21m/s MV Mean GR. mmHg A wave 1.49m/s MV Peak GR. 106mmHg E/A ratio 0.8 2D MVA cm2 DECEL Time 282ms PRESS 1/2 Time ms Aortic Valve Aortic Valve Aortic Stenosis V1 1.40m/s AO Mean GR. 11mmHg V2 2.19m/s AO Peak GR. 19mmHg LVOT Diameter 2.0 (1.8-2.4cm) Doppler GHULAM 2.01cm2 AI P 1/2 Time 484.44ms Pulmonic Valve V2 1.32m/s Tricuspid Valve TR Velocity 2.53m/s RVSP 38mmHg Other Information Technically limited study due to body habitus. Conclusion lvef 65% by visual estimate moderate LVH normal RV function normal atria mild aortic stenosis with mild restricted motion in systole mild aortic regurg limited study SIGNED BY: RENA SAM MD SIGNED DATE/TIME: 09/19/24 4976 Condition at Discharge: Stable Final Diagnosis/Problems List Constipation, hypertensive urgency, hypertension, chronic pain syndrome, opiate dependency, anxiety disorder Discharge Disposition: Home Discharge Instruct/Medications Diet: Consistent carbohydrate, Cardiac 2g Na,low cholest Activity: No Restrictions, As Tolerated Activity comment: With walker Follow Up/Referral: Dr. Sma her doctor after two weeks for blood pressure management and chest discomfort. Dr. Castellano your pain doctor next week for pain shots to your lower back as needed Medications: As prescribed and home medications per discharge med reconciliation list New Medications: Clonidine Hydrochloride (Clonidine Hcl) 0.1 Mg Tab 0.1 MG PO BID, #90 TAB Lactulose (Lactulose) 10 Gm/15 Ml Eduarda 10 GM PO BID, #240 ML Misc. Devices (Blood Pressure Monitor) Monitor Kit EA XX DAILY, #1 Continued Medications: Albuterol Sulfate (Albuterol Sulfate Hfa) 108 Mcg/Act Aer 108 MCG IN Q4HP PRN, #1 AER Albuterol Sulfate (Albuterol Sulfate) 0.083 % Neb 1 VIAL NEB Q4HPRN, #50 VIAL Amlodipine Besylate (Amlodipine Besylate) 5 Mg Tab 10 MG PO DAILY, #60 MG (This prescription has been renewed) Atorvastatin Calcium (Atorvastatin Calcium) 40 Mg Tab 1 TAB PO DAILY, #30 TAB 5 Refills Cyclobenzaprine HCl (Cyclobenzaprine Hydrochlo) 10 Mg Tab 10 MG PO TID PRN, #21 TAB Duloxetine Hcl (Cymbalta) 60 Mg Cap 1 CAP PO DAILY, #90 CAP 3 Refills Gabapentin (Gabapentin) 300 Mg Cap 600 MG PO TID, #90 CAP Hydrocodone-Acetaminophen (Hydrocodone Bitartrate/AC 10-325 mg) 1 Tab Tab 1 TAB PO Q6HP, TAB Levothyroxine Sodium (Synthroid) 88 Mcg Tab 1 TAB PO DAILY, #30 TAB 5 Refills Methocarbamol (Methocarbamol) 750 Mg Tab 750 MG PO BID, TAB Metoprolol Succinate (Metoprolol Succinate Er) 50 Mg Tab 50 MG PO DAILY, #30 MG (This prescription has been renewed) Naproxen (Naprosyn Tablet) 500 Mg Tb 1 TAB PO BID PRN, #20 TAB 1 Refill Omeprazole (Gnp Omeprazole) 20 Mg Tab 40 MG PO DAILY, TAB Ondansetron (Zofran) 4 Mg Tab 1 TAB PO Q6HR PRN, #20 TAB Trazodone HCl (Trazodone Hydrochloride) 50 Mg Tab 50 MG PO QHSP PRN, #20 TAB Discontinued Medications: Albuterol Sulfate (Albuterol Sulfate Hfa) 108 Mcg/Act Aer 108 MCG IN Q6HP PRN for 10 Days, #1 AER Amoxicillin & Pot Clavulanate (Augmentin Tablet) 875 Mg Tb 875 MG PO BID for 7 Days, #14 TAB Azithromycin (Azithromycin) 500 Mg Tab 1 TAB PO DAILY for 7 Days, #7 TAB Gabapentin (Gabapentin) 600 Mg Tab TAB PO Methylprednisolone (Medrol Dosepak) 4 Mg Jimenez 4 MG PO UD, #21 TAB UAD Prednisone (Prednisone) 20 Mg Tab 20 MG PO BID for 5 Days, #10 TAB Discharge Statement: "Patient was advised to return to the ER or call 911 if any headaches, dizziness, shortness of breath, chest pain, abdominal pain, bleeding, fevers, or worsening of medical condition. Patient was counseled about treatment plan, medications, possible side effects, patientverbalized understanding. All questions were answered to the best of my ability. This discharge took greater then 30 minutes in planning, reviewing documentation, counseling the patient, and discussing with other team members." ASSESSMENT ASSESSMENT Assessment Constipation, hypertensive urgency, hypertension, chronic pain syndrome, opiate dependency, anxiety disorder DUSTY QUINTANA MD September 19, 2024 14:18
[2024-09-19] MEDS: LACTULOSE 20Gm/30ML SOLN PO ONE (14:23)
[2024-09-19] MEDS: ACETAMINOPHEN 325 MG TAB PO PRN (14:27)
== END 2024-09-19 20:37 | disposition home health service (06) | DRG 392 ==
LOC: EDBD 19:51 → ER 19:51 → OVERFLOW 09-18 06:18 → TELE-CENTR 09-18 13:11
PROVIDERS: ADMIT Nurse Practitioner Family; ATTEND Nurse Practitioner Family
DX: K59.03 Drug induced constipation (principal); F11.20 Opioid dependence, uncomplicated; E11.9 Type 2 diabetes mellitus without complications; I16.0 Hypertensive urgency; G89.4 Chronic pain syndrome; I10 Essential (primary) hypertension; F41.9 Anxiety disorder, unspecified; I08.0 Rheumatic disorders of both mitral and aortic valves; E66.9 Obesity, unspecified; K21.9 Gastro-esophageal reflux disease without esophagitis; J44.89 Other specified chronic obstructive pulmonary disease; E78.5 Hyperlipidemia, unspecified; J43.8 Other emphysema; T40.605A Adverse effect of unspecified narcotics, initial encounter; Z79.2 Long term (current) use of antibiotics; Z79.899 Other long term (current) drug therapy; Z90.49 Acquired absence of other specified parts of digestive tract; Z90.710 Acquired absence of both cervix and uterus; Z87.891 Personal history of nicotine dependence; Z82.5 Family history of asthma and other chronic lower respiratory diseases; Z80.49 Family history of malignant neoplasm of other genital organs; Y92.89 Other specified places as the place of occurrence of the external cause
CPT/HCPCS: 36415; 71045; 71260; 72128; 72131; 74176; 74177; 80053; 83690; 84484; 85025; 85379; 93306; 94640; 96374; 96375; 97110; 97116; 97163; 97530; G0378; J2405; J3490

== ENCOUNTER 2025-02-09 12:03 | Inpatient (IN) | payer OTHER ==
[~2025-02-09] VITALS: Ht 167.6 cm; Wt 50.0 kg
[~2025-02-09 12:03] MED LIST changes: -AUG875T PO; -AZIT500T66 PO; +BLOO1KIT54 XX; +CLON0.1T PO; -GABA-339 PO; +LACT10SO3 PO; -METH4PAK PO; -PRED20TA2 PO
--- NOTE | 2025-02-09 12:40 | ED.PDOC ---
GI ASSESSMENT HPI Comments 74 y.o female with PMHx of HTN, PUD, DM, anemia, HLD, thyroid and GERD, presents to the ED via EMS for a chief complaint of diffused abdominal pain associated with weakness, constipation, poor appetite, and nausea that started 1 week ago. Patient states weakness has worsened and for the past 3 days has not been able to get herself out of her bed nor ambulate as she usually does. EMS reports patient has lost 30 pounds in the past month per family on scene. Patient denies any chest pain, SOB, fever, chills, vomiting, rectal bleeding. Chief Complaint: Abdominal Pain Time Seen by MD: 12:15 Primary Care Provider: NICOLÁS Reviewed Notes: Nurses Notes, Medications, Allergies Allergies: Coded Allergies: NO KNOWN ALLERGIES (Unverified , 03/29/10) Home Meds Active Scripts Misc. Devices (Blood Pressure Monitor) Monitor Kit, EA XX DAILY, #1 Prov:DUSTY QUINTANA MD 09/19/24 Lactulose (Lactulose) 10 Gm/15 Ml Eduarda, 10 GM PO BID, #240 ML Prov:DUSTY QUINTANA MD 09/19/24 Clonidine Hydrochloride (Clonidine Hcl) 0.1 Mg Tab, 0.1 MG PO BID, #90 TAB Prov:DUSTY QUINTANA MD 09/19/24 Metoprolol Succinate (Metoprolol Succinate Er) 50 Mg Tab, 50 MG PO DAILY, #30 MG Prov:DUSTY QUINTANA MD 09/19/24 Amlodipine Besylate (Amlodipine Besylate) 5 Mg Tab, 10 MG PO DAILY, #60 MG Prov:DUSTY QUINTANA MD 09/19/24 Albuterol Sulfate (Albuterol Sulfate) 0.083 % Neb, 1 VIAL NEB Q4HPRN, #50 VIAL Prov:ANGELLA SOTO MD 04/28/24 Albuterol Sulfate (Albuterol Sulfate Hfa) 108 Mcg/Act Aer, 108 MCG IN Q4HP PRN, #1 AER Prov:ANGELLA SOTO MD 04/28/24 Naproxen (NAPROSYN TABLET) 500 Mg Tb, 1 TAB PO BID PRN, #20 TAB 1 Refill Prov:KASH RAMOS MD 05/13/23 Cyclobenzaprine HCl (Cyclobenzaprine Hydrochlo) 10 Mg Tab, 10 MG PO TID PRN, #21 TAB Prov:KASH RAMOS MD 05/13/23 Trazodone HCl (Trazodone Hydrochloride) 50 Mg Tab, 50 MG PO QHSP PRN, #20 TAB Prov:RYAN BARONE MD 10/27/20 Gabapentin (Gabapentin) 300 Mg Cap, 600 MG PO TID, #90 CAP Prov:RYAN BARONE MD 10/27/20 Ondansetron (Zofran) 4 Mg Tab, 1 TAB PO Q6HR PRN, #20 TAB Prov:RYAN BARONE MD 10/26/20 Reported Medications Hydrocodone-Acetaminophen (Hydrocodone Bitartrate/AC 10-325 mg) 1 Tab Tab, 1 TAB PO Q6HP, TAB 10/26/20 Omeprazole (Gnp Omeprazole) 20 Mg Tab, 40 MG PO DAILY, TAB 10/26/20 Atorvastatin Calcium (ATORVASTATIN CALCIUM) 40 Mg Tab, 1 TAB PO DAILY, #30 TAB 5 Refills 10/26/20 Duloxetine Hcl (Cymbalta) 60 Mg Cap, 1 CAP PO DAILY, #90 CAP 3 Refills 10/26/20 Levothyroxine Sodium (Synthroid) 88 Mcg Tab, 1 TAB PO DAILY, #30 TAB 5 Refills 10/13/20 Methocarbamol (Methocarbamol) 750 Mg Tab, 750 MG PO BID, TAB 10/13/20 Information Source: Patient Mode of Arrival: EMS Timing: Weeks (1) Duration: Since onset Quality: Aching Vomitus: None Stool: Empty Severity: Moderate Recent: None Recent Hx of: None Pain Location: Diffuse Associated sign and symptoms: Nausea, Constipation, Abdominal Pain Past Medical History PAST MEDICAL HISTORY: Anxiety, Depression, DM, GERD, High Lipids, HTN, PUD, Thyroid Surgical History: Cholecystectomy, Hysterectomy, 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 History Family History Family History: No family hx of Cancer Social History Smoker: Non-Smoker Alcohol: Denies ETOH Use Drugs: Denies Drug Use Lives In: Home Constitutional: reports: malaise, weakness; denies: chills, diaphoresis, fatigue, fever, sweats, others EENTM: denies: blurred vision, double vision, ear bleeding, ear discharge, ear drainage, ear pain, ear ringing, eye pain, eye redness, hearing loss, mouth pain, mouth swelling, nasal discharge, nose bleeding, nose congestion, nose pain, photophobia, tearing, throat pain, throat swelling, voice changes, others Respiratory: denies: cough, hemoptysis, orthopnea, SOB at rest, shortness of breath, SOB with excertion, stridor, wheezing, others Cardiovascular: denies: chest pain, dizzy spells, diaphoresis, Dyspnea on exertion, edema, irregular heart beat, left arm pain, lightheadedness, palpitations, PND, syncope, others Gastrointestinal: reports: abdominal pain, constipated, poor appetite; denies: abdomen distended, blood streaked bowels, diarrhea, dysphagia, difficulty swallowing, hematemesis, melena, nausea, poor fluid intake, rectal bleeding, rectal pain, vomiting, others Genitourinary: denies: abnormal vagina bleeding, burning, dyspareunia, dysuria, flank pain, frequency, hematuria, incontinence, pain, , vagina discharge, urgency, others Neurological: denies: dizziness, fainting, headache, left sided numbness, left sided weakness, numbness, paresthesia, pre-existing deficit, right sided numbness, right sided weakness, seizure, speech problems, tingling, tremors, weakness, others Musculoskeletal: denies: back pain, gout, joint pain, joint swelling, muscle pain, muscle stiffness, neck pain, others Integumetry: denies: bruises, change in color, change in hair/nails, dryness, laceration, lesions, lumps, rash, wounds, others Allergic/Immunocompromised: denies: Difficulty Healing, Frequent Infections, Hives, Itching, others Hematologic/Lymphatic: denies: anemia, blood clots, easy bleeding, easy bruising, swollen glands, others Endocrine: reports: unexplained weight loss; denies: excessive hunger, excessive sweating, excessive thirst, excessive urination, flushing, intolerance to cold, intolerance to heat, unexplained weight gain, others Psychiatric: denies: anxiety, bipolar disorder, depression, hopeless, panic disorder, schizophrenia, sleepless, suicidal, others All Other Systems: Reviewed and Negative Physical Exam General Appearance: Moderate Distress, Thin HEENT: Normal ENT Inspection, Pharynx Normal, TMs Normal Neck: Full Range of Motion, Non-Tender, Normal, Normal Inspection Respiratory: Chest Non-Tender, Lungs Clear, No Accessory Muscle Use, No Respiratory Distress, Normal Breath Sounds Cardiovascular: No Edema, No JVD, No Murmur, No Gallop, Normal Peripheral Pulses, Regular Rate/Rhythm Breast Exam: Deferred Gastrointestinal: No Organomegaly, Non Tender, No Pulsatile Mass, Normal Bowel Sounds, Soft Genitalia: Deferred Pelvic: Deferred Rectal: Deferred Extremities: No calf tenderness, No pedal edema Musculoskeletal : Apperance: Normal Neurologic: Alert, No Motor Deficits, No Sensory Deficits Cerebellar Function: NOT DONE Reflexes: NOT DONE Skin: Dry, Normal Color, Warm Peripheral Pulses: 3+ Radial (R), 3+ Radial (L) Lymphatic: No Adenopathy EKG EKG : Pulse Rate (adult): 67 Cardiac Rhythm: NSR Was a procedure done? Was a procedure done?: No GI differential Dx Differential Diagnosis: Constipation, Diverticular disease, Esophagitis, Gastritis/PUD, Gastroenteritis, Dehydration, Viral, Impaction, Malnutrition, Ischemic Bowel X-Ray, Labs, Meds, VS Vital Signs Date Time Temp Pulse Resp B/P (MAP) Pulse Ox O2 Delivery O2 Flow Rate FiO2 02/09/25 13:45 98.0 80 12 180/83 (115) 96 98.0 02/09/25 13:38 80 12 180/83 02/09/25 13:08 70 17 200/81 02/09/25 13:00 Room Air* 0 21 02/09/25 12:45 98.0 70 17 200/81 (120) 96 98.0 02/09/25 12:41 67 02/09/25 12:13 67 02/09/25 12:12 98.0 72 16 210/90 97 98.0 Lab Test 02/09/25 12:45 Range/Units White Blood Count 7.0 4.4-10.8 10^3/uL Red Blood Count 5.34 H 4.0-5.20 10^6/uL Hemoglobin 11.4 L 12.2-16.2 g/dL Hematocrit 36.9 36.0-46.0 % Mean Corpuscular Volume 69.0 L 80.0-100.0 fL Mean Corpuscular Hemoglobin 21.4 L 28.0-32.0 pg Mean Corpuscular Hemoglobin Concent 31.0 L 32.0-36.0 g/dL Red Cell Distribution Width 18.3 H 11.8-14.3 % Platelet Count 324 140-450 10^3/uL Mean Platelet Volume 8.5 6.9-10.8 fL Neutrophils (%) (Auto) 69.0 37.0-80.0 % Lymphocytes (%) (Auto) 23.6 10.0-50.0 % Monocytes (%) (Auto) 7.2 0.0-12.0 % Eosinophils (%) (Auto) 0.0 0.0-7.0 % Basophils (%) (Auto) 0.2 0.0-2.0 % Neutrophils # (Auto) 4.8 1.6-8.6 10 ^3/uL Lymphocytes # (Auto) 1.7 0.4-5.4 10 ^3/uL Monocytes # (Auto) 0.5 0-1.3 10 ^3/uL Eosinophils # (Auto) 0 0-0.8 10 ^3/uL Basophils # (Auto) 0 0-0.2 10 ^3/uL Nucleated Red Blood Cells 0.1 % Sodium Level 136 136-145 mmol/L Potassium Level 3.0 L 3.5-5.1 mmol/L Chloride Level 96 L 98-107 mmol/L Carbon Dioxide Level 30 20-31 mmol/L Anion Gap 10 5-15 Blood Urea Nitrogen 24 H 9-23 mg/dL Creatinine 0.89 0.550-1.02 mg/dL Glomerular Filtration Rate Calc 68 >90 mL/min BUN/Creatinine Ratio 27.0 H 10.0-20.0 Serum Glucose 132 H 74-106 mg/dL Lactic Acid Level 1.5 0.4-2.0 mmol/L Calcium Level 9.5 8.7-10.4 mg/dL Total Bilirubin 0.7 0.2-1.0 mg/dL Aspartate Amino Transferase (AST) 15 13-40 U/L Alanine Aminotransferase (ALT) 15 7-40 U/L Alkaline Phosphatase 112 46-116 U/L Total Protein 6.8 5.7-8.2 g/dL Albumin 4.7 3.2-4.8 g/dL Current Medications Medications (Trade) Dose Ordered Sig/Shaila Route Start Time Stop Time Status Last Admin Ondansetron HCl (Zofran) 4 mg ONCE ONCE IV 02/09/25 12:30 02/09/25 12:31 DC 02/09/25 13:08 Hydromorphone HCl (Dilaudid Injection) 1 mg ONCE ONCE IV 02/09/25 12:30 02/09/25 12:31 DC 02/09/25 13:08 Sodium Chloride 1,000 ml @ 1,000 mls/hr Q1H ONCE IVB 02/09/25 12:30 02/09/25 13:29 DC 02/09/25 13:09 Patient alert. Vitals stable. She has not been tolerating diet. Answering questions. Underweight. Establish intravenous access. Was given fluids. Was given pain medication. Was given Zofran. WBC within normal limits. Blood pressure elevated. Was given clonidine. Continue to monitor. Time of 1ST Reevaluation: 12:35 Reevaluation 1ST: Unchanged Patient Education/Counseling: Diagnosis, Treatment, Prognosis Family Education/Counseling: No Family Present SEPSIS Sepsis Screen Date sepsis recognized/suspect: Feb 09, 2025 Time Sepsis recognized/suspect: 1218 Recent Procedure: No On Antibiotic Therapy: No Respiratory Rate >20: No Heart Rate >90: No Temp<36 C (96.8 F) or >38.3 C: No SBP <90 or MAP <65 mmHG: No New Acute Mental Status Change: No Is the patient on CPAP, BIPAP,: No Physician Orders Urinalysis (02/09/25 12:19) Ct Ab Pel Wo Con-No Oral Or Iv (02/09/25 12:19) Blood Culture (02/09/25 12:19) Electrocardigram (02/09/25 12:23) Clonidine Hcl Tablet (Catapres Tablet) (02/09/25 14:00) Vital Signs Date Time Temp Pulse Resp B/P (MAP) Pulse Ox O2 Delivery O2 Flow Rate FiO2 02/09/25 13:45 98.0 80 12 180/83 (115) 96 98.0 02/09/25 13:38 80 12 180/83 02/09/25 13:08 70 17 200/81 02/09/25 13:00 Room Air* 0 21 02/09/25 12:45 98.0 70 17 200/81 (120) 96 98.0 02/09/25 12:41 67 02/09/25 12:13 67 02/09/25 12:12 98.0 72 16 210/90 97 98.0 Laboratory Tests Test 02/09/25 12:45 Lactic Acid Level 1.5 mmol/L (0.4-2.0) White Blood Count 7.0 10^3/uL (4.4-10.8) Medications Medications Dose Ordered Sig/Shaila Route Start Time Stop Time Status Last Admin Dose Admin Hydromorphone HCl 1 mg ONCE ONCE IV 02/09/25 12:30 02/09/25 12:31 DC 02/09/25 13:08 Ondansetron HCl 4 mg ONCE ONCE IV 02/09/25 12:30 02/09/25 12:31 DC 02/09/25 13:08 Sodium Chloride 1,000 ml @ 1,000 mls/hr Q1H ONCE IVB 02/09/25 12:30 02/09/25 13:29 DC 02/09/25 13:09 Departure 1 Departure Time of Disposition: 13:57 Impression: Primary Impression: Failure to thrive Qualified Codes: R62.7 - Adult failure to thrive Additional Impression: Hypertensive emergency Disposition: ADMITTED INPATIENT Admit to: Med Surg Condition: Guarded Critical Care Note Critical Care Time?: Yes (90 min-critical care time only) Stability Stability form required: No I personally scribed for PHILIP HOOPER MD ([email or web address]) on 02/09/25 at 12:40. Electronically submitted by Felisa Chase ([facility]). I personally scribed for PHILIP HOOPER MD ([email or web address]) on 02/09/25 at 12:41. Electronically submitted by Felisa Chase ([facility]). PHILIP HOOPER MD Feb 09, 2025 12:40
[2025-02-09] MEDS: HYDROmorphone HCL 2 MG/ML VL/or syr IV ONE (13:08)
[2025-02-09] MEDS: ONDANSETRON HCL 4 MG/2 ML VIAL IV ONE (13:08)
[2025-02-09] MEDS: SODIUM CHLORIDE 0.9% 1,000 ML IVB ONE (13:09)
--- NOTE | 2025-02-09 13:10 | DVH ---
Exam: CT CT AB PEL WO CON-NO ORAL OR IV History: colitis Comparison Study: CT CT AB PEL WO CON-NO ORAL OR IV on DOS: 09/17/24, CT ABD PELVIS WO CONTRAST on DOS : 02/14/21 Technique: Multidetector spiral CT of the abdomen was performed from lung bases to pubic symphysis. Imaging was performed without IV contrast. Axial, coronal and sagittal multiplanar reformats were ob tained from the axial data set by the technologist. Radiation Dose : 1. Abdomen/Pelvis: CTDIvol 5.07 mGy, DLP 3.92 mGy*cm. Findings: Evaluation of solid organs is limited due to lack of intravenous contrast use. Lung Bases: No acute or significant lung base finding. Normal heart size. No pleural or pericardial effusion. Liver: The liver is normal in size. No focal lesions. Gallbladder and Biliary Tree: Unremarkable Spleen: Unremarkable Pancreas: The pancreas is grossly normal in appearance. Adrenal Glands: Unremarkable Kidneys: Kidneys are grossly normal without calculi or hydronephrosis. Bladder: Grossly unremarkable for degree of distention. Bowel: The stomach is grossly normal in appearance. Mild wall thickening of the distal colon may refl ect mild infectious/inflammatory colitis. Scattered colonic diverticula The appendix is not visuali zed; however, no secondary findings of acute appendicitis identified. Ascites: Absent Lymphadenopathy: No mesenteric, retroperitoneal or periportal lymphadenopathy. Abdominal Wall and Mesentery: Unremarkable. Vasculature: The visualized abdominal aorta is normal in size and caliber. Evaluation of abdominal a nd pelvic vessels is limited due to lack of intravenous contrast. Pelvic Organs: Unremarkable Musculoskeletal: No aggressive focal bony lesions, acute fractures or dislocation. Surgical fixation hardware seen throughout the lumbar spine. IMPRESSION: 1. Mild wall thickening of the distal colon may reflect mild infectious/inflammatory colitis. Radiation optimization: All CT scans at this facility use at least one of these dose optimization la hniques: automated exposure control mA and/or kV adjustment per patient size (includes targeted exam s where dose is matched to clinical indication) or iterative reconstruction.
[2025-02-09 13:27] LABS: Hematocrit 36.9 % (36.0-46.0); Hemoglobin 11.4 g/dL (12.2-16.2); Mean Corpuscular Hemoglobin 21.4 pg (28.0-32.0); Nucleated Red Blood Cells % 0.1 %
[2025-02-09 13:29] LABS: Mean Corpuscular Volume 69.0 fL (80.0-100.0)
[2025-02-09 13:36] LABS: Alanine Aminotransferase 15 U/L (7-40); Albumin 4.7 g/dL (3.2-4.8); Alkaline Phosphatase 112 U/L (46-116); Anion Gap 10 (5-15); BUN/Creatinine Ratio 27.0 (10.0-20.0); Calcium 9.5 mg/dL (8.7-10.4); Carbon Dioxide 30 mmol/L (20-31); Total Protein 6.8 g/dL (5.7-8.2)
[2025-02-09 13:37] LABS: Bilirubin, Total 0.7 mg/dL (0.2-1.0); Blood Urea Nitrogen 24 mg/dL (9-23); Chloride 96 mmol/L (98-107); Glucose 132 mg/dL (74-106); Potassium 3.0 mmol/L (3.5-5.1); Sodium 136 mmol/L (136-145)
[2025-02-09 15:06] LABS: Urine Protein, UAD 1+ (Negative)
--- NOTE | 2025-02-09 16:26 | ECG ---
[facility] Test Date: 2025-02-09 Test Time: 12:13:19 Pat Name: JESSICA RIVERA Department: [facility] ED Patient ID: [facility]-[id number] Room: Gender: F [employer] Hel[employer]: ZEUS : 1950 Requested By: PHILIP HOOPER Order Number: [id number] Reading MD: Edin Reynolds Measurements Intervals [place] Rate: 67 P: -41 RI: 140 QRS: 52 QRSD: 96 T: 77 QT: 563 QTc: 595 Interpretive Statements Sinus rhythm Abnormal T, consider ischemia, lateral leads Prolonged QT interval Electronically Signed On 02-09-2025 17:04:21 PDT by Edin Reynolds Please click the below link to view image of tracing.
[2025-02-09] MEDS: HYDROcodone-ACET 10/325MG TAB PO ONE (16:45)
[2025-02-09] MEDS ORDERED: ALBUTEROL SULF HFA 90MCG INH 200DOSE IN PRN (17:00)
[2025-02-09] MEDS ORDERED: NITROGLYCERIN 0.4 MG SL TAB SL PRN (17:00)
[2025-02-09] MEDS ORDERED: MORPHINE SULFATE INJ 2 MG/ml SYRG IV PRN ×2 (17:00)
[2025-02-09 17:16] LABS: Total Iron Binding Capacity 390.0 ug/dL (250-425)
[2025-02-09 17:19] LABS: Iron 23.0 ug/dL (50-170)
[2025-02-09 17:20] LABS: Thyroid Stimulating Hormone 0.92 uIU/mL (0.55-4.78)
[2025-02-09] MEDS: SOD CHL 0.45% WITH 20MEQ KCL 1,000 ML IV SCH (17:28)
[2025-02-09 17:52] LABS: Ferritin 9.6 ng/mL (10-291); Free T4 (Free Thyroxine) 2.01 ng/dL (0.89-1.76)
--- NOTE | 2025-02-09 19:52 | DVHINCON2 ---
Date of service: Feb 09, [address] Lange Reason for Consultation Anemia weakness abdominal pains anorexia weight loss History of Present Illness This 74-year-old female with a history of hypertension peptic ulcer disease diabetes anemia and GERD presented to the emergency room with complaints of diffuse abdominal pain associated with anorexia weakness constipation and nausea Also in the dose lost about 30 lb in the last one month to six weeks. Per family Patient is a poor historian unable to get much Claims she had properly and endoscopy of more than five years ago as well as a colonoscopy she is not sure of the findings With CT scans done without contrast showed some mild thickening of the colon possible mild colitis No Gross GI bleeding Past Medical History Diabetes hypertension history of possible ulcer disease in the past thyroid and GERD Past Surgical History Cholecystectomy hysterectomy tonsillectomy Family History: Asthma G8 FATHER Cervical cancer G8 MOTHER G8 SISTER G8 SISTER Chronic obstructive pulmonary disease G8 FATHER Family History Non contributory Social History Denies smoking or drinking Allergies: Coded Allergies: NO KNOWN ALLERGIES (Unverified , 03/29/10) Home Meds Active Scripts Misc. Devices (Blood Pressure Monitor) Monitor Kit, EA XX DAILY, #1 Prov:DUSTY QUINTANA MD 09/19/24 Lactulose (Lactulose) 10 Gm/15 Ml Eduarda, 10 GM PO BID, #240 ML Prov:DUSTY QUINTANA MD 09/19/24 Clonidine Hydrochloride (Clonidine Hcl) 0.1 Mg Tab, 0.1 MG PO BID, #90 TAB Prov:DUSTY QUINTANA MD 09/19/24 Metoprolol Succinate (Metoprolol Succinate Er) 50 Mg Tab, 50 MG PO DAILY, #30 MG Prov:DUSTY QUINTANA MD 09/19/24 Amlodipine Besylate (Amlodipine Besylate) 5 Mg Tab, 10 MG PO DAILY, #60 MG Prov:DUSTY QUINTANA MD 09/19/24 Albuterol Sulfate (Albuterol Sulfate) 0.083 % Neb, 1 VIAL NEB Q4HPRN, #50 VIAL Prov:ANGELLA SOTO MD 04/28/24 Albuterol Sulfate (Albuterol Sulfate Hfa) 108 Mcg/Act Aer, 108 MCG IN Q4HP PRN, #1 AER Prov:ANGELLA SOTO MD 04/28/24 Naproxen (NAPROSYN TABLET) 500 Mg Tb, 1 TAB PO BID PRN, #20 TAB 1 Refill Prov:KASH RAMOS MD 05/13/23 Cyclobenzaprine HCl (Cyclobenzaprine Hydrochlo) 10 Mg Tab, 10 MG PO TID PRN, #21 TAB Prov:KASH RAMOS MD 05/13/23 Trazodone HCl (Trazodone Hydrochloride) 50 Mg Tab, 50 MG PO QHSP PRN, #20 TAB Prov:RYAN BARONE MD 10/27/20 Gabapentin (Gabapentin) 300 Mg Cap, 600 MG PO TID, #90 CAP Prov:RYAN BARONE MD 10/27/20 Ondansetron (Zofran) 4 Mg Tab, 1 TAB PO Q6HR PRN, #20 TAB Prov:RYAN BARONE MD 10/26/20 Reported Medications Hydrocodone-Acetaminophen (Hydrocodone Bitartrate/AC 10-325 mg) 1 Tab Tab, 1 TAB PO Q6HP, TAB 10/26/20 Omeprazole (Gnp Omeprazole) 20 Mg Tab, 40 MG PO DAILY, TAB 10/26/20 Atorvastatin Calcium (ATORVASTATIN CALCIUM) 40 Mg Tab, 1 TAB PO DAILY, #30 TAB 5 Refills 10/26/20 Duloxetine Hcl (Cymbalta) 60 Mg Cap, 1 CAP PO DAILY, #90 CAP 3 Refills 10/26/20 Levothyroxine Sodium (Synthroid) 88 Mcg Tab, 1 TAB PO DAILY, #30 TAB 5 Refills 10/13/20 Methocarbamol (Methocarbamol) 750 Mg Tab, 750 MG PO BID, TAB 10/13/20 Current Medications Current Medications Medications (Trade) Dose Ordered Sig/Shaila Route PRN Reason Start Time Stop Time Status Last Admin Nitroglycerin (Ntrostat Sublingual) 0.4 mg Q5MINP PRN SL FOR CHEST PAIN 02/09/25 17:00 Morphine Sulfate 2 mg Q30M PRN IV FOR CHEST PAIN 02/09/25 17:00 Potassium Chloride/Sodium Chloride 1,000 ml @ 75 mls/hr [id number] IV 02/09/25 17:00 02/09/25 17:28 Clonidine HCl (Catapres Tablet) 0.1 mg Q4HP PRN PO SBP>150 02/09/25 17:00 Ondansetron HCl (Zofran) 4 mg Q4HPRN PRN IV NAUSEA / VOMITING 02/09/25 17:00 Morphine Sulfate 2 mg Q4HPRN PRN IV SEVERE PAIN (7-10 PAIN SCALE) 02/09/25 17:00 Oxycodone/ Acetaminophen (Percocet 5/ 325MG Tablet) 1 tab Q4HP PRN PO MODERATE PAIN (4-6 PAIN SCALE) 02/09/25 17:00 Sennosides (Senokot Tablet) 8.6 mg HS PO 02/09/25 22:00 Albuterol (Ventolin Hfa) 180 mcg Q4HP PRN IN SHORTNESS OF BREATH 02/09/25 17:00 Hold Amlodipine Besylate (Norvasc Tablet) 10 mg DAILY PO 02/10/25 10:00 Clonidine HCl (Catapres Tablet) 0.1 mg BID PO 02/09/25 22:00 Cyclobenzaprine HCl (Flexeril Tablet) 10 mg TID PRN PO CHRONIC PAIN/ MUSCLE PAIN 02/09/25 17:00 Gabapentin (Neurontin Capsule) 600 mg TID PO 02/09/25 22:00 Levothyroxine Sodium (Synthroid Tablet) 100 mcg QAM@0600 PO 02/10/25 06:00 Metoprolol Succinate (Toprol Xl) 50 mg DAILY PO 02/10/25 10:00 Trazodone HCl (Desyrel) 50 mg QHSP PRN PO FOR INSOMNIA 02/09/25 17:00 Atorvastatin Calcium (Lipitor) 40 mg HS PO 02/09/25 22:00 Duloxetine HCl (Cymbalta Capsule) 60 mg DAILY PO 02/10/25 10:00 Lactulose 15 ml BID PO 02/09/25 22:00 Pantoprazole Sodium (Protonix Tablet) 40 mg DAILY@0700 PO 02/10/25 07:00 Review of Systems Noncontributory Vital Signs Vital Signs Date Time Temp Pulse Resp B/P (MAP) Pulse Ox O2 Delivery O2 Flow Rate FiO2 02/09/25 14:55 6 11 120/49 (72) 96 02/09/25 13:45 98.0 98.0 02/09/25 13:00 Room Air* 0 21 Physical Exam Poorly built and nourished cachectic looking female in no acute distress except for some abdominal pain ENT examination no pallor no icterus Lungs are clear Cardiovascular unremarkable Abdomen very cachectic looking and skinny with tenderness in both upper quadrants as well as periumbilically No rigidity no guarding no masses Bowel sounds normal Extremities reveal no edema no varicosities no clubbing Neurological grossly intact Labs/Diagnostic Data Labs Test 02/09/25 14:48 02/09/25 12:45 Range/Units Urine Color Yellow Yellow Urine Clarity Clear Clear Urine pH 6.5 5.0-9.0 Urine Specific [place] 1.020 1.001-1.035 Urine Protein 1+ H Negative Urine Ketones Negative Negative Urine Blood Trace H Negative /uL Urine Nitrite Negative Negative Urine Bilirubin Negative Negative Urine Urobilinogen Normal Negative mg/dL Urine Leukocyte Esterase Negative Negative /uL Urine RBC 5 0 - 4 /hpf Urine Microscopic WBC 1 0-5 /HPF Urine Squamous Epithelial Cells Few <5 /hpf Urine Bacteria None seen None Seen /hpf Urine Hyaline Casts Few 0 - 2 /lpf Urine Glucose Trace Normal mg/dL White Blood Count 7.0 4.4-10.8 10^3/uL Red Blood Count 5.34 H 4.0-5.20 10^6/uL Hemoglobin 11.4 L 12.2-16.2 g/dL Hematocrit 36.9 36.0-46.0 % Mean Corpuscular Volume 69.0 L 80.0-100.0 fL Mean Corpuscular Hemoglobin 21.4 L 28.0-32.0 pg Mean Corpuscular Hemoglobin Concent 31.0 L 32.0-36.0 g/dL Red Cell Distribution Width 18.3 H 11.8-14.3 % Platelet Count 324 140-450 10^3/uL Mean Platelet Volume 8.5 6.9-10.8 fL Neutrophils (%) (Auto) 69.0 37.0-80.0 % Lymphocytes (%) (Auto) 23.6 10.0-50.0 % Monocytes (%) (Auto) 7.2 0.0-12.0 % Eosinophils (%) (Auto) 0.0 0.0-7.0 % Basophils (%) (Auto) 0.2 0.0-2.0 % Neutrophils # (Auto) 4.8 1.6-8.6 10 ^3/uL Lymphocytes # (Auto) 1.7 0.4-5.4 10 ^3/uL Monocytes # (Auto) 0.5 0-1.3 10 ^3/uL Eosinophils # (Auto) 0 0-0.8 10 ^3/uL Basophils # (Auto) 0 0-0.2 10 ^3/uL Nucleated Red Blood Cells 0.1 % Sodium Level 136 136-145 mmol/L Potassium Level 3.0 L 3.5-5.1 mmol/L Chloride Level 96 L 98-107 mmol/L Carbon Dioxide Level 30 20-31 mmol/L Anion Gap 10 5-15 Blood Urea Nitrogen 24 H 9-23 mg/dL Creatinine 0.89 0.550-1.02 mg/dL Glomerular Filtration Rate Calc 68 >90 mL/min BUN/Creatinine Ratio 27.0 H 10.0-20.0 Serum Glucose 132 H 74-106 mg/dL Lactic Acid Level 1.5 0.4-2.0 mmol/L Calcium Level 9.5 8.7-10.4 mg/dL Iron Level 23 L 50-170 ug/dL Total Iron Binding Capacity 390 250-425 ug/dL Percent Iron Saturation 5.9 L 15-50 % Ferritin 9.6 L 10-291 ng/mL Total Bilirubin 0.7 0.2-1.0 mg/dL Aspartate Amino Transferase (AST) 15 13-40 U/L Alanine Aminotransferase (ALT) 15 7-40 U/L Alkaline Phosphatase 112 46-116 U/L Lactate Dehydrogenase 220 120-246 U/L Total Protein 6.8 5.7-8.2 g/dL Albumin 4.7 3.2-4.8 g/dL Thyroid Stimulating Hormone (TSH) 0.92 0.55-4.78 uIU/mL Free Thyroxine (T4) Calculated 2.01 H 0.89-1.76 ng/dL Assessment 74-year-old female with a history of diabetes anemia hypertension hypothyroidism GERD presenting with complaints of weakness tiredness weight loss anorexia and constipation Examination unremarkable except for cachectic looking and weak Labs hemoglobin is 11.4 rest of the labs are unremarkable Scan showed some nonspecific thickening of the colon possible infectious colitis as per the radiology but done without contrast Clinical impression Severe weight loss undetermined etiology The mild anemia and anorexia constipation and GI problems or GI malignancy or other upper GI pathology to be ruled out Plan/Recommendation Recommend Stool studies for occult blood Stool for O&P C&S also in view of the abnormal CAT scan will recommend a dedicated CT scan of the abdomen and pelvis with oral and IV contrast in view of the weight loss and GI symptoms Depending upon the above may need EGD and colon evaluation also ensure there was no malignancy or severe diabetic gastroparesis or colitis or bezoar or other pathology Thank you Dr. Burton Plan discussed with: Patient JANEY BURTON MD Feb 09, 2025 19:52
[2025-02-09 20:00] VITALS: PULSE 74; RESP 12; O2SAT 97
[2025-02-09] MEDS: OXYCODONE W/ ACETAMINOPHEN 5/325MG TABLET PO PRN (20:28)
[2025-02-09] MEDS: ONDANSETRON HCL 4 MG/2 ML VIAL IV PRN (20:28)
[2025-02-09 21:01] VITALS: BP 112/51; PULSE 74; RESP 12; TEMP 97.5; O2SAT 96
[2025-02-09] MEDS: ATORVASTATIN 20 MG TAB PO SCH (22:00)
[2025-02-09] MEDS: LACTULOSE 20Gm/30ML SOLN PO SCH (22:00)
[2025-02-09] MEDS: SENNA 8.6 MG TAB PO SCH (22:00)
[2025-02-09] MEDS: GABAPENTIN 300 MG CAP PO SCH (22:00)
[2025-02-10] MEDS: SODIUM CHLORIDE 0.9% 1,000 ML IV ONE (00:35)
--- NOTE | 2025-02-10 01:11 | DVHHP2 ---
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 74-year-old female with past medical history of hypertension, GERD, constipation presents with complaints of ongoing abdominal pain. Patient is endorsing that she has chronic constipation. Also endorsing nausea. Family also reported 30 lb weight loss. On arrival to the emergency department patient was found to be hypertensive with blood pressure 210/90. CT of the abdomen and pelvis without contrast impression reads mild wall thickening of the colon may reflect mild infectious/ inflammatory colitis. At this time patient denies fevers, chills, shortness of breath, palpitations, chest pain, leg swelling, dysuria, hematemesis, hematochezia, melena. Cardiovascular: HTN Pulmonary: COPD GI: Constipation, GERD Psych: Anxiety, Depression Smoke: No ALCOHOL: none Drugs: None Lives: with Family Review of Systems Constitutional: Yes: Weakness, Malaise; No: Fever, Chills, Sweats, Other Eyes: No: Pain, Vision change, Conjunctivae inflammation, Eyelid inflammation, Other, Redness ENT: No: Ear pain, Ear discharge, Nose pain, Nose discharge, Nose congestion, Mouth pain, Mouth swelling, Throat pain, Throat swelling, Other Respiratory: No: Cough, Dry, Shortness of breath, SOB with excertion, Wheezing, Hemoptysis, Pleuritic Pain, Sputum, Wheezing, Other Cardiovascular: No: Chest Pain, Palpitations, Orthopnea, Paroxysmal Noc. Dyspnea, Edema, Lt Headedness, Other Gastrointestinal: Nausea, Vomiting, Abdominal Pain, Constipation; No: Diarrhea, Melena, Hematochezia, Other Genitourinary: No Dysuria, No Frequency, No Incontinence, No Hematuria, No Retention, No Other Musculoskeletal: No: other, neck pain, shoulder pain, arm pain, back pain, hand pain, leg pain, foot pain Skin: No: Rash, Lesions, Jaundice, Bruising, Other Neurological: No: Weakness, Numbness, Incoordination, Change in speech, Confusion, Seizures, Other Allergies: Coded Allergies: NO KNOWN ALLERGIES (Unverified , 03/29/10) Medications Current Medications Medications Dose Ordered Sig/Shaila Route Start Time Stop Time Status Last Admin Dose Admin Nitroglycerin 0.4 mg Q5MINP PRN SL 02/09/25 17:00 Morphine Sulfate 2 mg Q30M PRN IV 02/09/25 17:00 Potassium Chloride/Sodium Chloride 1,000 ml @ 75 mls/hr [id number] IV 02/09/25 17:00 02/09/25 17:28 75 MLS/HR Clonidine HCl 0.1 mg Q4HP PRN PO 02/09/25 17:00 Ondansetron HCl 4 mg Q4HPRN PRN IV 02/09/25 17:00 02/09/25 20:28 4 MG Morphine Sulfate 2 mg Q4HPRN PRN IV 02/09/25 17:00 Oxycodone/ Acetaminophen 1 tab Q4HP PRN PO 02/09/25 17:00 02/09/25 20:28 1 TAB Sennosides 8.6 mg HS PO 02/09/25 22:00 02/09/25 22:00 8.6 MG Albuterol 180 mcg Q4HP PRN IN 02/09/25 17:00 Hold Amlodipine Besylate 10 mg DAILY PO 02/10/25 10:00 Cyclobenzaprine HCl 10 mg TID PRN PO 02/09/25 17:00 Gabapentin 600 mg TID PO 02/09/25 22:00 02/09/25 22:00 600 MG Levothyroxine Sodium 100 mcg QAM@0600 PO 02/10/25 06:00 Metoprolol Succinate 50 mg DAILY PO 02/10/25 10:00 Trazodone HCl 50 mg QHSP PRN PO 02/09/25 17:00 Atorvastatin Calcium 40 mg HS PO 02/09/25 22:00 02/09/25 22:00 40 MG Duloxetine HCl 60 mg DAILY PO 02/10/25 10:00 Lactulose 15 ml BID PO 02/09/25 22:00 02/09/25 22:00 15 ML Pantoprazole Sodium 40 mg DAILY@0700 PO 02/10/25 07:00 Exam Vital Signs Vital Signs Date Time Temp Pulse Resp B/P (MAP) Pulse Ox O2 Delivery O2 Flow Rate FiO2 02/10/25 00:20 68 12 121/69 (86) 02/09/25 22:00 97 02/09/25 21:01 Room Air 0.0 02/09/25 21:01 97.5 21 97.5 General Appearance: Alert, Oriented X3, Cooperative, mild distress, Other (Cachexia, ill-appearing) HEENT: Atraumatic Respiratory: Clear to auscultation, Normal air movement Cardiovascular: Regular rate, Normal S1, Normal S2 Abdominal: Soft Extremities: No clubbing, No cyanosis, No edema, Normal pulses Skin: No rashes, No breakdown Neuro: Normal speech, Strength at 5/5 X4 ext Psych/Mental Status: Mental status NL, Mood NL Labs/Xrays Labs Test 02/09/25 14:48 02/09/25 12:45 Range/Units Urine Color Yellow Yellow Urine Clarity Clear Clear Urine pH 6.5 5.0-9.0 Urine Specific [place] 1.020 1.001-1.035 Urine Protein 1+ H Negative Urine Ketones Negative Negative Urine Blood Trace H Negative /uL Urine Nitrite Negative Negative Urine Bilirubin Negative Negative Urine Urobilinogen Normal Negative mg/dL Urine Leukocyte Esterase Negative Negative /uL Urine RBC 5 0 - 4 /hpf Urine Microscopic WBC 1 0-5 /HPF Urine Squamous Epithelial Cells Few <5 /hpf Urine Bacteria None seen None Seen /hpf Urine Hyaline Casts Few 0 - 2 /lpf Urine Glucose Trace Normal mg/dL White Blood Count 7.0 4.4-10.8 10^3/uL Red Blood Count 5.34 H 4.0-5.20 10^6/uL Hemoglobin 11.4 L 12.2-16.2 g/dL Hematocrit 36.9 36.0-46.0 % Mean Corpuscular Volume 69.0 L 80.0-100.0 fL Mean Corpuscular Hemoglobin 21.4 L 28.0-32.0 pg Mean Corpuscular Hemoglobin Concent 31.0 L 32.0-36.0 g/dL Red Cell Distribution Width 18.3 H 11.8-14.3 % Platelet Count 324 140-450 10^3/uL Mean Platelet Volume 8.5 6.9-10.8 fL Neutrophils (%) (Auto) 69.0 37.0-80.0 % Lymphocytes (%) (Auto) 23.6 10.0-50.0 % Monocytes (%) (Auto) 7.2 0.0-12.0 % Eosinophils (%) (Auto) 0.0 0.0-7.0 % Basophils (%) (Auto) 0.2 0.0-2.0 % Neutrophils # (Auto) 4.8 1.6-8.6 10 ^3/uL Lymphocytes # (Auto) 1.7 0.4-5.4 10 ^3/uL Monocytes # (Auto) 0.5 0-1.3 10 ^3/uL Eosinophils # (Auto) 0 0-0.8 10 ^3/uL Basophils # (Auto) 0 0-0.2 10 ^3/uL Nucleated Red Blood Cells 0.1 % Sodium Level 136 136-145 mmol/L Potassium Level 3.0 L 3.5-5.1 mmol/L Chloride Level 96 L 98-107 mmol/L Carbon Dioxide Level 30 20-31 mmol/L Anion Gap 10 5-15 Blood Urea Nitrogen 24 H 9-23 mg/dL Creatinine 0.89 0.550-1.02 mg/dL Glomerular Filtration Rate Calc 68 >90 mL/min BUN/Creatinine Ratio 27.0 H 10.0-20.0 Serum Glucose 132 H 74-106 mg/dL Lactic Acid Level 1.5 0.4-2.0 mmol/L Calcium Level 9.5 8.7-10.4 mg/dL Iron Level 23 L 50-170 ug/dL Total Iron Binding Capacity 390 250-425 ug/dL Percent Iron Saturation 5.9 L 15-50 % Ferritin 9.6 L 10-291 ng/mL Total Bilirubin 0.7 0.2-1.0 mg/dL Aspartate Amino Transferase (AST) 15 13-40 U/L Alanine Aminotransferase (ALT) 15 7-40 U/L Alkaline Phosphatase 112 46-116 U/L Lactate Dehydrogenase 220 120-246 U/L Total Protein 6.8 5.7-8.2 g/dL Albumin 4.7 3.2-4.8 g/dL Thyroid Stimulating Hormone (TSH) 0.92 0.55-4.78 uIU/mL Free Thyroxine (T4) Calculated 2.01 H 0.89-1.76 ng/dL SEPSIS Sepsis Screen Date sepsis recognized/suspect: Feb 09, 2025 Time Sepsis recognized/suspect: 1999 Recent Procedure: No On Antibiotic Therapy: No Respiratory Rate >20: No Heart Rate >90: No Temp<36 C (96.8 F) or >38.3 C: No SBP <90 or MAP <65 mmHG: No New Acute Mental Status Change: No Is the patient on CPAP, BIPAP,: No Physician Orders Atorvastatin (Lipitor) (02/09/25 22:00) Clear Liq Diet (02/10/25 Breakfast) Ct Abd Pelvis W Con-Oral & Iv (02/09/25 22:12) Npo After Midnight ONCE (02/09/25 22:25) Sodium Chloride 0.9% (02/10/25 00:30) Vital Signs Date Time Temp Pulse Resp B/P (MAP) Pulse Ox O2 Delivery O2 Flow Rate FiO2 02/10/25 00:20 68 12 121/69 (86) 02/09/25 23:34 94/61 02/09/25 22:00 70 18 126/59 (81) 97 02/09/25 22:00 112/61 02/09/25 21:01 96 Room Air 0.0 02/09/25 21:01 97.5 74 12 112/51 96 0.0 21 97.5 02/09/25 21:01 96 Room Air* 0 21 02/09/25 20:00 97.5 72 12 112/51 (71) 97 97.5 02/09/25 20:00 74 12 97 Room Air* 0 21 Medications Medications Dose Ordered Sig/Shaila Route Start Time Stop Time Status Last Admin Dose Admin Acetaminophen/ Hydrocodone Bitart 1 tab ONCE ONCE PO 02/09/25 16:45 02/09/25 16:46 DC 02/09/25 16:45 1 TAB Atorvastatin Calcium 40 mg HS PO 02/09/25 22:00 02/09/25 22:00 40 MG Clonidine HCl 0.1 mg BID PO 02/09/25 22:00 02/10/25 00:44 DC 02/09/25 22:00 0.1 MG Clonidine HCl 0.1 mg ONCE ONCE PO 02/09/25 14:00 02/09/25 14:01 DC 02/09/25 13:55 0.1 MG Gabapentin 600 mg TID PO 02/09/25 22:00 02/09/25 22:00 600 MG Lactulose 15 ml BID PO 02/09/25 22:00 02/09/25 22:00 15 ML Ondansetron HCl 4 mg Q4HPRN PRN IV 02/09/25 17:00 02/09/25 20:28 4 MG Oxycodone/ Acetaminophen 1 tab Q4HP PRN PO 02/09/25 17:00 02/09/25 20:28 1 TAB Potassium Chloride/Sodium Chloride 1,000 ml @ 75 mls/hr [id number] IV 02/09/25 17:00 02/09/25 17:28 75 MLS/HR Sennosides 8.6 mg HS PO 02/09/25 22:00 02/09/25 22:00 8.6 MG Sodium Chloride 1,000 ml @ 1,000 mls/hr Q1H ONCE IV 02/10/25 00:30 02/10/25 01:29 02/10/25 00:35 1,000 MLS/HR Assessment/Plan Assessment/Plan Uncontrolled Hypretension Anemia Hypokalemia Colitis Generalized weakness . Failure to thrive Plan Admit medical Consult gastroenterology. Occult stool. Clear liquid diet. CT abdomen / pelvis with contrast pending. Monitor CBC. BMP. Correct electrolytes as needed. IVF Continue home medications. As needed antihypertensive for optimal BP management. Physical therapy evaluation. GI ppx protonix / DVT ppx SCD Plan discussed with: Patient My Orders Orders - COCO POLK NP Procedure Category Date Status Time Ct Abd Pelvis W CT 02/09/25 Logged Con-Oral & Iv 22:12 Npo After Midnight STEPHEN 02/09/25 In Process 22:25 Sodium Chloride 0.9% PHA 02/10/25 In Process 00:30 Date of Service: Feb 10, 2025 Billing Provider: DUSTY QUINTANA MD Common Visit Codes: NOT BILLABLE DUSTY QUINTANA MD 02/10/25 1606: Review of Systems Allergies: Coded Allergies: NO KNOWN ALLERGIES (Unverified , 03/29/10) Additional Comments Additional Comments Additional Comments Patient is seen and evaluated. Chart is reviewed. Discussed with the GI physician. Patient is seen evaluated and H&P is done by nurse practitioner. I agree with his evaluation, documentation, assessment and care plan as outlined. COCO POLK NP Feb 10, 2025 01:11 DUSTY QUINTANA MD Feb 10, 2025 16:06
[2025-02-10] MEDS ORDERED: ALBUTEROL SULF 2.5 MG/0.5ML(0.5%) NEB SOLN NEB PRN (05:30)
[2025-02-10] MEDS: LEVOTHYROXINE SODIUM 100 MCG TAB PO SCH (06:24)
[2025-02-10 07:55] LABS: INR 1.04 (0.9-1.15); Partial Thromboplastin Time 23.4 SEC (24.5-34.5); Prothrombin Time 11.0 sec (9.3-11.8)
[2025-02-10] MEDS: PANTOPRAZOLE 40 MG TAB PO SCH (08:04)
[2025-02-10] MEDS: METOPROLOL SUCCINATE XL 50 MG TAB PO SCH (08:06)
[2025-02-10 08:20] VITALS: O2SAT 96
[2025-02-10] MEDS: OMNIPAQUE 12mg/ml 500ml ORAL SOLUTION PO ONE (09:33)
[2025-02-10] MEDS: IOHEXOL 300 MG/ML 100ML BOTTLE IJ ONE (09:36)
--- NOTE | 2025-02-10 12:30 | DVH ---
Exam: CT CT ABD PELVIS W CON-ORAL IV History: Abdominal pain COMPARISON: CT CT AB PEL WO CON-NO ORAL OR IV on DOS: 02/09/25, CT CT CHEST/AB/PL W CON- IV ONLY on D OS: 09/19/24, CT CT AB PEL WO CON-NO ORAL OR IV on DOS: 09/17/24, CT ABD PELVIS WO CONTRAST on DOS: , CT AB PEL WITH IV CON ONLY on DOS: 10/26/20 Technique: Multidetector spiral CT of the abdomen and pelvis was performed from lung bases to pubic s ymphysis. Intravenous contrast was administered during this examination. Portal venous imaging was o btained. Axial, coronal and sagittal multiplanar reformats were performed by the technologist on a [employer] workstation. Radiation Dose : 1. Abdomen/Pelvis: CTDIvol 5.07mGy, DLP 244.52 mGy*cm. Findings: LOWER CHEST: Unremarkable ABDOMEN/PELVIS: Liver is unremarkable. Cholecystectomy with expected mild biliary ductal dilatation. The pancreas, s pleen, adrenal glands, and kidneys are unremarkable. No bowel obstruction or other acute bowel abnormality. The appendix is not visualized; however, there are no secondary signs of acute appendicitis Moderately distended urinary bladder. Hysterectomy. No adnexal masses. Scattered plaque throughout the abdominal aorta and bilateral iliofemoral arteries. No abdominal aor tic aneurysm. No abdominal or pelvic lymphadenopathy. MUSCULOSKELETAL: Multilevel posterior fusion and decompression throughout the lumbar spine. Scoliosis. Multilevel de generative changes with endplate sclerosis and disc space narrowing. Anterior fusion at L5-S1. No yael dware abnormality. IMPRESSION: Moderately distended urinary bladder. Otherwise, no acute abdominal or pelvic finding. Cholecystectomy Hysterectomy Radiation optimization: All CT scans at this facility use at least one of these dose optimization la hniques: automated exposure control mA and/or kV adjustment per patient size (includes targeted exam s where dose is matched to clinical indication) or iterative reconstruction.
[2025-02-10 16:04] VITALS: PULSE 78; RESP 18; O2SAT 95
[2025-02-10] MEDS: IRON SUCROSE COMPLEX 110 ML IV SCH (16:47)
[2025-02-10 17:06] VITALS: BP 101/74; PULSE 71; RESP 18; TEMP 97.5; O2SAT 99
[2025-02-10] MEDS: Ensure Pudding Vanilla 4 oz Cup PO SCH (17:46)
[2025-02-10 18:24] VITALS: O2SAT 94
[2025-02-10 20:00] VITALS: PULSE 70; RESP 18; O2SAT 95
[2025-02-10 21:00] VITALS: BP 140/65; PULSE 70; RESP 18; TEMP 98.6; O2SAT 95
--- NOTE | 2025-02-10 21:56 | DVHPN2 ---
Progress Note - Dictate Date Seen: Feb 10, 2025 Has the PT tested + for MRSA If YES, has PT been informed?: No Medical Necessity Reason Pt with a Central, PICC or Fol: No Subjective Patient is feeling slightly better still weak and tired Nausea no vomiting vital signs Vital Sign Date Time Temp Pulse Resp B/P (MAP) Pulse Ox O2 Delivery O2 Flow Rate FiO2 02/10/25 21:00 98.6 70 18 140/65 (90) 95 98.6 02/10/25 18:24 Room Air 02/10/25 18:24 0 21 Total Intake and Output 02/09/25 02/09/25 02/10/25 15:00 23:00 07:00 Intake Total 1000 ml 375 ml 1075 ml Balance 1000 ml 375 ml 1075 ml medications Current Medications Medications Dose Ordered Sig/Shaila Route Start Time Stop Time Status Last Admin Dose Admin Nitroglycerin 0.4 mg Q5MINP PRN SL 02/09/25 17:00 Morphine Sulfate 2 mg Q30M PRN IV 02/09/25 17:00 Potassium Chloride/Sodium Chloride 1,000 ml @ 75 mls/hr [id number] IV 02/09/25 17:00 02/10/25 09:32 75 MLS/HR Clonidine HCl 0.1 mg Q4HP PRN PO 02/09/25 17:00 Ondansetron HCl 4 mg Q4HPRN PRN IV 02/09/25 17:00 02/09/25 20:28 4 MG Morphine Sulfate 2 mg Q4HPRN PRN IV 02/09/25 17:00 Oxycodone/ Acetaminophen 1 tab Q4HP PRN PO 02/09/25 17:00 02/10/25 14:18 1 TAB Sennosides 8.6 mg HS PO 02/09/25 22:00 02/09/25 22:00 8.6 MG Albuterol 180 mcg Q4HP PRN IN 02/09/25 17:00 Cancel Amlodipine Besylate 10 mg DAILY PO 02/10/25 10:00 02/10/25 08:04 10 MG Cyclobenzaprine HCl 10 mg TID PRN PO 02/09/25 17:00 Gabapentin 600 mg TID PO 02/09/25 22:00 02/10/25 13:34 600 MG Levothyroxine Sodium 100 mcg QAM@0600 PO 02/10/25 06:00 02/10/25 06:24 100 MCG Metoprolol Succinate 50 mg DAILY PO 02/10/25 10:00 Trazodone HCl 50 mg QHSP PRN PO 02/09/25 17:00 Atorvastatin Calcium 40 mg HS PO 02/09/25 22:00 02/09/25 22:00 40 MG Duloxetine HCl 60 mg DAILY PO 02/10/25 10:00 02/10/25 08:04 60 MG Lactulose 15 ml BID PO 02/09/25 22:00 02/09/25 22:00 15 ML Pantoprazole Sodium 40 mg DAILY@0700 PO 02/10/25 07:00 02/10/25 08:04 40 MG Albuterol 2.5 mg Q4HPRN PRN NEB 02/10/25 05:30 Iron Sucrose 110 ml @ 110 mls/hr DAILY@1200 IV 02/10/25 14:15 02/12/25 12:59 02/10/25 16:47 110 MLS/HR Megestrol Acetate 20 mg BID PO 02/10/25 22:00 Enteral Nutritional Formula 4 oz BIDWM PO 02/10/25 18:00 objective Abdomen is soft nontender but wasted no rigidity no guarding laboratory and microbiology Laboratory Tests 02/09/25 12:45 Test 02/09/25 12:45 Range/Units Serum Glucose 132 H 74-106 mg/dL Assessment/Plan 74-year-old female with a history of diabetes anemia hypertension hypothyroidism GERD presenting with complaints of weakness tiredness weight loss anorexia and constipation Examination unremarkable except for cachectic looking and weak Labs hemoglobin is 11.4 rest of the labs are unremarkable Scan showed some nonspecific thickening of the colon possible infectious colitis as per the radiology but done without contrast Clinical impression Severe weight loss undetermined etiology He scan of the abdomen and pelvis with oral contrast failed to reveal any abnormalities The mild anemia and anorexia constipation and GI problems or GI malignancy or other upper GI pathology to be ruled out will treat symptomatically for now and if stable we will recommend to do GI workup including EGD and colon if patient feeling better as an outpatient at least Thank you Dr. Burton Plan discussed with: Patient JANEY BURTON MD Feb 10, 2025 21:56
[2025-02-10] MEDS: MEGESTROL ACETATE 20 MG TAB PO SCH (22:00)
[2025-02-11] VITALS (10 sets, daily range): BP systolic 116–196; BP diastolic 60–87; PULSE 68–104; RESP 17–18; TEMP 97.9–98.7; O2SAT 92–99
[2025-02-11] MEDS: POTASSIUM EFFERVESENT TAB 25 MEQ PO ONE (06:12)
[2025-02-11] MEDS: hydrALAZINE HCL 20 MG/ML VL IV PRN (08:44)
[2025-02-11] MEDS: HYDROmorphone HCL 2 MG/ML VL/or syr IV PRN (11:01)
--- NOTE | 2025-02-11 15:26 | DVHSR ---
APPROVED REPORT EXAM: Two-dimensional and M-mode echocardiogram with Doppler and color Doppler. Blood Pressure: 131/53 mmHg INDICATION Hypertension RISK FACTORS Height: 5'6", Weight: 88 DIMENSIONS LVDd4.1 (3.8-5.7cm)LA (2D)2.8 (1.9-4.0cm)Aortic Root3.0 (2.0-3.7cm) LVDs2.7 (2.5-4.0cm)LA (MM) (1.9-4.0cm)Aortic Cusp Exc1.5 (1.5-2.0cm) EF (%) 63.0 (55-70%)Rt. Atrium (1.9-4.0cm)Asc. Aorta cm IVSd1.0 (0.7-1.1cm)RV (D) (1.8-2.4cm) PWd0.8 (0.7-1.1cm) Mitral Valve MitralMitral Stenosis E wave1.31m/sMV Mean GR.mmHg A wave1.41m/sMV Peak GR.mmHg E/A ratio0.92D MVAcm2 DECEL [id number] 1/2 Timems Aortic Valve Aortic ValveAortic Stenosis V11.34m/Maria L Mean GR.9mmHg V22.04m/Maria L Peak GR.17mmHg LVOT Diameter1.8 (1.8-2.4cm)Doppler AVA1.67cm2 AI P 1/2 Kiqs317.45ms Tricuspid Valve TR Velocity2.32m/s [id number] Other Information Quality : Technically LimitedRhythm : Technically limited study due to body habitus. Conclusion lvef 70% normal rv function normal atria no severe valve abnormalities noted trivial pericardial effusion noted
--- NOTE | 2025-02-11 16:21 | DVHPN2 ---
Progress Note - Dictate Date Seen: Feb 11, 2025 Has the PT tested + for MRSA If YES, has PT been informed?: No Medical Necessity Reason Pt with a Central, PICC or Fol: No Subjective Today she complains of nausea and more pain. Requesting pain meds to be adjusted and and anxiolytic medications to be added. Patient apparently sees Dr. Castellano pain management physician does not have privileges to come to this hospital. Patient had a bowel movement this morning. She is evaluated by GI recommending outpatient follow up for possible EGD colonoscopy. vital signs Vital Sign Date Time Temp Pulse Resp B/P (MAP) Pulse Ox O2 Delivery O2 Flow Rate FiO2 02/11/25 13:06 98.7 94 17 175/75 (108) 99 98.7 02/11/25 08:12 Room Air 0.0 02/11/25 08:12 21 Total Intake and Output 02/10/25 02/10/25 02/11/25 15:00 23:00 07:00 Intake Total 375 ml 250 ml 400 ml Balance 375 ml 250 ml 400 ml medications Current Medications Medications Dose Ordered Sig/Shaila Route Start Time Stop Time Status Last Admin Dose Admin Nitroglycerin 0.4 mg Q5MINP PRN SL 02/09/25 17:00 Morphine Sulfate 2 mg Q30M PRN IV 02/09/25 17:00 Potassium Chloride/Sodium Chloride 1,000 ml @ 75 mls/hr [id number] IV 02/09/25 17:00 02/11/25 09:00 75 MLS/HR Clonidine HCl 0.1 mg Q4HP PRN PO 02/09/25 17:00 Ondansetron HCl 4 mg Q4HPRN PRN IV 02/09/25 17:00 02/11/25 07:43 4 MG Morphine Sulfate 2 mg Q4HPRN PRN IV 02/09/25 17:00 Oxycodone/ Acetaminophen 1 tab Q4HP PRN PO 02/09/25 17:00 02/11/25 12:39 1 TAB Sennosides 8.6 mg HS PO 02/09/25 22:00 02/10/25 21:58 8.6 MG Albuterol 180 mcg Q4HP PRN IN 02/09/25 17:00 Cancel Amlodipine Besylate 10 mg DAILY PO 02/10/25 10:00 02/10/25 08:04 10 MG Cyclobenzaprine HCl 10 mg TID PRN PO 02/09/25 17:00 Gabapentin 600 mg TID PO 02/09/25 22:00 02/10/25 13:34 600 MG Levothyroxine Sodium 100 mcg QAM@0600 PO 02/10/25 06:00 02/11/25 06:10 100 MCG Metoprolol Succinate 50 mg DAILY PO 02/10/25 10:00 Trazodone HCl 50 mg QHSP PRN PO 02/09/25 17:00 02/10/25 21:58 50 MG Atorvastatin Calcium 40 mg HS PO 02/09/25 22:00 02/10/25 21:58 40 MG Duloxetine HCl 60 mg DAILY PO 02/10/25 10:00 02/10/25 08:04 60 MG Lactulose 15 ml BID PO 02/09/25 22:00 02/10/25 21:58 15 ML Pantoprazole Sodium 40 mg DAILY@0700 PO 02/10/25 07:00 02/11/25 06:10 40 MG Albuterol 2.5 mg Q4HPRN PRN NEB 02/10/25 05:30 Iron Sucrose 110 ml @ 110 mls/hr DAILY@1200 IV 02/10/25 14:15 02/12/25 12:59 02/11/25 12:00 110 MLS/HR Megestrol Acetate 20 mg BID PO 02/10/25 22:00 Enteral Nutritional Formula 4 oz BIDWM PO 02/10/25 18:00 02/11/25 08:00 4 OZ Hydralazine HCl 10 mg Q4HPRN PRN IV 02/11/25 08:16 02/11/25 08:44 10 MG Hydromorphone HCl 0.4 mg Q4HPRN PRN IV 02/11/25 10:50 02/11/25 11:01 0.4 MG objective Elderly female alert awake oriented x3. Comfortable in bed. Anxious. HEENT neck supple no JVD pupils equal round react to light. Heart regular rate and rhythm S1-S2 no murmurs gallops. Lungs fair air movement. Chest tube will expansion no rales wheezes. Abdomen soft nontender positive bowel sounds. No organomegaly and no rebound or guarding. Extremities no edema positive distal pedal pulses. laboratory and microbiology Laboratory Tests 02/11/25 00:44 02/09/25 12:45 Test 02/09/25 12:45 Range/Units Serum Glucose 132 H 74-106 mg/dL Assessment/Plan I will add Xanax as anti anxiety medication. We will add scheduled Reglan for nausea and use Zofran as needed though per her it is not effective. Change Protonix to b.i.d. IV. Check lipase levels and labs in the morning. DVT prophylaxis. Physical therapy evaluation. Otherwise continue rest of supportive care and treatment as she is on. We will send a UA to make sure she has no UTI. Further clinical management per clinical course. Discussed with the patient along with the nurse at bedside regarding care plan. Problems(with codes): (1) Microcytic anemia (2) UTI (urinary tract infection) (3) Failure to thrive (4) Chronic pain Plan discussed with: Patient DUSTY QUINTANA MD Feb 11, 2025 16:21
[2025-02-11] MEDS: CYCLOBENZAPRINE HCL 10 MG TAB PO PRN (16:52)
[2025-02-11] MEDS ORDERED: NYSTATIN (MOUTH-THROAT) 500,000 UNITS/5 ML SUSP MT SCH (18:00)
--- NOTE | 2025-02-11 18:02 | DVHPN2 ---
Progress Note Date Seen: Feb 11, 2025 Resident Creating Document: BAY HANSENBINA RESIDENT Has the PT tested + for MRSA If YES, has PT been informed?: No Medical Necessity Reason Pt with a Central, PICC or Fol: No Subjective Review of Systems HPI Patient is a 74-year-old female with medical history of hypertension, GERD/PUD, diabetes, anemia presented to the hospital with a chief complaint of difficulty swallowing unable to eat over the last 4-6 weeks. Patient reports that she started to dysphagia with a sensation of food getting stuck in his throat about 6 months ago initially was to solids in the progressed to even liquids. Patient denied any hematemesis, hematochezia, melena. She does report of epigastric abdominal pain which is constant and has a episodes where it gets worse, denies any change with the food. Reports to have lost about 30 lb in the last 4-6 weeks. Reports her last EGD was about 8 years ago and a colonoscopy he also about the same time. While in the hospital patient underwent abdominal CT with oral and IV contrast which showed no acute abdominal or pelvic findings Review of systems Patient is today seen and examined at the bedside Reports of difficulty swallowing even the liquids Objective vital signs Vital Sign Date Time Temp Pulse Resp B/P (MAP) Pulse Ox O2 Delivery O2 Flow Rate FiO2 02/11/25 16:52 98.0 104 17 155/80 (105) 97 98.0 02/11/25 08:12 Room Air 0.0 02/11/25 08:12 21 Total Intake and Output 02/10/25 02/10/25 02/11/25 15:00 23:00 07:00 Intake Total 375 ml 250 ml 400 ml Balance 375 ml 250 ml 400 ml medications Current Medications Medications Dose Ordered Sig/Shaila Route Start Time Stop Time Status Last Admin Dose Admin Nitroglycerin 0.4 mg Q5MINP PRN SL 02/09/25 17:00 Morphine Sulfate 2 mg Q30M PRN IV 02/09/25 17:00 Potassium Chloride/Sodium Chloride 1,000 ml @ 75 mls/hr [id number] IV 02/09/25 17:00 02/11/25 09:00 75 MLS/HR Clonidine HCl 0.1 mg Q4HP PRN PO 02/09/25 17:00 Ondansetron HCl 4 mg Q4HPRN PRN IV 02/09/25 17:00 02/11/25 16:52 4 MG Morphine Sulfate 2 mg Q4HPRN PRN IV 02/09/25 17:00 Oxycodone/ Acetaminophen 1 tab Q4HP PRN PO 02/09/25 17:00 02/11/25 16:52 1 TAB Sennosides 8.6 mg HS PO 02/09/25 22:00 02/10/25 21:58 8.6 MG Albuterol 180 mcg Q4HP PRN IN 02/09/25 17:00 Cancel Amlodipine Besylate 10 mg DAILY PO 02/10/25 10:00 02/10/25 08:04 10 MG Cyclobenzaprine HCl 10 mg TID PRN PO 02/09/25 17:00 02/11/25 16:52 10 MG Gabapentin 600 mg TID PO 02/09/25 22:00 02/10/25 13:34 600 MG Levothyroxine Sodium 100 mcg QAM@0600 PO 02/10/25 06:00 02/11/25 06:10 100 MCG Metoprolol Succinate 50 mg DAILY PO 02/10/25 10:00 Trazodone HCl 50 mg QHSP PRN PO 02/09/25 17:00 02/10/25 21:58 50 MG Atorvastatin Calcium 40 mg HS PO 02/09/25 22:00 02/10/25 21:58 40 MG Duloxetine HCl 60 mg DAILY PO 02/10/25 10:00 02/10/25 08:04 60 MG Lactulose 15 ml BID PO 02/09/25 22:00 02/10/25 21:58 15 ML Albuterol 2.5 mg Q4HPRN PRN NEB 02/10/25 05:30 Iron Sucrose 110 ml @ 110 mls/hr DAILY@1200 IV 02/10/25 14:15 02/12/25 12:59 02/11/25 12:00 110 MLS/HR Megestrol Acetate 20 mg BID PO 02/10/25 22:00 Enteral Nutritional Formula 4 oz BIDWM PO 02/10/25 18:00 02/11/25 08:00 4 OZ Hydralazine HCl 10 mg Q4HPRN PRN IV 02/11/25 08:16 02/11/25 08:44 10 MG Hydromorphone HCl 0.4 mg Q4HPRN PRN IV 02/11/25 10:50 02/11/25 11:01 0.4 MG Metoclopramide HCl 5 mg Q8HR IV 02/11/25 22:00 Alprazolam 0.125 mg BID PO 02/11/25 22:00 Pantoprazole Sodium 40 mg BID IV 02/11/25 22:00 Enoxaparin Sodium 30 mg DAILY SC 02/12/25 10:00 Examination Gen - no pallor, no scleral icterus Skin - Patients skin is warm and dry. HEENT - normocephalic, atraumatic, dry mucous membranes. Oral thrush seen at the back of the tongue Neck - supple, no lymphadenopathy Pulmonary - B/L equal air entry with vesicular breath sounds cardiovascular - regular S1,S2 heard GI - soft nontender abdomen. Bowel sounds normoactive. Neurological - Patient is alert and oriented x4. No motor or sensory weakness laboratory and microbiology Laboratory Tests 02/11/25 00:44 02/09/25 12:45 Test 02/09/25 12:45 Range/Units Serum Glucose 132 H 74-106 mg/dL Microbiology Date/Time Source Procedure Growth Status 02/09/25 12:45 Blood Blood Culture - Preliminary NO GROWTH AFTER 48 HOURS OF INCUBATION. Resulted Problem List/Assessment/Plan Problem List/Assessment/Plan Assessment Progressive Dysphagia with significant weight loss Acute abdominal pain Iron-deficiency anemia Oral candidiasis Plan - imaging CT abdomen pelvis reviewed , showed no acute abdominal abnormality - plan for EGD tomorrow - IV iron - Protonix b.i.d. - NPO after midnight - nystatin swish and swallow Plan discussed with Dr. Ewing Plan discussed with: Patient, Other (MEGHNA Ulrich) GLENNY HANSEN RESIDENT Feb 11, 2025 18:02
[2025-02-11 18:17] LABS: Urine Protein, UAD Negative (Negative)
[2025-02-11] MEDS: NYSTATIN (MOUTH-THROAT) 500,000 UNITS/5 ML SUSP MT SCH (21:26)
[2025-02-11] MEDS: ALPRAZolam 0.25 MG TAB PO SCH (21:26)
[2025-02-11] MEDS: PANTOPRAZOLE 40 MG/10 ML VIAL INJ IV SCH (21:27)
[2025-02-11] MEDS: METOCLOPRAMIDE HCL 5MG/ml INJ 2ml VIAL IV SCH (21:29)
[2025-02-12] VITALS (12 sets, daily range): BP systolic 107–180; BP diastolic 54–84; PULSE 73–105; RESP 17–20; TEMP 98–99.2; O2SAT 95–98
--- NOTE | 2025-02-12 05:01 | DVH ---
CHEST RADIOGRAPH Indication: protocol for procedure Technique: Single frontal view of the chest was obtained COMPARISON: CT HIGH-RESOLUTION CHEST on DOS: 01/16/25, CT CT CHEST/AB/PL W CON- IV ONLY on DOS: 5, XY CHEST PORTABLE on DOS: 09/17/24, XY CHEST PORTABLE on DOS: 04/28/24, XY CHEST XRAY 1 VIEW on DOS: 04/21/24 FINDINGS: Lines and Tubes: None Lungs: Clear. Hyperinflation consistent with changes related to chronic obstructive pulmonary disease . Pleura: No effusion. No pneumothorax. Cardiomediastinal contours: Unremarkable Bones: Unremarkable IMPRESSION: 1. No acute cardiopulmonary disease.
[2025-02-12 07:31] LABS: Hematocrit 29.2 % (36.0-46.0); Hemoglobin 9.1 g/dL (12.2-16.2); Mean Corpuscular Hemoglobin 21.5 pg (28.0-32.0); Mean Corpuscular Volume 68.9 fL (80.0-100.0); Nucleated Red Blood Cells % 0.1 %
[2025-02-12 07:43] LABS: Alanine Aminotransferase 10 U/L (7-40); Albumin 3.5 g/dL (3.2-4.8); Alkaline Phosphatase 84 U/L (46-116); Anion Gap 11 (5-15); BUN/Creatinine Ratio 19.2 (10.0-20.0); Bilirubin, Total 0.7 mg/dL (0.2-1.0); Blood Urea Nitrogen 10 mg/dL (9-23); Calcium 8.9 mg/dL (8.7-10.4); Carbon Dioxide 29 mmol/L (20-31); Glucose 85 mg/dL (74-106); Sodium 137 mmol/L (136-145)
[2025-02-12 07:47] LABS: Chloride 97 mmol/L (98-107); Lipase 63 U/L (12-53); Potassium 3.1 mmol/L (3.5-5.1); Total Protein 4.9 g/dL (5.7-8.2)
[2025-02-12] MEDS: ENOXAPARIN SOD 30 MG/0.3 ML SYRINGE SC SCH (08:47)
[2025-02-12] MEDS ORDERED: LIDOCAINE 2% (LOCAL ANESTH.) PF 5ml SDV ONE (12:36)
[2025-02-12] MEDS ORDERED: ONDANSETRON HCL 4 MG/2 ML VIAL ONE (12:36)
[2025-02-12] MEDS ORDERED: fentaNYL CITRATE 100 MCG/2 ML VL ONE (12:36)
[2025-02-12] MEDS ORDERED: PROPOFOL 10 MG/ML 20 ML IV ONE (12:36)
[2025-02-12] MEDS ORDERED: MIDAZOLAM HCL 2MG/2ML 2ml VIAL (1mg/ml) ONE (12:36)
[2025-02-12] MEDS ORDERED: GLYCOPYRROLATE 0.2 MG/ML 1ML VIAL ONE (12:36)
--- NOTE | 2025-02-12 13:11 | DVHOP2 ---
Operative Report DATE OF OPERATION: 02/12/25 PROCEDURE: Upper Endoscopy with biopsy. PREOPERATIVE INDICATION: The patient is a 74 -year-old female undergoing endoscopy for weight loss anemia and nausea and dyspepsia POSTOPERATIVE DIAGNOSES: 1. 0.5 cm sliding-type hiatal hernia with no significant erosive esophagitis and some tertiary contractions of the esophagus 2. 2-3 cm gastric ulcer Boni classification C seen in the distal body of the stomach with surrounding hyperemia erythema and mucosal edema from which biopsies were obtained 3. 2 cm duodenal ulcer Boni classification C on the posterior surface of the duodenal bulb and mild effacement of the duodenal mucosa 4. Otherwise normal examination up to the 2nd and 3rd part of the duodenal with no active bleeding no fresh or old blood PROCEDURE PERFORMED BY: Regina Ewing GI NURSE: Brittnee SCOPE: Olympus videoendoscope. ASA CLASS: 3 PREOPERATIVE MEDICATIONS: Mac sedation, Dr. Valadez PROCEDURE IN DETAIL: After obtaining an informed consent, the patient was placed on left lateral decubitus position. The patient was then sedated with the above medications. A bite block was placed between her teeth. The endoscope was then passed through the oropharynx, into the esophagus, and through the stomach and pylorus up to the second and third part of the duodenum. The endoscope was then withdrawn. The 2nd and 3rd part of the duodenal showed mild effacement of the duodenal mucosa and the duodenal bulb showed a moderate 2 cm size duodenal bulb ulcer on the posterior surface of the bulb Boni classification C with no visible vessel but surrounding duodenitis Duodenal biopsies were obtained. The pre-pyloric area antrum and body showed gastritis and there was a 2-3 cm gastric ulcer Boni classification in the distal body of the stomach with surrounding mucosal edema hyperemia and puckering up of the gastric mucosa and multiple biopsies were obtained from the edges of the ulcer and from the gastric antrum. There was no visible vessel or active bleeding. On retroflexion the fundus and cardia were normal. No fresh or old blood in the upper GI tract A patient had a 0.5-1 cm sliding- type hiatal hernia with slightly irregular squamocolumnar junction no significant erosive esophagitis. GE junction biopsies were obtained The remaining distal and proximal esophagus showed evidence of some tertiary contractions of esophagus The patient tolerated the procedure well without difficulty. COMPLICATIONS : None SPECIMENS: Duodenal biopsies Gastric biopsies GE junction biopsies [facility] Stable PLAN: 1. Await for biopsy result 2. Will place pt on Protonix 40 mg bid IV 3. Carafate suspension 1 g p.o. 4 times a day 4. Resume full liquid diet 5. DC aspirin NSAIDs smoking alcohol 6. Outpatient follow up with me to review biopsy results and discuss outpatient elective screening colonoscopy REGINA EWING MD Feb 12, 2025 13:11
[2025-02-12] MEDS ORDERED: HYDROmorphone HCL 2 MG/ML VL/or syr IV PRN (13:15)
--- NOTE | 2025-02-12 14:46 | DVHPN2 ---
Progress Note - Dictate Date Seen: Feb 12, 2025 Has the PT tested + for MRSA If YES, has PT been informed?: No Medical Necessity Reason Pt with a Central, PICC or Fol: No Subjective Patient underwent EGD this morning showed gastritis/duodenitis. GI recommending Protonix and Carafate. Patient is otherwise comfortable no complaints. vital signs Vital Sign Date Time Temp Pulse Resp B/P (MAP) Pulse Ox O2 Delivery O2 Flow Rate FiO2 02/12/25 13:48 82 17 122/61 02/12/25 13:30 100 02/12/25 13:30 Room Air 0 100 02/12/25 13:03 97.1 97.1 Total Intake and Output 02/11/25 02/11/25 02/12/25 15:00 23:00 07:00 Intake Total 110 ml 100 ml 0 ml Output Total 400 ml Balance 110 ml 100 ml -400 ml medications Current Medications Medications Dose Ordered Sig/Shaila Route Start Time Stop Time Status Last Admin Dose Admin Nitroglycerin 0.4 mg Q5MINP PRN SL 02/09/25 17:00 Morphine Sulfate 2 mg Q30M PRN IV 02/09/25 17:00 Clonidine HCl 0.1 mg Q4HP PRN PO 02/09/25 17:00 02/11/25 22:37 0.1 MG Ondansetron HCl 4 mg Q4HPRN PRN IV 02/09/25 17:00 02/11/25 21:47 4 MG Morphine Sulfate 2 mg Q4HPRN PRN IV 02/09/25 17:00 Oxycodone/ Acetaminophen 1 tab Q4HP PRN PO 02/09/25 17:00 02/11/25 21:25 1 TAB Sennosides 8.6 mg HS PO 02/09/25 22:00 02/11/25 21:26 8.6 MG Albuterol 180 mcg Q4HP PRN IN 02/09/25 17:00 Cancel Amlodipine Besylate 10 mg DAILY PO 02/10/25 10:00 02/12/25 09:41 10 MG Cyclobenzaprine HCl 10 mg TID PRN PO 02/09/25 17:00 02/11/25 16:52 10 MG Gabapentin 600 mg TID PO 02/09/25 22:00 02/11/25 21:25 600 MG Levothyroxine Sodium 100 mcg QAM@0600 PO 02/10/25 06:00 02/11/25 06:10 100 MCG Metoprolol Succinate 50 mg DAILY PO 02/10/25 10:00 02/12/25 09:41 50 MG Trazodone HCl 50 mg QHSP PRN PO 02/09/25 17:00 02/11/25 21:36 50 MG Atorvastatin Calcium 40 mg HS PO 02/09/25 22:00 02/11/25 21:25 40 MG Duloxetine HCl 60 mg DAILY PO 02/10/25 10:00 02/10/25 08:04 60 MG Lactulose 15 ml BID PO 02/09/25 22:00 02/10/25 21:58 15 ML Albuterol 2.5 mg Q4HPRN PRN NEB 02/10/25 05:30 Megestrol Acetate 20 mg BID PO 02/10/25 22:00 Enteral Nutritional Formula 4 oz BIDWM PO 02/10/25 18:00 02/11/25 18:01 4 OZ Hydralazine HCl 10 mg Q4HPRN PRN IV 02/11/25 08:16 02/11/25 21:27 10 MG Hydromorphone HCl 0.4 mg Q4HPRN PRN IV 02/11/25 10:50 02/12/25 13:48 0.4 MG Metoclopramide HCl 5 mg Q8HR IV 02/11/25 22:00 02/11/25 21:29 5 MG Alprazolam 0.125 mg BID PO 02/11/25 22:00 02/11/25 21:26 0.125 MG Enoxaparin Sodium 30 mg DAILY SC 02/12/25 10:00 Nystatin 5 ml QID MT 02/11/25 22:00 02/11/25 21:26 5 ML Sucralfate 1 gm QID@0600,1130,1700,2200 PO 02/12/25 17:00 Pantoprazole Sodium 40 mg BID@0600,1700 PO 02/12/25 17:00 UNV objective Elderly female alert awake oriented x3. Comfortable in bed. Anxious. HEENT neck supple no JVD pupils equal round react to light. Heart regular rate and rhythm S1-S2 no murmurs gallops. Lungs fair air movement. Chest tube will expansion no rales wheezes. Abdomen soft nontender positive bowel sounds. No organomegaly and no rebound or guarding. Extremities no edema positive distal pedal pulses. laboratory and microbiology Laboratory Tests 02/12/25 05:20 Test 02/12/25 05:20 Range/Units Serum Glucose 85 74-106 mg/dL Assessment/Plan Acute gastritis/duodenitis status post EGD Microcytic anemia receiving IV iron transfusion Chronic pain syndrome Narcotic dependence Patient is advised to follow up outpatient with the GI for elective colonoscopy in 3-4 weeks. DC fluids. Replace potassium orally. Start Protonix and Carafate per recommendations from GI orally. Monitor her overnight. Advance diet to soft diet. Consider discharge home tomorrow. Discussed with the patient. Plan discussed with: Patient DUSTY QUINTANA MD Feb 12, 2025 14:46
[2025-02-12] MEDS ORDERED: SUCR1SUS26 PO (14:54)
[2025-02-12] MEDS ORDERED: PANT40T PO (14:54)
[2025-02-12] MEDS: SUCRALFATE 1 GM/10 ML ORAL SUSP PO SCH (17:55)
[2025-02-12] MEDS: POTASSIUM EFFERVESENT TAB 25 MEQ PO SCH (17:55)
[2025-02-12] MEDS: PANTOPRAZOLE 40 MG TAB PO SCH (17:56)
[2025-02-13 01:00] VITALS: BP 111/57; PULSE 83; RESP 18; TEMP 98.3; O2SAT 98
[2025-02-13 05:00] VITALS: BP 125/76; PULSE 70; RESP 18; TEMP 98; O2SAT 95
[2025-02-13 08:00] VITALS: PULSE 94; RESP 17; O2SAT 98
[2025-02-13 08:33] VITALS: BP 127/60; PULSE 72; RESP 17; TEMP 97.9; O2SAT 94
--- NOTE | 2025-02-13 12:48 | DVHDS2 ---
Discharge Summary Date of Admission Feb 09, 2025 at 16:49 Date of Discharge: Feb 13, 2025 Labs/Diagnostic Data: Laboratory Results Test 02/12/25 05:20 02/11/25 17:01 02/10/25 07:10 02/09/25 14:48 White Blood Count 6.4 10^3/uL (4.4-10.8) Red Blood Count 4.23 10^6/uL (4.0-5.20) Hemoglobin 9.1 g/dL (12.2-16.2) Hematocrit 29.2 % (36.0-46.0) Mean Corpuscular Volume 68.9 fL (80.0-100.0) Mean Corpuscular Hemoglobin 21.5 pg (28.0-32.0) Mean Corpuscular Hemoglobin Concent 31.1 g/dL (32.0-36.0) Red Cell Distribution Width 18.8 % (11.8-14.3) Platelet Count 249 10^3/uL (140-450) Mean Platelet Volume 8.0 fL (6.9-10.8) Neutrophils (%) (Auto) 56.9 % (37.0-80.0) Lymphocytes (%) (Auto) 34.7 % (10.0-50.0) Monocytes (%) (Auto) 7.9 % (0.0-12.0) Eosinophils (%) (Auto) 0.2 % (0.0-7.0) Basophils (%) (Auto) 0.3 % (0.0-2.0) Neutrophils # (Auto) 3.7 10 ^3/uL (1.6-8.6) Lymphocytes # (Auto) 2.2 10 ^3/uL (0.4-5.4) Monocytes # (Auto) 0.5 10 ^3/uL (0-1.3) Eosinophils # (Auto) 0 10 ^3/uL (0-0.8) Basophils # (Auto) 0 10 ^3/uL (0-0.2) Nucleated Red Blood Cells 0.1 % Sodium Level 137 mmol/L (136-145) Potassium Level 3.1 mmol/L (3.5-5.1) Chloride Level 97 mmol/L (98-107) Carbon Dioxide Level 29 mmol/L (20-31) Anion Gap 11 (5-15) Blood Urea Nitrogen 10 mg/dL (9-23) Creatinine 0.52 mg/dL (0.550-1.02) Glomerular Filtration Rate Calc 97 mL/min (>90) BUN/Creatinine Ratio 19.2 (10.0-20.0) Serum Glucose 85 mg/dL (74-106) Calcium Level 8.9 mg/dL (8.7-10.4) Total Bilirubin 0.7 mg/dL (0.2-1.0) Aspartate Amino Transferase (AST) 13 U/L (13-40) Alanine Aminotransferase (ALT) 10 U/L (7-40) Alkaline Phosphatase 84 U/L (46-116) Total Protein 4.9 g/dL (5.7-8.2) Albumin 3.5 g/dL (3.2-4.8) Lipase 63 U/L (12-53) Urine Color Light-yellow (Yellow) Urine Clarity Clear (Clear) Urine pH 6.0 (5.0-9.0) Urine Specific [place] 1.012 (1.001-1.035) Urine Protein Negative (Negative) Urine Ketones 2+ (Negative) Urine Blood Negative /uL (Negative) Urine Nitrite Negative (Negative) Urine Bilirubin Negative (Negative) Urine Urobilinogen Normal mg/dL (Negative) Urine Leukocyte Esterase Negative /uL (Negative) Urine RBC 1 /hpf (0 - 4) Urine Microscopic WBC /HPF (0-5) Urine Squamous Epithelial Cells Few /hpf (<5) Urine Bacteria None seen /hpf (None Seen) Urine Glucose Normal mg/dL (Normal) Prothrombin Time 11.0 sec (9.3-11.8) Prothrombin Time INR 1.04 (0.9-1.15) Activated Partial Thromboplast Time 23.4 SEC (24.5-34.5) Urine Hyaline Casts Few /lpf (0 - 2) Test 02/09/25 12:45 02/09/25 01:51 Lactic Acid Level 1.5 mmol/L (0.4-2.0) Iron Level 23 ug/dL (50-170) Total Iron Binding Capacity 390 ug/dL (250-425) Percent Iron Saturation 5.9 % (15-50) Ferritin 9.6 ng/mL (10-291) Lactate Dehydrogenase 220 U/L (120-246) Thyroid Stimulating Hormone (TSH) 0.92 uIU/mL (0.55-4.78) Free Thyroxine (T4) Calculated 2.01 ng/dL (0.89-1.76) Stool Occult Blood Negative (Negative) Stool Occult Blood Sample #3 (Negative) Other Laboratory Tests 02/12/25 05:20 Brief Hx & Hospital Course: Information in this HPI is limited due to the patient being a poor historian. 74-year-old female with past medical history of hypertension, GERD, constipation presents with complaints of ongoing abdominal pain. Patient is endorsing that she has chronic constipation. Also endorsing nausea. Family also reported 30 lb weight loss. On arrival to the emergency department patient was found to be hypertensive with blood pressure 210/90. CT of the abdomen and pelvis without contrast impression reads mild wall thickening of the colon may reflect mild infectious/ inflammatory colitis. At this time patient denies fevers, chills, shortness of breath, palpitations, chest pain, leg swelling, dysuria, hematemesis, hematochezia, melena. Operations or Procedures Operative Report DATE OF OPERATION: 02/12/25 PROCEDURE: Upper Endoscopy with biopsy. PREOPERATIVE INDICATION: The patient is a 74 -year-old female undergoing endoscopy for weight loss anemia and nausea and dyspepsia POSTOPERATIVE DIAGNOSES: 1. 0.5 cm sliding-type hiatal hernia with no significant erosive esophagitis and some tertiary contractions of the esophagus 2. 2-3 cm gastric ulcer Boni classification C seen in the distal body of the stomach with surrounding hyperemia erythema and mucosal edema from which biopsies were obtained 3. 2 cm duodenal ulcer Boni classification C on the posterior surface of the duodenal bulb and mild effacement of the duodenal mucosa 4. Otherwise normal examination up to the 2nd and 3rd part of the duodenal with no active bleeding no fresh or old blood PROCEDURE PERFORMED BY: Regina Ewing GI NURSE: Brittnee SCOPE: Olympus videoendoscope. ASA CLASS: 3 PREOPERATIVE MEDICATIONS: Dr. Rory Kothari PROCEDURE IN DETAIL: After obtaining an informed consent, the patient was placed on left lateral decubitus position. The patient was then sedated with the above medications. A bite block was placed between her teeth. The endoscope was then passed through the oropharynx, into the esophagus, and through the stomach and pylorus up to the second and third part of the duodenum. The endoscope was then withdrawn. The 2nd and 3rd part of the duodenal showed mild effacement of the duodenal mucosa and the duodenal bulb showed a moderate 2 cm size duodenal bulb ulcer on the posterior surface of the bulb Boni classification C with no visible vessel but surrounding duodenitis Duodenal biopsies were obtained. The pre-pyloric area antrum and body showed gastritis and there was a 2-3 cm gastric ulcer Boni classification in the distal body of the stomach with surrounding mucosal edema hyperemia and puckering up of the gastric mucosa and multiple biopsies were obtained from the edges of the ulcer and from the gastric antrum. There was no visible vessel or active bleeding. On retroflexion the fundus and cardia were normal. No fresh or old blood in the upper GI tract A patient had a 0.5-1 cm sliding- type hiatal hernia with slightly irregular squamocolumnar junction no significant erosive esophagitis. GE junction biopsies were obtained The remaining distal and proximal esophagus showed evidence of some tertiary contractions of esophagus The patient tolerated the procedure well without difficulty. COMPLICATIONS : None SPECIMENS: Duodenal biopsies Gastric biopsies GE junction biopsies DISPOSITION: Transfer back to the floor Stable PLAN: 1. Await for biopsy result 2. Will place pt on Protonix 40 mg bid IV 3. Carafate suspension 1 g p.o. 4 times a day 4. Resume full liquid diet 5. DC aspirin NSAIDs smoking alcohol 6. Outpatient follow up with me to review biopsy results and discuss outpatient elective screening colonoscopy REGINA EWING MD Feb 12, 2025 13:11 Final Diagnosis/Problems List Microcytic anemia, adult failure to thrive, gastritis/duodenitis status post EGD Discharge Disposition: Home Discharge Instruct/Medications Diet: Consistent carbohydrate, Cardiac 2g Na,low cholest Activity: No Restrictions, As Tolerated Follow Up/Referral: Dr. Ewing/Russell and Gastroenterology in 4-6 weeks for colonoscopy and to follow up results of gastric/duodenal biopsies Medications: As prescribed and home medications as you are taking. Scheduled Albuterol Sulfate (Albuterol Sulfate), 1 VIAL NEB Q4HPRN Amlodipine Besylate (Amlodipine Besylate), 10 MG PO DAILY Atorvastatin Calcium (Atorvastatin Calcium), 1 TAB PO DAILY, (Reported) Clonidine Hydrochloride (Clonidine Hcl), 0.1 MG PO BID Duloxetine Hcl (Cymbalta), 1 CAP PO DAILY, (Reported) Gabapentin (Gabapentin), 600 MG PO TID Hydrocodone-Acetaminophen (Hydrocodone Bitartrate/AC 10-325 mg), 1 TAB PO Q6HP, (Reported) Lactulose (Lactulose), 10 GM PO BID Levothyroxine Sodium (Synthroid), 1 TAB PO DAILY, (Reported) Methocarbamol (Methocarbamol), 750 MG PO BID, (Reported) Metoprolol Succinate (Metoprolol Succinate Er), 50 MG PO DAILY Omeprazole (Gnp Omeprazole), 40 MG PO DAILY, (Reported) Pantoprazole Sodium Sesquihydr (Pantoprazole Sodium), 40 MG PO BID Sucralfate (Carafate Susp), 10 ML PO BID Scheduled PRN Albuterol Sulfate (Albuterol Sulfate Hfa), 108 MCG IN Q4HP PRN Cyclobenzaprine HCl (Cyclobenzaprine Hydrochlo), 10 MG PO TID PRN Naproxen (Naprosyn Tablet), 1 TAB PO BID PRN Ondansetron (Zofran), 1 TAB PO Q6HR PRN Trazodone HCl (Trazodone Hydrochloride), 50 MG PO QHSP PRN Durable Medical Equipment Misc. Devices (Blood Pressure Monitor), EA XX DAILY, (DME) Discharge Statement: "Patient was advised to return to the ER or call 911 if any headaches, dizziness, shortness of breath, chest pain, abdominal pain, bleeding, fevers, or worsening of medical condition. Patient was counseled about treatment plan, medications, possible side effects, patientverbalized understanding. All questions were answered to the best of my ability. This discharge took greater then 30 minutes in planning, reviewing documentation, counseling the patient, and discussing with other team members." ASSESSMENT ASSESSMENT Assessment Microcytic anemia, adult failure to thrive, gastritis/duodenitis status post EGD DUSTY QUINTANA MD Feb 13, 2025 12:48
[2025-02-13] MEDS ORDERED: NUTR-345 OR (12:49)
[2025-02-13 13:00] VITALS: BP 205/92; PULSE 89; RESP 16; TEMP 98; O2SAT 100
[2025-02-13] MEDS ORDERED: LORazepam 2MG/ML-1ML VIAL IV PRN (14:00)
[2025-02-13 17:04] VITALS: BP 189/88; PULSE 91; RESP 16; TEMP 98; O2SAT 97
[2025-02-13] MEDS ORDERED: PHEN1TAB38 PO (17:09)
--- NOTE | 2025-02-13 21:18 | DVHPN2 ---
Progress Note - Dictate Date Seen: Feb 13, 2025 (Late entryTime of visit 5:00 p.m.) Has the PT tested + for MRSA If YES, has PT been informed?: No Medical Necessity Reason Pt with a Central, PICC or Fol: No Subjective No new complaints Patient is tolerating her diet EGD findings reviewed with the patient Patient was taking aspirin for her headaches vital signs Vital Sign Date Time Temp Pulse Resp B/P (MAP) Pulse Ox O2 Delivery O2 Flow Rate FiO2 02/13/25 17:04 98.0 91 16 189/88 (121) 97 98.0 02/13/25 08:00 Room Air* 0 21 Total Intake and Output 02/12/25 02/12/25 02/13/25 15:00 23:00 07:00 Intake Total 600 ml 350 ml Balance 600 ml 350 ml medications Current Medications Medications Dose Ordered Sig/Shaila Route Start Time Stop Time Status Last Admin Dose Admin Albuterol 180 mcg Q4HP PRN IN 02/09/25 17:00 Cancel objective Gen - no pallor, no scleral icterus Skin - Patients skin is warm and dry. HEENT - normocephalic, atraumatic, dry mucous membranes. Oral thrush seen at the back of the tongue Neck - supple, no lymphadenopathy Pulmonary - B/L equal air entry with vesicular breath sounds cardiovascular - regular S1,S2 heard GI - soft nontender abdomen. Bowel sounds normoactive. Neurological - Patient is alert and oriented x4. No motor or sensory weakness laboratory and microbiology Laboratory Tests 02/12/25 05:20 Test 02/12/25 05:20 Range/Units Serum Glucose 85 74-106 mg/dL Problems(with codes): (1) Peptic ulcer disease (2) Acute abdominal pain (3) Microcytic anemia Prognosis Plan Discharge planning is in progress Maintained on Protonix 40 mg p.o. twice a day Carafate 1 g p.o. twice a day Patient was counseled about discontinuing aspirin and using Tylenol instead Outpatient follow up with me to discuss elective colonoscopy Plan discussed with: Patient, Other (Dr Lagne) REGINA FARAH MD Feb 13, 2025 21:18
== END 2025-02-13 18:35 | disposition home or self-care (01) | DRG 384 ==
LOC: ER 12:03 → EDBD 12:03 → OVERFLOW 16:49 → WEST WING 02-10 15:37
PROVIDERS: ADMIT Hospitalist; ATTEND Hospitalist
PROC: 0DB68ZX Excision of Stomach, Via Natural or Artificial Opening Endoscopic, Diagnostic (ICD-10-PCS; 2025-02-12)
PROC: 0DB48ZX Excision of Esophagogastric Junction, Via Natural or Artificial Opening Endoscopic, Diagnostic (ICD-10-PCS; 2025-02-12)
PROC: 0DB98ZX Excision of Duodenum, Via Natural or Artificial Opening Endoscopic, Diagnostic (ICD-10-PCS; principal; 2025-02-12 12:48)
DX: K26.9 Duodenal ulcer, unspecified as acute or chronic, without hemorrhage or perforation (principal); A09 Infectious gastroenteritis and colitis, unspecified; B37.0 Candidal stomatitis; I16.1 Hypertensive emergency; F11.20 Opioid dependence, uncomplicated; Z68.1 Body mass index [BMI] 19.9 or less, adult; K29.00 Acute gastritis without bleeding; K29.80 Duodenitis without bleeding; K44.9 Diaphragmatic hernia without obstruction or gangrene; D50.9 Iron deficiency anemia, unspecified; R62.7 Adult failure to thrive; E87.6 Hypokalemia; R63.4 Abnormal weight loss; K21.9 Gastro-esophageal reflux disease without esophagitis; E11.9 Type 2 diabetes mellitus without complications; K59.09 Other constipation; J44.9 Chronic obstructive pulmonary disease, unspecified; I10 Essential (primary) hypertension; F41.9 Anxiety disorder, unspecified; F32.A Depression, unspecified; E03.9 Hypothyroidism, unspecified; G89.4 Chronic pain syndrome; R13.10 Dysphagia, unspecified; Z90.710 Acquired absence of both cervix and uterus; Z87.11 Personal history of peptic ulcer disease; Z90.49 Acquired absence of other specified parts of digestive tract; Z82.5 Family history of asthma and other chronic lower respiratory diseases; Z80.49 Family history of malignant neoplasm of other genital organs
CPT/HCPCS: 36415; 43239; 71045; 74176; 74177; 80053; 81001; 82270; 82728; 83540; 83550; 83605; 83615; 83690; 84132; 84439; 84443; 85025; 85610; 85730; 86850; 86900; 86901; 87040; 87077; 87086; 87186; 93005; 93306; 96361; 96374; 96375; 97110; 97163; 97530; 99291; 99292; G0378; J1756; J2003; J2250; J2405; J2470; J2704